=== PATIENT | male | born 1955 | race Caucasian/White ===

== ENCOUNTER 2020-04-22 10:28 | Outpatient (REF) | payer MEDICARE, SELFPAY ==
[2020-04-22 11:15] LABS: MANUAL DIFF FLAG NO
[2020-04-22 11:31] LABS: Basophils Percent Auto 0.2 % (0-2); Eosinophils Percent Auto 0.2 % (0-4); Hematocrit 45.9 % (42-52); Hemoglobin 15.9 g/dl (14.0-18.0); Imm Gran Abs Auto 0.03 X10*3/uL (0.00-0.03); Imm Gran Pct Auto 0.6 % (0.0-0.4); Lymphocytes Absolute Auto 1.8 X10*3/uL (1.2-4.9); Lymphocytes Percent Auto 35.3 % (20-40); Mean Corpuscular HGB Conc 34.6 g/dl (31.0-36.0); Mean Corpuscular Hemoglobin 29.9 pg (27.0-33.0); Mean Corpuscular Volume 86.3 fL (80-98); Mean Platelet Volume 9.2 fL (9.4-12.4); Monocytes Absolute Auto 0.5 X10*3/uL (0.1-1.2); Monocytes Percent Auto 9.8 % (2-11); Neutrophils Absolute Auto 2.7 X10*3/uL (2.0-8.3); Neutrophils Percent Auto 53.9 % (45-73); Platelet Count 255 X10*3/uL (160-400); Red Blood Count 5.32 X10*6/uL (4.60-5.80); Red Cell Distribution Width 12.8 % (11.0-16.0)
[2020-04-22 12:16] LABS: Anion Gap 13 (12-20); Blood Urea Nitrogen 18 mg/dL (9-16); Calcium 8.8 mg/dL (8.4-10.2); Carbon Dioxide 28 mmol/L (22-29); Chloride 102 mmol/L (96-108); Cholesterol 139 mg/dL; Estimated Glomerular Filt Rate > 60; Glucose Fasting 93 mg/dL (60-99); HDL Cholesterol 35 mg/dL; LDL Cholesterol Calculated 65 mg/dl; Potassium 4.3 mmol/l (3.3-5.1); Sodium 139 mmol/L (135-145); Triglycerides 199 mg/dL
== END 2020-04-22 10:29 | disposition home or self-care (01) ==
LOC: HO.HMGCLDS 10:28
PROVIDERS: PCP Internal Medicine; Visit Provider Internal Medicine
DX: E66.9 Obesity, unspecified (principal); K21.9 Gastro-esophageal reflux disease without esophagitis; I10 Essential (primary) hypertension; E78.9 Disorder of lipoprotein metabolism, unspecified; J45.909 Unspecified asthma, uncomplicated; Z91.09 Other allergy status, other than to drugs and biological substances
CPT/HCPCS: 36415; 80048; 80061; 84443; 85025

== ENCOUNTER 2020-08-26 12:08 | Outpatient (REF) | payer MEDICARE, SELFPAY ==
[2020-08-26 14:45] LABS: Alanine Aminotransferase 31 U/L (0-40); Albumin Level 4.4 g/dL (3.5-5.0); Alkaline Phosphatase 81 U/L (39-117); Anion Gap 16 (12-20); Aspartate Amino Transferase 24 U/L (5-37); Bilirubin Total 1.3 mg/dL (0.0-1.0); Blood Urea Nitrogen 13 mg/dL (9-16); Calcium 9.5 mg/dL (8.4-10.2); Carbon Dioxide 29 mmol/L (22-29); Chloride 101 mmol/L (96-108); Estimated Glomerular Filt Rate > 60; Glucose Random 91 mg/dL (60-115); Potassium 4.1 mmol/L (3.3-5.1); Sodium 142 mmol/L (135-145); Total Protein 7.6 g/dL (6.5-8.0)
[2020-08-26 15:01] LABS: Vitamin B12 379 pg/mL (200-900)
[2020-08-26 15:06] LABS: Prostate Specific Antigen 2.39 ng/mL (<0.05-4.0)
== END 2020-08-26 12:09 | disposition home or self-care (01) ==
LOC: HO.HMGCLDS 12:08
PROVIDERS: PCP Internal Medicine; Visit Provider Internal Medicine
DX: E53.8 Deficiency of other specified B group vitamins (principal); E66.9 Obesity, unspecified; R35.1 Nocturia; K21.9 Gastro-esophageal reflux disease without esophagitis; J45.909 Unspecified asthma, uncomplicated; I10 Essential (primary) hypertension; E78.9 Disorder of lipoprotein metabolism, unspecified; Z91.09 Other allergy status, other than to drugs and biological substances
CPT/HCPCS: 36415; 80053; 82607; 84153

== ENCOUNTER 2021-03-07 07:01 | Outpatient (REF) | payer MEDICARE, SELFPAY ==
[2021-03-07 11:55] LABS: MANUAL DIFF FLAG NO
[2021-03-07 12:04] LABS: Basophils Percent Auto 0.2 % (0-2); Eosinophils Percent Auto 0.5 % (0-4); Hematocrit 47.6 % (42-52); Hemoglobin 16.1 g/dl (14.0-18.0); Imm Gran Abs Auto 0.02 X10*3/uL (0.00-0.03); Imm Gran Pct Auto 0.3 % (0.0-0.4); Lymphocytes Absolute Auto 2.2 X10*3/uL (1.2-4.9); Lymphocytes Percent Auto 35.2 % (20-40); Mean Corpuscular HGB Conc 33.8 g/dl (31.0-36.0); Mean Corpuscular Hemoglobin 29.4 pg (27.0-33.0); Mean Platelet Volume 9.9 fL (9.4-12.4); Monocytes Absolute Auto 0.6 X10*3/uL (0.1-1.2); Monocytes Percent Auto 9.7 % (2-11); Neutrophils Absolute Auto 3.3 X10*3/uL (2.0-8.3); Neutrophils Percent Auto 54.1 % (45-73); Platelet Count 238 X10*3/uL (160-400); Red Blood Count 5.47 X10*6/uL (4.60-5.80); Red Cell Distribution Width 13.3 % (11.0-16.0); White Blood Count 6.1 X10*3/uL (4.8-10.8)
[2021-03-07 12:32] LABS: TSH reflex Free T4 0.87 uIU/mL (0.32-4.0)
[2021-03-07 12:33] LABS: Alanine Aminotransferase 28 U/L (0-40); Albumin Level 4.2 g/dL (3.5-5.0); Alkaline Phosphatase 79 U/L (39-117); Anion Gap 13 (12-20); Aspartate Amino Transferase 20 U/L (5-37); Blood Urea Nitrogen 16 mg/dL (9-16); Calcium 9.2 mg/dL (8.4-10.2); Carbon Dioxide 28 mmol/L (22-29); Chloride 103 mmol/L (96-108); Cholesterol 168 mg/dL; Estimated Glomerular Filt Rate > 60; Glucose Fasting 120 mg/dL (60-99); HDL Cholesterol 38 mg/dL; LDL Cholesterol Calculated 79 mg/dl; Potassium 3.9 mmol/L (3.3-5.1); Sodium 140 mmol/L (135-145); Triglycerides 259 mg/dL
[2021-03-07 12:43] LABS: Total Protein 7.3 g/dL (6.5-8.0)
[2021-03-07 12:45] LABS: Vitamin B12 275 pg/mL (200-900)
== END 2021-03-07 07:02 | disposition home or self-care (01) ==
LOC: HO.HMGCLDS 07:01
PROVIDERS: PCP Internal Medicine; Visit Provider Internal Medicine
DX: I10 Essential (primary) hypertension (principal); R73.01 Impaired fasting glucose; E78.9 Disorder of lipoprotein metabolism, unspecified; J45.909 Unspecified asthma, uncomplicated; K21.9 Gastro-esophageal reflux disease without esophagitis; E66.9 Obesity, unspecified; E53.8 Deficiency of other specified B group vitamins; Z91.09 Other allergy status, other than to drugs and biological substances
CPT/HCPCS: 36415; 80053; 80061; 82607; 84443; 85025

== ENCOUNTER 2021-03-17 13:36 | Outpatient (REF) | payer MEDICARE, SELFPAY ==
--- NOTE | 2021-03-22 10:20 | MHC.AU.AEV ---
Adult Audiological Evaluation Date of Visit: 03/17/21 Reason for Appointment: History of hearing loss and right-sided middle ear dysfunction. Patient has used hearing aids in the past. He has history of chronic middle ear problems in his right ear. He reports that he saw [facility] Thro[facility] many years ago, and they were considering placing a PE tube in his right ear. Ultimately, the procedure was not performed, as the next time he went to the office the middle ear fluid was gone. He continues to experience middle ear issues in the right ear, including occasional discharge. Does patient feel they have a hearing loss?: Yes If Yes, Which Ear?: Both Ears Ear History: Ear Deformity: None Reported Recent Ear Drainage: Right Ear Recent Ear Pain: None Reported Family History of Hearing Loss?: Yes: Father Recent Ear Infections: Right Ear History of Ear Wax Buildup: None Reported Previous Ear Surgery: None Reported Bothersome Tinnitus/Ringing/Noises in Ears: Both Ears Blocked/Full Sensation in Ear(s): None Reported History of occupational noise exposure?: Yes History: No Medical History: Medical History: High Blood Pressure Otoscopy: Right Ear: Fluid behind tympanic membrane Left Ear: Unremarkable Tympanometry: Tympanometry performed due to: To assess integrity of the middle ear system Right Ear: Non-compliant Middle Ear System (Type B) Left Ear: Hypercompliant Middle Ear System (Type Ad) Hearing Evaluation: Transducer(s) Used: Insert Earphones Method: Conventional Audiometry Stimuli Used: Pure Tones Right Ear: Description of Hearing: Mild sloping to profound and rising to moderate mixed hearing loss Left Ear: Description of Hearing: Borderline-normal sloping to severe mixed hearing loss Speech Recognition Threshold (SRT): Method Used: Recorded Lists Stimuli Used: Spondee Words Right Ear: 30 dBHL Left Ear: 25 dBHL Word Discrimination: Method: Recorded Lists Word Lists Used:: W-22 Right Ear: 80% at 70 dBHL Left Ear: 76% at 70 dBHL Most Comfortable Level (MCL): Right Ear: 70 dBHL Left Ear: 70 dBHL Interpretation of Results: Patient presents with mixed hearing loss bilaterally, worse in the right ear. Fluid was noted behind the right tympanic membrane. Recommendations: Referral to [facility], [facility] and Throat is highly recommended to address on-going middle ear fluid/discharge in the right ear. Patient is interested in using hearing aids again. At this time, our clinic is not able to accept the hearing aid benefit from his insurance provider. It is recommended that he contact his insurance provider to inquire about the hearing aid benefit and to see which clinics in the area are participating providers. Diagnosis: Primary Diagnosis: H90.6 Mixed Hearing Loss, Bilateral Signature: Provider: Lindsey Hopkins, [facility]
== END 2021-03-17 13:37 | disposition home or self-care (01) ==
LOC: HO.SH 13:36
PROVIDERS: Visit Provider Internal Medicine
DX: H90.6 Mixed conductive and sensorineural hearing loss, bilateral (principal)
CPT/HCPCS: 92557; 92567

== ENCOUNTER 2021-10-04 10:26 | Outpatient (REF) | payer MEDICARE, SELFPAY ==
[2021-10-04 11:36] LABS: Estimated Average Glucose 117 mg/dL; Hemoglobin A1c % 5.7 %
[2021-10-04 11:48] LABS: Alanine Aminotransferase 48 U/L (0-40); Albumin Level 4.2 g/dL (3.5-5.0); Alkaline Phosphatase 91 U/L (39-117); Anion Gap 10 (12-20); Aspartate Amino Transferase 32 U/L (5-37); Bilirubin Total 1.3 mg/dL (0.0-1.0); Blood Urea Nitrogen 11 mg/dL (9-16); Calcium 9.5 mg/dL (8.4-10.2); Carbon Dioxide 31 mmol/L (22-29); Chloride 101 mmol/L (96-108); Estimated Glomerular Filt Rate > 60; Glucose Random 116 mg/dL (60-115); Potassium 4.3 mmol/L (3.3-5.1); Sodium 138 mmol/L (135-145); Total Protein 7.5 g/dL (6.5-8.0)
[2021-10-06 03:51] LABS: LDL Cholesterol Direct 84 mg/dL (<100)
== END 2021-10-04 10:27 | disposition home or self-care (01) ==
LOC: HO.HMGCLDS 10:26
PROVIDERS: Visit Provider Internal Medicine
DX: E53.8 Deficiency of other specified B group vitamins (principal); E66.9 Obesity, unspecified; E78.9 Disorder of lipoprotein metabolism, unspecified; I10 Essential (primary) hypertension; J45.20 Mild intermittent asthma, uncomplicated; K21.9 Gastro-esophageal reflux disease without esophagitis; R35.89 Other polyuria; Z91.09 Other allergy status, other than to drugs and biological substances
CPT/HCPCS: 36415; 80053; 83036; 83721

== ENCOUNTER 2022-04-16 09:58 | Outpatient (REF) | payer MEDICARE, SELFPAY ==
[2022-04-16 11:51] LABS: Estimated Average Glucose 105 mg/dL; Hemoglobin A1c % 5.3 %
[2022-04-16 12:00] LABS: Alanine Aminotransferase 23 U/L (0-40); Albumin Level 4.2 g/dL (3.5-5.0); Alkaline Phosphatase 78 U/L (39-117); Anion Gap 16 (12-20); Aspartate Amino Transferase 20 U/L (5-37); Bilirubin Total 1.1 mg/dL (0.0-1.0); Blood Urea Nitrogen 16 mg/dL (9-16); Calcium 9.3 mg/dL (8.4-10.2); Carbon Dioxide 27 mmol/L (22-29); Chloride 102 mmol/L (96-108); Estimated Glomerular Filt Rate > 60; Glucose Random 107 mg/dL (60-115); Potassium 3.9 mmol/L (3.3-5.1); Sodium 141 mmol/L (135-145); Total Protein 7.2 g/dL (6.5-8.0)
[2022-04-16 13:21] LABS: Vitamin B12 416 pg/mL (200-900)
[2022-04-20 15:22] LABS: Vitamin D 25-OH, D2 <4 ng/mL; Vitamin D 25-OH, D3 34 ng/mL; Vitamin D 25-OH, Total 34 ng/mL (30-100)
== END 2022-04-16 09:59 | disposition home or self-care (01) ==
LOC: HO.HMGCLDS 09:58
PROVIDERS: PCP Internal Medicine; Visit Provider Internal Medicine
DX: E53.8 Deficiency of other specified B group vitamins (principal); E66.09 Other obesity due to excess calories; E78.9 Disorder of lipoprotein metabolism, unspecified; I10 Essential (primary) hypertension; K21.9 Gastro-esophageal reflux disease without esophagitis; R73.01 Impaired fasting glucose; R79.89 Other specified abnormal findings of blood chemistry; Z91.09 Other allergy status, other than to drugs and biological substances
CPT/HCPCS: 36415; 80053; 82306; 82607; 83036

== ENCOUNTER → 2022-06-07 10:40 | Outpatient (BNVA) | payer MEDICARE, SELFPAY | PROVIDERS: PCP Internal Medicine; Visit Provider Nurse Practitioner Family | DX: G89.29 Other chronic pain (principal); M54.50 Low back pain, unspecified; M25.552 Pain in left hip; M25.562 Pain in left knee; M62.838 Other muscle spasm | CPT/HCPCS: 99202 ==

== ENCOUNTER 2022-06-12 11:10 | Outpatient (REF) | payer MEDICARE, SELFPAY ==
--- NOTE | ~2022-06-12 | XR_ITS ---
EXAMINATION: XR BILATERAL HIPS WITH AP PELVIS CLINICAL INFORMATION: M25.552 - Pain in left hip COMPARISON: None TECHNIQUE: AP view of the pelvis is performed. Each hip is imaged in AP and frog-lateral projections for a total of 5 views. FINDINGS: There is no fracture, dislocation, destructive process. The SI joints and pubis show no diastases. The bony pelvis is intact. There is some mild bilateral spurring versus punctate mineralization adjacent to the ischial tuberosities likely related to origin hamstrings. There is mild loss of height vertebral body L4 with associated vertebral spurring suggesting probable chronic change. Clinically correlate. The right hip shows no joint narrowing or erosive change. There is minor spurring caudal aspect greater trochanter. Probable punctate mineralization adjacent to superior aspect right intertrochanteric likely related to tendon insertion. Left hip shows no joint narrowing or erosive change. There is spurring greater trochanter with some subtle mineralization likely related to the tendon insertion. There is also some benign calcification in the posterior lateral upper thigh soft tissues, possibly injection granuloma or related to old trauma. XR/XR hip BI w PEL1V IMPRESSION: -No hip joint narrowing or erosive change. -Mineralization near origin hamstrings and tendon insertion greater trochanters suggesting calcific tendinosis. -Mild loss of height vertebral body L4 with associated vertebral spurring suggesting probable chronic change. Clinically correlate.
--- NOTE | ~2022-06-12 | XR_ITS ---
EXAMINATION: XR KNEE, LEFT CLINICAL INFORMATION: M25.562 - Pain in left knee COMPARISON: None TECHNIQUE: Three views of the left knee. FINDINGS: Normal bony mineralization. No fracture, dislocation, or destructive process. No joint narrowing or erosive change. No suprapatellar effusion. Hoffa's fat. Appears normal. No lateralization or tilting patella. XR/XR knee LT 3V IMPRESSION: Unremarkable left knee.
== END 2022-06-12 11:11 | disposition home or self-care (01) ==
LOC: HO.XRAY 11:10
PROVIDERS: PCP Internal Medicine; Visit Provider Nurse Practitioner Family
DX: M25.552 Pain in left hip (principal); M25.562 Pain in left knee
CPT/HCPCS: 73521; 73562

== ENCOUNTER 2022-07-24 07:08 | Outpatient (REF) | payer MEDICARE, SELFPAY | END 2022-07-24 07:09 | disposition home or self-care (01) | LOC: CF 07:08 | PROVIDERS: Visit Provider Anesthesiology | DX: M25.552 Pain in left hip (principal); M25.562 Pain in left knee; M62.838 Other muscle spasm; M54.50 Low back pain, unspecified; G89.29 Other chronic pain | CPT/HCPCS: 20610; 99212 ==

== ENCOUNTER 2022-10-25 10:11 | Outpatient (REF) | payer MEDICARE, SELFPAY ==
[2022-10-25 11:20] LABS: MANUAL DIFF FLAG NO
[2022-10-25 11:36] LABS: Basophils Percent Auto 0.4 % (0-2); Eosinophils Percent Auto 0.4 % (0-4); Hematocrit 44.8 % (42.0-52.0); Hemoglobin 15.7 g/dl (14.0-18.0); Imm Gran Abs Auto 0.03 X10*3/uL (0.00-0.03); Imm Gran Pct Auto 0.6 % (0.0-0.4); Lymphocytes Absolute Auto 1.7 X10*3/uL (1.2-4.9); Lymphocytes Percent Auto 31.8 % (20-40); Mean Corpuscular Volume 85.5 fL (80.0-98.0); Mean Platelet Volume 9.6 fL (9.4-12.4); Monocytes Absolute Auto 0.6 X10*3/uL (0.1-1.2); Monocytes Percent Auto 10.4 % (2-11); Neutrophils Percent Auto 56.4 % (45-73); Platelet Count 230 X10*3/uL (160-400); Red Blood Count 5.24 X10*6/uL (4.60-5.80); Red Cell Distribution Width 13.2 % (11.0-16.0); White Blood Count 5.4 X10*3/uL (4.8-10.8)
[2022-10-25 11:38] LABS: Estimated Average Glucose 103 mg/dL; Hemoglobin A1c % 5.2 %
[2022-10-25 12:00] LABS: Alanine Aminotransferase 24 U/L (0-40); Albumin Level 4.2 g/dL (3.5-5.0); Alkaline Phosphatase 76 U/L (39-117); Anion Gap 13 (12-20); Aspartate Amino Transferase 23 U/L (5-37); Bilirubin Total 2.1 mg/dL (0.0-1.0); Blood Urea Nitrogen 16 mg/dL (9-16); Calcium 9.8 mg/dL (8.4-10.2); Carbon Dioxide 29 mmol/L (22-29); Chloride 103 mmol/L (96-108); Cholesterol 162 mg/dL; Estimated Glomerular Filt Rate > 60; Glucose Fasting 95 mg/dL (60-99); Glucose Random 95 mg/dL (60-115); HDL Cholesterol 35 mg/dL; LDL Cholesterol Calculated 72 mg/dl; Potassium 3.9 mmol/L (3.3-5.1); Sodium 141 mmol/L (135-145); Triglycerides 275 mg/dL
[2022-10-25 12:21] LABS: Vitamin B12 467 pg/mL (200-900)
[2022-11-01 17:38] LABS: Vitamin D 25-OH, D2 <4 ng/mL; Vitamin D 25-OH, D3 34 ng/mL; Vitamin D 25-OH, Total 34 ng/mL (30-100)
== END 2022-10-25 10:12 | disposition home or self-care (01) ==
LOC: HO.HMGCLDS 10:11
PROVIDERS: PCP Internal Medicine; Visit Provider Internal Medicine
DX: Z00.01 Encounter for general adult medical examination with abnormal findings (principal); E53.8 Deficiency of other specified B group vitamins; E66.09 Other obesity due to excess calories; E78.9 Disorder of lipoprotein metabolism, unspecified; I10 Essential (primary) hypertension; J45.20 Mild intermittent asthma, uncomplicated; K21.9 Gastro-esophageal reflux disease without esophagitis; Z91.09 Other allergy status, other than to drugs and biological substances; R73.01 Impaired fasting glucose
CPT/HCPCS: 36415; 80053; 80061; 82306; 82607; 83036; 85025

== ENCOUNTER 2023-02-25 09:05 | Outpatient (REF) | payer MEDICARE, SELFPAY ==
[2023-02-25 11:57] LABS: MANUAL DIFF FLAG NO
[2023-02-25 12:11] LABS: Basophils Percent Auto 0.4 % (0-2); Eosinophils Percent Auto 0.6 % (0-4); Hematocrit 45.2 % (42.0-52.0); Hemoglobin 15.5 g/dl (14.0-18.0); Imm Gran Abs Auto 0.01 X10*3/uL (0.00-0.03); Imm Gran Pct Auto 0.2 % (0.0-0.4); Lymphocytes Absolute Auto 1.6 X10*3/uL (1.2-4.9); Lymphocytes Percent Auto 33.3 % (20-40); Mean Corpuscular HGB Conc 34.3 g/dl (31.0-36.0); Mean Corpuscular Hemoglobin 29.6 pg (27.0-33.0); Mean Corpuscular Volume 86.3 fL (80.0-98.0); Mean Platelet Volume 9.6 fL (9.4-12.4); Monocytes Absolute Auto 0.4 X10*3/uL (0.1-1.2); Monocytes Percent Auto 8.4 % (2-11); Neutrophils Absolute Auto 2.8 x10*3/uL (2.0-8.3); Neutrophils Percent Auto 57.1 % (45-73); Platelet Count 203 X10*3/uL (160-400); Red Blood Count 5.24 X10*6/uL (4.60-5.80); Red Cell Distribution Width 13.3 % (11.0-16.0); White Blood Count 4.9 X10*3/uL (4.8-10.8)
[2023-02-25 13:26] LABS: Vitamin B12 895 pg/mL (200-900)
[2023-03-02 18:28] LABS: Vitamin D 25-OH, D2 <4 ng/mL; Vitamin D 25-OH, D3 33 ng/mL; Vitamin D 25-OH, Total 33 ng/mL (30-100)
== END 2023-02-25 09:06 | disposition home or self-care (01) ==
LOC: HO.HMGCLDS 09:05
PROVIDERS: PCP Internal Medicine; Visit Provider Internal Medicine
DX: Z00.01 Encounter for general adult medical examination with abnormal findings (principal); E66.09 Other obesity due to excess calories; E53.8 Deficiency of other specified B group vitamins; E78.9 Disorder of lipoprotein metabolism, unspecified; I10 Essential (primary) hypertension; K21.9 Gastro-esophageal reflux disease without esophagitis; J45.20 Mild intermittent asthma, uncomplicated; Z91.09 Other allergy status, other than to drugs and biological substances
CPT/HCPCS: 36415; 82306; 82607; 85025

== ENCOUNTER 2023-02-26 09:58 | Outpatient (AMB) | payer MEDICARE, SELFPAY ==
--- NOTE | 2023-02-26 10:02 | MHC.PC.OV ---
Vital Signs 02/26/23 10:09 Height 5 ft 8 in Weight 231 lb 8 oz BMI 35.2 BP 112/74 Blood Pressure Location Lt brachial Position Sitting Pulse 68 Pulse Source Pulse Oximeter Pulse Oximetry (%) 96 Oxygen Delivery Method Room Air Intake Visit Reasons: 3m follow up htn Allergies acetaminophen [Percocet] Allergy (Unknown, Verified 02/26/23 10:02) Unknown amlodipine Allergy (Unknown, Verified 02/26/23 10:02) foot swelling codeine Allergy (Unknown, Verified 02/26/23 10:02) Unknown oxycodone [Percocet] Allergy (Unknown, Verified 02/26/23 10:02) Unknown atenolol Adverse Reaction (Mild, Verified 02/26/23 10:02) bradycardia Environmental Allergy (Unknown, Uncoded 09/08/22 11:19) Unknown Medication List - Last Reconciled 02/26/23 by Keena Scherer MD albuterol sulfate 90 mcg/actuation (ProAir HFA) 2 puffs inhalation Q4H PRN aspirin (Adult Low Dose Aspirin) 81 mg PO DAILY azithromycin 250 mg PO ONCE 5 days cetirizine (All Day Allergy (cetirizine)) 10 mg PO DAILY PRN 90 days cholecalciferol (vitamin D3) 50 mcg PO DAILY cyanocobalamin (vitamin B-12) 1,000 mcg PO DAILY 90 days fluticasone propionate 50 mcg/actuation 1 spray intranasal DAILY irbesartan-hydrochlorothiazide 300-12.5 mg 1 tab PO DAILY 90 days lisinopril 10 mg PO DAILY omega-3 acid ethyl esters 2 caps PO BID 90 days omeprazole 20 mg PO DAILY 90 days simvastatin 20 mg PO DAILY 90 days Tobacco use date assessed: 02/26/23 Fall risk assessment: No Falls in past year Last assessed Fall Risk: 02/26/23 Dental Screening Dental Screen Date: 02/26/23 Did you have a dental visit in the last 12 months?: No Did you have a dental problem in the last 6 months where you did not have access to dental care?: No Was dental information given to patient?: Patient declined HPI 3m follow up htn HPI Details Patient is a 67-year-old male came in today for his regular follow-up visit.? Hypertension:? Patient was on irbesartan hydrochlorothiazide and lisinopril, I have stopped lisinopril I have sent irbesartan 300 mg separately and increased hydrochlorothiazide to 25 mg He has developed tinea corporis, and is requesting treatment I have sent 1 tablet of Diflucan 200 mg Continue B12 and vitamin-D, Patient is on omeprazole for dyspepsia.? Symptoms controlled Impaired fasting sugar: Diet-controlled BMI is elevated, need to lose weight Back pain management through [facility] Allergies stable patient is on Flonase nasal spray and Zyrtec ? Follow-up 3 months Labs to be repeated before next visit [facility] Medical History B12 deficiency Obesity Environmental allergies Chronic GERD Asthma Hypertension, essential Lipid disorder Surgical History History of appendectomy Family History Father History of open heart surgery Kidney stone HTN (hypertension) Mother HTN (hypertension) Rheumatoid arthritis Maternal Grandfather No problems noted. Maternal Grandmother No problems noted. Paternal Grandfather Diabetes mellitus Stroke Maternal Grandmother No problems noted. Sister No problems noted. Daughter No problems noted. Brother No problems noted. Brother No problems noted. Brother No problems noted. Brother No problems noted. Brother No problems noted. Social History Housing: House Alcohol intake: never Patient Tobacco Use Status: Former Tobacco user Years Smoked: 3 years e-Cigarette/Vaping Use: Never Used service: No Current occupational status: retired Cognitive needs: No Hearing needs: No Vision needs: Yes Questionnaire PHQ-9 Over the last 2 weeks, how often have you been bothered by any of the following problems? 1. Little interest or pleasure in doing things: not at all 2. Feeling down, depressed, or hopeless: not at all 3. Trouble falling or staying asleep, or sleeping too much: not at all 4. Feeling tired or having little energy: not at all 5. Poor appetite or overeating: not at all 6. Feeling bad about yourself - or that you are a failure or have let yourself or your family down: not at all 7. Trouble concentrating on things, such as reading the newspaper or watching television: not at all 8. Moving or speaking so slowly that other people could have noticed. Or the opposite - being so fidgety or restless that you have been moving around a lot more than usual: not at all 9. Thoughts that you would be better off or of hurting yourself in some way: not at all Total score: 0 Depression Screening Interpretation: Negative 28244 - PHQ-9 Billing: Yes Source: Developed by Drs. Tim Howard, Hilary Landis, Nacho Putnam and colleagues, with an educational nicole from [employer]. Thrive Questionnaire Date Thrive assessed: 10/17/21 BENITA-7 AMB Questionnaire BENITA-7 Date BENITA - 7 assessed: 10/17/21 Source: Developed by Drs. Tim Howard, Hilary Ladnis, Nacho Putnam and colleagues, with an educational nicole from [employer]. Review of Systems Const Denies chills and Denies fever(s) ENT Denies epistaxis and Denies nasal discharge Card Denies chest pain Resp Denies chest congestion, Denies cough and Denies hemoptysis GI Denies diarrhea and Denies nausea Neuro Reports no additional complaints Psych Reports no additional complaints Endo Reports no additional complaints Physical exam (Primary Care) Vital Signs: Last Vital Signs Pulse 68 02/26/23 10:09 BP 112/74 02/26/23 10:09 Pulse Ox 96 02/26/23 10:09 Oxygen Delivery Method Room Air 02/26/23 10:09 BMI result Body Mass Index 35.2 Tobacco/Smoking Status: Tobacco use Status Tobacco use date assessed 02/26/23 02/26/23 10:03 Patient Tobacco Use Status Former Tobacco user 02/26/23 10:03 e-Cigarette/Vaping Use Never Used 02/26/23 10:03 Depression Screening Interpretation: Negative Thrive Assessment: Date of Thrive Assessment Date Thrive assessed 10/17/21 02/26/23 10:03 Const General: cooperative, comfortable and no acute distress Orientation/consciousness: patient oriented x3 HENMT Head: Yes normocephalic Eyes General: appearance normal, both eyes and all related structures Neck Neck: Yes supple Resp Effort & Inspection: normal respiratory effort, no cough and no stridor Cardio Rhythm: regular rhythm Heart sounds: S1 normal heart sound present and S2 normal heart sound present Skin Other: Patchy discolored rash with skills at the age scattered all over body General skin exam: turgor normal Neuro General: patient oriented x3, tone normal and moves all extremities Extrem Right lower extremity: no edema Left lower extremity: no edema Assessment and Plan Assessment & Plan (1) Hypertension, essential: Code(s): I10 - Essential (primary) hypertension (2) Lipid disorder: Code(s): E78.9 - Disorder of lipoprotein metabolism, unspecified (3) Chronic GERD: Code(s): K21.9 - Gastro-esophageal reflux disease without esophagitis (4) Asthma: Code(s): J45.909 - Unspecified asthma, uncomplicated Qualifiers: Asthma complication type: unspecified Asthma persistence: intermittent Asthma severity: mild Qualified Code(s): J45.20 - Mild intermittent asthma, uncomplicated (5) Environmental allergies: Code(s): Z91.09 - Other allergy status, other than to drugs and biological substances (6) B12 deficiency: Code(s): E53.8 - Deficiency of other specified B group vitamins (7) Obesity due to excess calories: Code(s): E66.09 - Other obesity due to excess calories Qualifiers: Body mass index: BMI 35.0-35.9 Obesity classification: adult class 2 (BMI 35 - 39.9) Serious obesity comorbidity presence: with serious comorbidity Qualified Code(s): E66.01 - Morbid (severe) obesity due to excess calories; Z68.35 - Body mass index [BMI] 35.0-35.9, adult (8) Elevated fasting blood sugar: Code(s): R73.01 - Impaired fasting glucose (9) 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 Hypertension:? Patient was on irbesartan hydrochlorothiazide and lisinopril, I have stopped lisinopril I have sent irbesartan 300 mg separately and increased hydrochlorothiazide to 25 mg He has developed tinea corporis, and is requesting treatment I have sent 1 tablet of Diflucan 200 mg Continue B12 and vitamin-D, Patient is on omeprazole for dyspepsia.? Symptoms controlled Impaired fasting sugar: Diet-controlled BMI is elevated, need to lose weight Back pain management through [facility] Allergies stable patient is on Flonase nasal spray and Zyrtec ? Follow-up 3 months Labs to be repeated before next visit Orders: Orders Vitamin B12 Today E53.8 - Deficiency of other specified B group vitamins, R73.01 - Impaired fasting glucose Hemoglobin A1c Today E53.8 - Deficiency of other specified B group vitamins, R73.01 - Impaired fasting glucose Comprehensive Met. Panel Today E53.8 - Deficiency of other specified B group vitamins, E66.09 - Other obesity due to excess calories, E78.9 - Disorder of lipoprotein metabolism, unspecified, I10 - Essential (primary) hypertension, J45.909 - Unspecified asthma, uncomplicated, K21.9 - Gastro-esophageal reflux disease without esophagitis, R73.01 - Impaired fasting glucose, Z91.09 - Other allergy status, other than to drugs and biological substances LDL Cholesterol Direct Today E53.8 - Deficiency of other specified B group vitamins, E66.09 - Other obesity due to excess calories, E78.9 - Disorder of lipoprotein metabolism, unspecified, I10 - Essential (primary) hypertension, J45.909 - Unspecified asthma, uncomplicated, K21.9 - Gastro-esophageal reflux disease without esophagitis, R73.01 - Impaired fasting glucose, Z91.09 - Other allergy status, other than to drugs and biological substances Medications: New irbesartan 300 mg PO DAILY 90 tabs 1RF hydrochlorothiazide 25 mg PO QAM 90 tabs 1RF fluconazole (Diflucan) 200 mg PO DAILY 1 tab 0RF Discontinued lisinopril Discontinued Reason: Doctor's Order 10 mg PO DAILY 90 tabs 0RF irbesartan-hydrochlorothiazide 300-12.5 mg Discontinued Reason: Doctor's Order 1 tab PO DAILY 90 days 90 tabs 0RF Coding Level of Care Code Est Pt Level 4 (77495) Diagnoses Hypertension, essential I10 Lipid disorder E78.9 Chronic GERD K21.9 Mild intermittent asthma, unspecified whether complicated J45.20 Asthma complication type: unspecified Asthma persistence: intermittent Asthma severity: mild Environmental allergies Z91.09 B12 deficiency E53.8 Class 2 severe obesity due to excess calories with serious comorbidity and body mass index (BMI) of 35.0 to 35.9 in adult E66.01; Z68.35 Body mass index: BMI 35.0-35.9 Obesity classification: adult class 2 (BMI 35 - 39.9) Serious obesity comorbidity presence: with serious comorbidity Elevated fasting blood sugar R73.01 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
[2023-02-26 10:09] VITALS: BP 112/74; PULSE 68; O2SAT 96; BMI 35.2
== END 2023-02-26 10:32 | disposition home or self-care (01) ==
PROVIDERS: PCP Internal Medicine; Visit Provider Internal Medicine
DX: I10 Essential (primary) hypertension (principal); K21.9 Gastro-esophageal reflux disease without esophagitis; J45.20 Mild intermittent asthma, uncomplicated; Z68.35 Body mass index [BMI] 35.0-35.9, adult; E66.01 Morbid (severe) obesity due to excess calories; Z91.09 Other allergy status, other than to drugs and biological substances; E53.8 Deficiency of other specified B group vitamins; E78.9 Disorder of lipoprotein metabolism, unspecified; R73.01 Impaired fasting glucose; B35.4 Tinea corporis
CPT/HCPCS: 99214

== ENCOUNTER 2023-05-16 11:12 | Outpatient (REF) | payer MEDICARE, SELFPAY ==
[2023-05-16 13:44] LABS: Estimated Average Glucose 108 mg/dL; Hemoglobin A1c % 5.4 % (<6.0)
[2023-05-16 13:50] LABS: Alanine Aminotransferase 22 U/L (0-40); Albumin Level 4.3 g/dL (3.5-5.0); Alkaline Phosphatase 91 U/L (39-117); Anion Gap 14 (12-20); Aspartate Amino Transferase 22 U/L (5-37); Bilirubin Total 1.7 mg/dL (0.0-1.0); Blood Urea Nitrogen 14 mg/dL (9-16); Calcium 9.6 mg/dL (8.4-10.2); Carbon Dioxide 28 mmol/L (22-29); Chloride 100 mmol/L (96-108); Estimated Glomerular Filt Rate > 60; Glucose Random 90 mg/dL (60-115); Potassium 4.2 mmol/L (3.3-5.1); Sodium 138 mmol/L (135-145); Total Protein 7.7 g/dL (6.5-8.0)
[2023-05-16 14:12] LABS: Vitamin B12 801 pg/mL (200-900)
[2023-05-17 13:05] LABS: LDL Cholesterol Direct 67 mg/dL (<100)
== END 2023-05-16 11:13 | disposition home or self-care (01) ==
LOC: HO.HMGCLDS 11:12
PROVIDERS: PCP Internal Medicine; Visit Provider Internal Medicine
DX: E53.8 Deficiency of other specified B group vitamins (principal); R73.01 Impaired fasting glucose; E78.9 Disorder of lipoprotein metabolism, unspecified; I10 Essential (primary) hypertension; J45.909 Unspecified asthma, uncomplicated; K21.9 Gastro-esophageal reflux disease without esophagitis; E66.09 Other obesity due to excess calories; Z91.09 Other allergy status, other than to drugs and biological substances
CPT/HCPCS: 36415; 80053; 82607; 83036; 83721

== ENCOUNTER 2023-06-19 14:15 | Outpatient (AMB) | payer MEDICARE, SELFPAY ==
[2023-06-19 14:16] VITALS: BP 132/80; PULSE 50; O2SAT 98; BMI 35.4
--- NOTE | 2023-06-19 14:16 | A.OFFPC_ITS ---
Vital Signs 06/19/23 14:16 Height 5 ft 8 in Weight 233 lb BMI 35.4 BP 132/80 Blood Pressure Location Lt brachial Position Sitting Pulse 50 Pulse Source Pulse Oximeter Pulse Oximetry (%) 98 Oxygen Delivery Method Room Air Intake Visit Reasons: 6m follow up htn Allergies acetaminophen [Percocet] Allergy (Unknown, Verified 06/19/23 14:17) Unknown amlodipine Allergy (Unknown, Verified 06/19/23 14:17) foot swelling codeine Allergy (Unknown, Verified 06/19/23 14:17) Unknown oxycodone [Percocet] Allergy (Unknown, Verified 06/19/23 14:17) Unknown atenolol Adverse Reaction (Mild, Verified 06/19/23 14:17) bradycardia Environmental Allergy (Unknown, Uncoded 09/08/22 11:19) Unknown Medication List - Last Reconciled 06/19/23 by Keena Scherer MD albuterol sulfate 90 mcg/actuation (ProAir HFA) 2 puffs inhalation Q4H PRN aspirin (Adult Low Dose Aspirin) 81 mg PO DAILY cholecalciferol (vitamin D3) 50 mcg PO DAILY cyanocobalamin (vitamin B-12) 1,000 mcg PO DAILY 90 days fluticasone propionate 50 mcg/actuation 1 spray intranasal DAILY hydrochlorothiazide 25 mg PO QAM irbesartan 300 mg PO DAILY omega-3 acid ethyl esters 2 caps PO BID 90 days omeprazole 20 mg PO DAILY 90 days simvastatin 20 mg PO DAILY 90 days Tobacco use date assessed: 06/19/23 Fall risk assessment: No Falls in past year Last assessed Fall Risk: 06/19/23 Dental Screening Dental Screen Date: 06/19/23 Did you have a dental visit in the last 12 months?: No Did you have a dental problem in the last 6 months where you did not have access to dental care?: No Was dental information given to patient?: No HPI 6m follow up htn HPI Details Patient is a 68-year-old male came in today for his regular follow-up visit.? Patient is in his usual state of health, except that he developed cough for the past 4 days which is better now however his sinuses are acting up and he has frontal headache Patient says that he also feel congested in his chest labs were done May that is last month, reviewed again, his total bili was 1.7 we will continue to monitor Hypertension:? Patient patient is on irbesartan 300 mg and hydrochlorothiazide 25 mg, blood pressure is stable patient is tolerating medication no side effects Continue B12 and vitamin-D, Patient is on omeprazole for dyspepsia.? Symptoms controlled Impaired fasting sugar: Diet-controlled BMI is elevated, need to lose weight Back pain management through [facility] [place] Allergies stable patient is on Flonase nasal spray and Zyrtec ? He is requesting refill on his albuterol inhaler for intermittent asthma Follow-up 3 months [facility] Medical History B12 deficiency Obesity Environmental allergies Chronic GERD Asthma Hypertension, essential Lipid disorder Surgical History History of appendectomy Family History Father History of open heart surgery Kidney stone HTN (hypertension) Mother HTN (hypertension) Rheumatoid arthritis Maternal Grandfather No problems noted. Maternal Grandmother No problems noted. Paternal Grandfather Diabetes mellitus Stroke Maternal Grandmother No problems noted. Sister No problems noted. Daughter No problems noted. Brother No problems noted. Brother No problems noted. Brother No problems noted. Brother No problems noted. Brother No problems noted. Social History Housing: House Alcohol intake: never Patient Tobacco Use Status: Former Tobacco user Years Smoked: 3 years e-Cigarette/Vaping Use: Never Used service: No Current occupational status: retired Cognitive needs: No Hearing needs: No Vision needs: Yes Questionnaire Thrive Questionnaire Date Thrive assessed: 10/17/21 BENITA-7 AMB Questionnaire BENITA-7 Date BENITA - 7 assessed: 10/17/21 Source: Developed by Drs. Tim Howard, Hilary Landis, Nacho Putnam and colleagues, with an educational nicole from [employer]. Review of Systems Const Denies chills and Denies fever(s) ENT Denies epistaxis and Denies nasal discharge Card Denies chest pain Resp Denies chest congestion, Denies cough and Denies hemoptysis GI Denies diarrhea and Denies nausea Skin/Breast Denies rash Neuro Reports no additional complaints Psych Reports no additional complaints Endo Reports no additional complaints Physical exam (Primary Care) Vital Signs: Last Vital Signs Pulse 50 06/19/23 14:16 BP 132/80 06/19/23 14:16 Pulse Ox 98 06/19/23 14:16 Oxygen Delivery Method Room Air 06/19/23 14:16 BMI result Body Mass Index 35.4 Tobacco/Smoking Status: Tobacco use Status Tobacco use date assessed 06/19/23 06/19/23 14:21 Patient Tobacco Use Status Former Tobacco user 06/19/23 14:16 e-Cigarette/Vaping Use Never Used 06/19/23 14:16 Thrive Assessment: Date of Thrive Assessment Date Thrive assessed 10/17/21 06/19/23 14:16 Const General: cooperative, comfortable and no acute distress Orientation/consciousness: patient oriented x3 HENMT Head: Yes normocephalic Eyes General: appearance normal, both eyes and all related structures Neck Neck: Yes supple Resp Effort & Inspection: normal respiratory effort, no cough and no stridor Cardio Rhythm: regular rhythm Heart sounds: S1 normal heart sound present and S2 normal heart sound present Skin General skin exam: turgor normal Neuro General: patient oriented x3, tone normal and moves all extremities Extrem Right lower extremity: no edema Left lower extremity: no edema Assessment and Plan Assessment & Plan (1) Hypertension, essential: Code(s): I10 - Essential (primary) hypertension (2) Lipid disorder: Code(s): E78.9 - Disorder of lipoprotein metabolism, unspecified (3) Chronic GERD: Code(s): K21.9 - Gastro-esophageal reflux disease without esophagitis (4) Asthma: Code(s): J45.909 - Unspecified asthma, uncomplicated Qualifiers: Asthma complication type: unspecified Asthma persistence: intermittent Asthma severity: mild Qualified Code(s): J45.20 - Mild intermittent asthma, uncomplicated (5) Environmental allergies: Code(s): Z91.09 - Other allergy status, other than to drugs and biological substances (6) B12 deficiency: Code(s): E53.8 - Deficiency of other specified B group vitamins (7) Obesity due to excess calories: Code(s): E66.09 - Other obesity due to excess calories Qualifiers: Body mass index: BMI 35.0-35.9 Obesity classification: adult class 2 (BMI 35 - 39.9) Serious obesity comorbidity presence: with serious comorbidity Qualified Code(s): E66.01 - Morbid (severe) obesity due to excess calories; Z68.35 - Body mass index [BMI] 35.0-35.9, adult (8) Elevated fasting blood sugar: Code(s): R73.01 - Impaired fasting glucose (9) Acute sinusitis: Code(s): J01.90 - Acute sinusitis, unspecified Qualifiers: Recurrence: non-recurrent Sinusitis location: frontal Qualified Code(s): J01.10 - Acute frontal sinusitis, unspecified Plan Patient is a 68-year-old male came in today for his regular follow-up visit.? Patient is in his usual state of health, except that he developed cough for the past 4 days which is better now however his sinuses are acting up and he has frontal headache Patient says that he also feel congested in his chest labs were done May that is last month, reviewed again, his total bili was 1.7 we will continue to monitor Hypertension:? Patient patient is on irbesartan 300 mg and hydrochlorothiazide 25 mg, blood pressure is stable patient is tolerating medication no side effects Continue B12 and vitamin-D, Patient is on omeprazole for dyspepsia.? Symptoms controlled Impaired fasting sugar: Diet-controlled BMI is elevated, need to lose weight Back pain management through [facility] [place] Allergies stable patient is on Flonase nasal spray and Zyrtec ? He is requesting refill on his albuterol inhaler for intermittent asthma Follow-up 3 months Medications: New albuterol sulfate 90 mcg/actuation (ProAir HFA) 2 puffs inhalation Q4H PRN 8.5 grams 0RF bronchospasm Changed From fluticasone propionate 50 mcg/actuation administer into each nostril 1 spray intranasal DAILY To fluticasone propionate 50 mcg/actuation administer into each nostril 1 spray intranasal DAILY 16 grams 2RF 30 days Refilled cetirizine (All Day Allergy (cetirizine)) 10 mg PO DAILY PRN 90 tabs 0RF allergy symptoms 90 days Z91.09 - Other allergy status, other than to drugs and biological substances simvastatin 20 mg PO DAILY 90 tabs 0RF 90 days E78.9 - Disorder of lipoprotein metabolism, unspecified azithromycin Take 2 tablets today then 1 daily 250 mg PO ONCE 6 tabs 0RF 5 days J06.9 - Acute upper respiratory infection, unspecified Coding Level of Care Code Est Pt Level 4 (80239) Diagnoses Hypertension, essential I10 Lipid disorder E78.9 Chronic GERD K21.9 Mild intermittent asthma, unspecified whether complicated J45.20 Asthma complication type: unspecified Asthma persistence: intermittent Asthma severity: mild Environmental allergies Z91.09 B12 deficiency E53.8 Class 2 severe obesity due to excess calories with serious comorbidity and body mass index (BMI) of 35.0 to 35.9 in adult E66.01; Z68.35 Body mass index: BMI 35.0-35.9 Obesity classification: adult class 2 (BMI 35 - 39.9) Serious obesity comorbidity presence: with serious comorbidity Elevated fasting blood sugar R73.01 Acute non-recurrent frontal sinusitis J01.10 Recurrence: non-recurrent Sinusitis location: frontal
== END 2023-06-19 14:59 | disposition home or self-care (01) ==
PROVIDERS: PCP Internal Medicine; Visit Provider Internal Medicine
DX: I10 Essential (primary) hypertension (principal); E66.01 Morbid (severe) obesity due to excess calories; Z68.35 Body mass index [BMI] 35.0-35.9, adult; E78.9 Disorder of lipoprotein metabolism, unspecified; K21.9 Gastro-esophageal reflux disease without esophagitis; J45.20 Mild intermittent asthma, uncomplicated; Z91.09 Other allergy status, other than to drugs and biological substances; E53.8 Deficiency of other specified B group vitamins; R73.01 Impaired fasting glucose; J01.10 Acute frontal sinusitis, unspecified
CPT/HCPCS: 99214

== ENCOUNTER 2023-09-20 11:30 | Outpatient (AMB) | payer MEDICARE, SELFPAY ==
[2023-09-20 11:31] VITALS: BP 128/80; PULSE 79; O2SAT 97; BMI 37.1
--- NOTE | 2023-09-20 11:31 | A.OFFPC_ITS ---
Vital Signs 09/20/23 11:31 Height 5 ft 8 in Weight 244 lb BMI 37.1 BP 128/80 Blood Pressure Location Lt brachial Position Sitting Pulse 79 Pulse Source Pulse Oximeter Pulse Oximetry (%) 97 Oxygen Delivery Method Room Air Intake Visit Reasons: Annual Physical [employer] Set Up Technician Required: No Accompanied by: Self / Same As Patient Allergies acetaminophen [Percocet] Allergy (Unknown, Verified 09/20/23 11:31) Unknown amlodipine Allergy (Unknown, Verified 09/20/23 11:31) foot swelling codeine Allergy (Unknown, Verified 09/20/23 11:31) Unknown oxycodone [Percocet] Allergy (Unknown, Verified 09/20/23 11:31) Unknown atenolol Adverse Reaction (Mild, Verified 09/20/23 11:31) bradycardia Environmental Allergy (Unknown, Uncoded 09/08/22 11:19) Unknown Medication List - Last Reconciled 09/20/23 by Keena Scherer MD albuterol sulfate 90 mcg/actuation (ProAir HFA) 2 puffs inhalation Q4H PRN aspirin (Adult Low Dose Aspirin) 81 mg PO DAILY cetirizine (All Day Allergy (cetirizine)) 10 mg PO DAILY PRN 90 days cholecalciferol (vitamin D3) 50 mcg PO DAILY cyanocobalamin (vitamin B-12) 1,000 mcg PO DAILY 90 days fluticasone propionate 50 mcg/actuation 1 spray intranasal DAILY 30 days hydrochlorothiazide 25 mg PO QAM irbesartan 300 mg PO DAILY omega-3 acid ethyl esters 2 caps PO BID 90 days omeprazole 20 mg PO DAILY 90 days simvastatin 20 mg PO DAILY 90 days Tobacco use date assessed: 06/19/23 Fall risk assessment: No Falls in past year Last assessed Fall Risk: 09/20/23 Dental Screening Dental Screen Date: 06/19/23 HPI Annual Physical HPI Details Patient is a 68-year-old male came in today for his annual physical examination Patient will be due for colonoscopy in 2024 Due for labs before next visit last set of lab was in May reviewed again Hypertension:? Patient patient is on irbesartan 300 mg and hydrochlorothiazide 25 mg, blood pressure is stable patient is tolerating medication no side effects Patient is on omeprazole for dyspepsia.? Symptoms controlled Impaired fasting sugar: Diet-controlled BMI is elevated, need to lose weight Back pain management through [facility] Allergies stable patient is on Flonase nasal spray and Zyrtec ? He is requesting refill on his albuterol inhaler for intermittent asthma Follow-up 3 months [facility] Medical History B12 deficiency Obesity Environmental allergies Chronic GERD Asthma Hypertension, essential Lipid disorder Surgical History History of appendectomy Family History Father History of open heart surgery Kidney stone HTN (hypertension) Mother HTN (hypertension) Rheumatoid arthritis Maternal Grandfather No problems noted. Maternal Grandmother No problems noted. Paternal Grandfather Diabetes mellitus Stroke Maternal Grandmother No problems noted. Sister No problems noted. Daughter No problems noted. Brother No problems noted. Brother No problems noted. Brother No problems noted. Brother No problems noted. Brother No problems noted. Social History Housing: House Alcohol intake: never Patient Tobacco Use Status: Former Tobacco user Years Smoked: 3 years e-Cigarette/Vaping Use: Never Used service: No Current occupational status: retired Cognitive needs: No Hearing needs: No Vision needs: Yes Questionnaire PHQ-9 Over the last 2 weeks, how often have you been bothered by any of the following problems? 1. Little interest or pleasure in doing things: not at all 2. Feeling down, depressed, or hopeless: not at all 3. Trouble falling or staying asleep, or sleeping too much: not at all 4. Feeling tired or having little energy: not at all 5. Poor appetite or overeating: not at all 6. Feeling bad about yourself - or that you are a failure or have let yourself or your family down: not at all 7. Trouble concentrating on things, such as reading the newspaper or watching television: not at all 8. Moving or speaking so slowly that other people could have noticed. Or the opposite - being so fidgety or restless that you have been moving around a lot more than usual: not at all 9. Thoughts that you would be better off or of hurting yourself in some way : not at all Total score: 0 Depression Screening Interpretation: Negative Depression Screening Done: Yes 46827 - PHQ-9 Billing: Yes Source: Developed by Drs. Tim Howard, Hilary Landis, Nacho Putnam and colleagues, with an educational nicole from [employer]. Thrive Questionnaire Date Thrive assessed: 09/20/23 I am a: Patient What is your living situation today?: I have a steady place to live Within the past 12 months, did the food you bought not last and you didn't have the money to get more?: Never true Within the past 12 months, did you worry whether your food would run out before you got money to buy more?: Never true Do you have trouble paying for medicines?: No Do you have trouble getting transportation to medical appointments?: No Do you have trouble paying your heating and electricity bill?: No Do you have trouble taking care of your child, family member or friend?: No Do you have trouble with day-to-day activities such as bathing, preparing meals, shopping, managing finances, etc.?: No Are you currently unemployed and looking for a job?: No Are you interested in more education?: No Please select the resources that you would like help with: None Currently or been in a relationship where the following occur: no concerns reported THRIVE Score: 0 AUDIT C Alcohol Use Questionnaire (AUDIT-C) 1. How often do you have a drink containing alcohol?: Never 3. How often do you have six or more drinks on one occasion?: Never Total Score: 0 Score Reviewed/Action Taken: Yes BENITA-7 AMB Questionnaire BENITA-7 Date BENITA - 7 assessed: 09/20/23 Feeling nervous, anxious, or on edge: 0 = Not at all Not being able to stop or control worryin = Not at all Worrying too much about different things: 0 = Not at all Trouble relaxin = Not at all Being so restless that it is hard to sit still: 0 = Not at all Becoming easily annoyed or irritable: 0 = Not at all Feeling afraid as if something awful might happen: 0 = Not at all Total BENITA-7 score (0-4 normal; 5-9 mild; 10-14 moderate; 15-21 severe): 0 Source: Developed by Drs. Tim Howard, Hilary Landis, Nacho Putnam and colleagues, with an educational nicole from [employer]. BENITA-7 Assessment Billing BENITA-7 Assessment Tool: BENITA-7 Assessment 19927 Review of Systems Const Denies chills, Denies fever(s) and Denies headache(s) Eyes Denies blurry vision ENT Denies headache(s), Denies nasal discharge, Denies nasal obstruction, Denies odynophagia and Denies sinus pain Card Denies chest pain at rest and Denies chest pain with activity Resp Denies cough and Denies hemoptysis GI Denies diarrhea, Denies odynophagia, Denies vomiting and Denies hematemesis Reports as per HPI Musc Denies abnormal gait Skin/Breast Reports as per HPI Neuro Denies Neuro-related abnormal movements, Denies Abnormal speech present, Denies abnormal gait, Denies headache(s) and Denies Sensory deficit (Neuro) Psych Denies mood swings and Denies paranoia Endo Reports as per HPI [place]/Lymph Reports as per HPI Aller/Immun Reports as per HPI Physical exam (Primary Care) Vital Signs: Last Vital Signs Pulse 79 09/20/23 11:31 BP 128/80 09/20/23 11:31 Pulse Ox 97 09/20/23 11:31 Oxygen Delivery Method Room Air 09/20/23 11:31 BMI result Body Mass Index 37.1 Tobacco/Smoking Status: Tobacco use Status Tobacco use date assessed 06/19/23 09/20/23 11:35 Patient Tobacco Use Status Former Tobacco user 09/20/23 11:35 e-Cigarette/Vaping Use Never Used 09/20/23 11:35 PHQ-9: PHQ-9 Score PHQ-9: Total score 0 09/20/23 11:35 Depression Screening Interpretation: Negative Thrive Assessment: Date of Thrive Assessment Date Thrive assessed 09/20/23 09/20/23 11:35 Currently or been in a relationship where the following occur: no concerns reported Const General: cooperative, comfortable and no acute distress Orientation/consciousness: patient oriented x3 HENMT Head: Yes normocephalic and Yes atraumatic Eyes General: appearance normal, both eyes and all related structures Pupils: Equal, round and reactive pupils present EOM: EOMs intact bilaterally Neck Neck: Yes supple and No lymphadenopathy Thyroid: Thyroid normal Lymphatic: no lymphadenopathy noted Resp Effort & Inspection: normal respiratory effort and able to speak in complete sentences Auscultation: clear to auscultation bilaterally Cardio Heart sounds: S1 normal heart sound present and S2 normal heart sound present GI Palpation (GI): Soft to palpation and nontender Auscultation: normal bowel sounds General: Yes no CVA tenderness Back/Spine/Pelvis Back: no CVA tenderness Skin General skin exam: elasticity normal and turgor normal Neuro General: patient oriented x3 and gait normal Cranial nerves: Yes Equal, round and reactive pupils present Speech: No Abnormal speech present Sensory Exam: No Sensory deficit (Neuro) Coordination: tandem gait normal and Romberg test negative Extrem General: Yes normal exam except as noted and No edema Assessment and Plan Assessment & Plan (1) Encounter for general adult medical examination with abnormal findings: Code(s): Z00.01 - Encounter for general adult medical examination with abnormal findings (2) Hypertension, essential: Code(s): I10 - Essential (primary) hypertension (3) Lipid disorder: Code(s): E78.9 - Disorder of lipoprotein metabolism, unspecified (4) Chronic GERD: Code(s): K21.9 - Gastro-esophageal reflux disease without esophagitis (5) Environmental allergies: Code(s): Z91.09 - Other allergy status, other than to drugs and biological substances (6) Elevated fasting blood sugar: Code(s): R73.01 - Impaired fasting glucose (7) LFT elevation: Code(s): R79.89 - Other specified abnormal findings of blood chemistry (8) Chronic lower back pain: Code(s): M54.50 - Low back pain, unspecified; G89.29 - Other chronic pain Qualifiers: Back pain laterality: bilateral Sciatica presence: without sciatica Qualified Code(s): M54.50 - Low back pain, unspecified; G89.29 - Other chronic pain (9) Obesity due to excess calories: Code(s): E66.09 - Other obesity due to excess calories Qualifiers: Obesity classification: adult class 2 (BMI 35 - 39.9) Serious obesity comorbidity presence: with serious comorbidity Body mass index: BMI 35.0-35.9 Qualified Code(s): E66.01 - Morbid (severe) obesity due to excess calories; Z68.35 - Body mass index [BMI] 35.0-35.9, adult Plan Patient is a 68-year-old male came in today for his annual physical examination Patient will be due for colonoscopy in 2024 Due for labs before next visit last set of lab was in May reviewed again Patient has been having sinus headaches, has allergies using Flonase nasal spray It seems as if patient is not taking cetirizine have sent refill but his insurance may not cover it He has to get it [id number] and start taking it daily Hypertension:? Patient patient is on irbesartan 300 mg and hydrochlorothiazide 25 mg, blood pressure is stable patient is tolerating medication no side effects Patient is on omeprazole for dyspepsia.? Symptoms controlled Impaired fasting sugar: Diet-controlled BMI is elevated, need to lose weight Back pain management through [facility] Allergies stable patient is on Flonase nasal spray and Zyrtec ? He is requesting refill on his albuterol inhaler for intermittent asthma Follow-up 3 months Orders: Orders Complete Blood Count Auto Diff 2 Months E78.9 - Disorder of lipoprotein metabolism, unspecified, G89.29 - Other chronic pain, H53.8 - Other visual disturbances, I10 - Essential (primary) hypertension, K21.9 - Gastro-esophageal reflux disease without esophagitis, M54.50 - Low back pain, unspecified, R73.01 - Impaired fasting glucose, R79.89 - Other specified abnormal findings of blood chemistry, Z00.01 - Encounter for general adult medical examination with abnormal findings, Z91.09 - Other allergy status, other than to drugs and biological substances Comprehensive [place]. Panel Fast 2 Months E78.9 - Disorder of lipoprotein metabolism, unspecified, G89.29 - Other chronic pain, H53.8 - Other visual disturbances, I10 - Essential (primary) hypertension, K21.9 - Gastro-esophageal reflux disease without esophagitis, M54.50 - Low back pain, unspecified, R73.01 - Impaired fasting glucose, R79.89 - Other specified abnormal findings of blood chemistry, Z00.01 - Encounter for general adult medical examination with abnormal findings, Z91.09 - Other allergy status, other than to drugs and biological substances Lipid Panel 2 Months E78.9 - Disorder of lipoprotein metabolism, unspecified, G89.29 - Other chronic pain, H53.8 - Other visual disturbances, I10 - Essential (primary) hypertension, K21.9 - Gastro-esophageal reflux disease without esophagitis, M54.50 - Low back pain, unspecified, R73.01 - Impaired fasting glucose, R79.89 - Other specified abnormal findings of blood chemistry, Z00.01 - Encounter for general adult medical examination with abnormal findings, Z91.09 - Other allergy status, other than to drugs and biological substances Hemoglobin A1c Today R73.01 - Impaired fasting glucose Medications: Refilled cetirizine (All Day Allergy (cetirizine)) 10 mg PO DAILY 90 days PRN 90 tabs 0RF allergy symptoms Z91.09 - Other allergy status, other than to drugs and biological substances Coding Level of Care Code Est Pt Prev Care >65y(56518) Diagnoses Encounter for general adult medical examination with abnormal findings Z00.01 Hypertension, essential I10 Lipid disorder E78.9 Chronic GERD K21.9 Environmental allergies Z91.09 Elevated fasting blood sugar R73.01 LFT elevation R79.89 Chronic bilateral low back pain without sciatica M54.50; G89.29 Back pain laterality: bilateral Sciatica presence: without sciatica Class 2 severe obesity due to excess calories with serious comorbidity and body mass index (BMI) of 35.0 to 35.9 in adult E66.01; Z68.35 Obesity classification: adult class 2 (BMI 35 - 39.9) Serious obesity comorbidity presence: with serious comorbidity Body mass index: BMI 35.0-35.9 Additional Codes BENITA-7 Assessment Billing - BENITA-7 Assessment Tool: BENITA-7 Assessment [id number] ([id number])
== END 2023-09-20 11:59 | disposition home or self-care (01) ==
PROVIDERS: PCP Internal Medicine; Visit Provider Internal Medicine
DX: Z00.00 Encounter for general adult medical examination without abnormal findings (principal); I10 Essential (primary) hypertension; E66.01 Morbid (severe) obesity due to excess calories; Z68.35 Body mass index [BMI] 35.0-35.9, adult; E78.9 Disorder of lipoprotein metabolism, unspecified; K21.9 Gastro-esophageal reflux disease without esophagitis; Z91.09 Other allergy status, other than to drugs and biological substances; R73.01 Impaired fasting glucose; R79.89 Other specified abnormal findings of blood chemistry; M54.50 Low back pain, unspecified; G89.29 Other chronic pain
CPT/HCPCS: 99397

== ENCOUNTER 2024-01-07 10:30 | Outpatient (REF) | payer MEDICARE, SELFPAY ==
[2024-01-07 13:21] LABS: MANUAL DIFF FLAG NO
[2024-01-07 13:48] LABS: Basophils Percent Auto 0.4 % (0-2); Eosinophils Percent Auto 0.2 % (0-4); Hematocrit 44.9 % (42.0-52.0); Hemoglobin 15.7 g/dl (14.0-18.0); Imm Gran Abs Auto 0.02 X10*3/uL (0.00-0.03); Imm Gran Pct Auto 0.4 % (0.0-0.4); Lymphocytes Absolute Auto 1.6 X10*3/uL (1.2-4.9); Mean Corpuscular Volume 85.9 fL (80.0-98.0); Mean Platelet Volume 9.5 fL (9.4-12.4); Monocytes Absolute Auto 0.5 X10*3/uL (0.1-1.2); Monocytes Percent Auto 10.4 % (2-11); Neutrophils Absolute Auto 2.8 x10*3/uL (2.0-8.3); Neutrophils Percent Auto 56.6 % (45-73); Platelet Count 243 X10*3/uL (160-400); Red Blood Count 5.23 X10*6/uL (4.60-5.80); Red Cell Distribution Width 13.5 % (11.0-16.0)
[2024-01-07 13:59] LABS: Alanine Aminotransferase 41 U/L (0-40); Albumin Level 4.2 g/dL (3.5-5.0); Alkaline Phosphatase 76 U/L (39-117); Anion Gap 17 (12-20); Aspartate Amino Transferase 34 U/L (5-37); Bilirubin Total 1.3 mg/dL (0.0-1.0); Blood Urea Nitrogen 18 mg/dL (9-16); Calcium 9.2 mg/dL (8.4-10.2); Carbon Dioxide 27 mmol/L (22-29); Chloride 104 mmol/L (96-108); Cholesterol 154 mg/dL (<200); Estimated Glomerular Filt Rate > 60; Glucose Fasting 103 mg/dL (60-99); HDL Cholesterol 36 mg/dL (>40); LDL Cholesterol Calculated 79 mg/dL (<100); Potassium 3.6 mmol/L (3.3-5.1); Sodium 144 mmol/L (135-145); Total Protein 7.6 g/dL (6.5-8.0); Triglycerides 196 mg/dL (<150)
[2024-01-07 14:00] LABS: Estimated Average Glucose 108 mg/dL; Hemoglobin A1c % 5.4 % (<6.0)
== END 2024-01-07 10:31 | disposition home or self-care (01) ==
LOC: HO.HMGCLDS 10:30
PROVIDERS: PCP Internal Medicine; Visit Provider Internal Medicine
DX: Z00.01 Encounter for general adult medical examination with abnormal findings (principal); I10 Essential (primary) hypertension; E78.9 Disorder of lipoprotein metabolism, unspecified; K21.9 Gastro-esophageal reflux disease without esophagitis; Z91.09 Other allergy status, other than to drugs and biological substances; R73.01 Impaired fasting glucose; H53.8 Other visual disturbances; R79.89 Other specified abnormal findings of blood chemistry; M54.50 Low back pain, unspecified; G89.29 Other chronic pain
CPT/HCPCS: 36415; 80053; 80061; 83036; 85025

== ENCOUNTER 2024-02-12 10:02 | Outpatient (AMB) | payer MEDICARE, SELFPAY ==
[2024-02-12 10:06] VITALS: BP 138/86; PULSE 61; TEMP 36.8; O2SAT 94; BMI 36.4
--- NOTE | 2024-02-12 10:06 | MHC.PC.OV ---
Vital Signs 02/12/24 10:06 Height 5 ft 8 in Weight 239 lb 4 oz BMI 36.4 BP 138/86 Blood Pressure Location Rt brachial Position Sitting Pulse 61 Pulse Source Pulse Oximeter Temp 98.3 F Temp Source Oral Pulse Oximetry (%) 94 Oxygen Delivery Method Room Air Intake Visit Reasons: FollowUp Allergies acetaminophen [Percocet] Allergy (Unknown, Verified 02/12/24 10:06) Unknown amlodipine Allergy (Unknown, Verified 02/12/24 10:06) foot swelling codeine Allergy (Unknown, Verified 02/12/24 10:06) Unknown oxycodone [Percocet] Allergy (Unknown, Verified 02/12/24 10:06) Unknown atenolol Adverse Reaction (Mild, Verified 02/12/24 10:06) bradycardia Environmental Allergy (Unknown, Uncoded 09/08/22 11:19) Unknown Medication List - Last Reconciled 02/12/24 by Keena Scherer MD albuterol sulfate 90 mcg/actuation 2 puffs inhalation Q4H PRN aspirin (Adult Low Dose Aspirin) 81 mg PO DAILY cetirizine (All Day Allergy (cetirizine)) 10 mg PO DAILY PRN 90 days cholecalciferol (vitamin D3) 50 mcg PO DAILY cyanocobalamin (vitamin B-12) 1,000 mcg PO DAILY 90 days fluticasone propionate 50 mcg/actuation 1 spray intranasal DAILY 30 days hydrochlorothiazide 25 mg PO QAM irbesartan 300 mg PO DAILY omega-3 acid ethyl esters 2 caps PO BID 90 days omeprazole 20 mg PO DAILY 90 days simvastatin 20 mg PO DAILY 90 days Tobacco use date assessed: 02/12/24 Fall risk assessment: No Falls in past year Last assessed Fall Risk: 02/12/24 Dental Screening Dental Screen Date: 02/12/24 Did you have a dental visit in the last 12 months?: No Did you have a dental problem in the last 6 months where you did not have access to dental care?: No Was dental information given to patient?: No HPI FollowUp HPI Details Patient is a 68-year-old male came in today for his regular three-month follow-up appointment Patient has developed sinus pressure and ringing in his right ear He does have allergies and is taking cetirizine and Flonase nasal spray On examination his right ear has some fluid I am treating him with Augmentin for 5 days and Sudafed for 3 days Labs done in January reviewed Hypertension:? Patient patient is on irbesartan 300 mg and hydrochlorothiazide 25 mg, blood pressure is stable patient is tolerating medication no side effects Patient is on omeprazole for dyspepsia.? Symptoms controlled Impaired fasting sugar: Diet-controlled BMI is elevated, need to lose weight Back pain management through [facility] Follow-up 3 months [facility] Medical History B12 deficiency Obesity Environmental allergies Chronic GERD Asthma Hypertension, essential Lipid disorder Surgical History History of appendectomy Family History Father History of open heart surgery Kidney stone HTN (hypertension) Mother HTN (hypertension) Rheumatoid arthritis Maternal Grandfather No problems noted. Maternal Grandmother No problems noted. Paternal Grandfather Diabetes mellitus Stroke Maternal Grandmother No problems noted. Sister No problems noted. Daughter No problems noted. Brother No problems noted. Brother No problems noted. Brother No problems noted. Brother No problems noted. Brother No problems noted. Social History Housing: House Alcohol intake: never Patient Tobacco Use Status: Former Tobacco user Years Smoked: 3 years e-Cigarette/Vaping Use: Never Used service: No Current occupational status: retired Cognitive needs: No Hearing needs: No Vision needs: Yes Questionnaire PHQ-9 Over the last 2 weeks, how often have you been bothered by any of the following problems? 1. Little interest or pleasure in doing things: not at all 2. Feeling down, depressed, or hopeless: not at all 3. Trouble falling or staying asleep, or sleeping too much: not at all 4. Feeling tired or having little energy: not at all 5. Poor appetite or overeating: not at all 6. Feeling bad about yourself - or that you are a failure or have let yourself or your family down: not at all 7. Trouble concentrating on things, such as reading the newspaper or watching television: not at all 8. Moving or speaking so slowly that other people could have noticed. Or the opposite - being so fidgety or restless that you have been moving around a lot more than usual: not at all 9. Thoughts that you would be better off or of hurting yourself in some way: not at all Total score: 0 Depression Screening Interpretation: Negative Depression Screening Done: Yes 47616 - PHQ-9 Billing: Yes Source: Developed by Drs. Tim Howard, Hilary Landis, Nacho Putnam and colleagues, with an educational nicole from [employer]. Thrive Questionnaire Date Thrive assessed: 02/12/24 I am a: Patient What is your living situation today?: I have a steady place to live Within the past 12 months, did the food you bought not last and you didn't have the money to get more?: I choose not to answer this question Within the past 12 months, did you worry whether your food would run out before you got money to buy more?: I choose not to answer this question Do you have trouble paying for medicines?: No Do you have trouble getting transportation to medical appointments?: No Do you have trouble paying your heating and electricity bill?: Yes Do you have trouble taking care of your child, family member or friend?: No Do you have trouble with day-to-day activities such as bathing, preparing meals, shopping, managing finances, etc.?: No Are you currently unemployed and looking for a job?: No Are you interested in more education?: No Please select the resources that you would like help with: None Currently or been in a relationship where the following occur: I choose not to answer THRIVE Score: 1 AUDIT C Alcohol Use Questionnaire (AUDIT-C) 1. How often do you have a drink containing alcohol?: Never 3. How often do you have six or more drinks on one occasion?: Never Total Score: 0 Score Reviewed/Action Taken: Yes BENITA-7 AMB Questionnaire BENITA-7 Date BENITA - 7 assessed: 09/20/23 Source: Developed by Drs. Tim Howard, Hilary Landis, Nacho Putnam and colleagues, with an educational nicole from [employer]. Review of Systems Const Denies chills and Denies fever(s) ENT Denies epistaxis Card Denies chest pain Resp Denies chest congestion, Denies cough and Denies hemoptysis GI Denies diarrhea and Denies nausea Skin/Breast Denies rash Neuro Reports no additional complaints Psych Reports no additional complaints Endo Reports no additional complaints Physical exam (Primary Care) Vital Signs: Last Vital Signs Temp 98.3 F 02/12/24 10:06 Pulse 61 02/12/24 10:06 BP 138/86 02/12/24 10:06 Pulse Ox 94 02/12/24 10:06 Oxygen Delivery Method Room Air 02/12/24 10:06 BMI result Body Mass Index 36.4 Tobacco/Smoking Status: Tobacco use Status Tobacco use date assessed 02/12/24 02/12/24 10:11 Patient Tobacco Use Status Former Tobacco user 02/12/24 10:11 e-Cigarette/Vaping Use Never Used 02/12/24 10:11 PHQ-9: PHQ-9 Score PHQ-9: Total score 0 02/12/24 10:23 Depression Screening Interpretation: Negative Thrive Assessment: Date of Thrive Assessment Date Thrive assessed 02/12/24 02/12/24 10:11 Currently or been in a relationship where the following occur: I choose not to answer Const General: cooperative, comfortable and no acute distress Orientation/consciousness: patient oriented x3 HENMT Other: Right ear with erythema and fluid, no pain with pressure over sinuses Head: Yes normocephalic Eyes General: appearance normal, both eyes and all related structures Neck Neck: Yes supple Resp Effort & Inspection: normal respiratory effort, no cough and no stridor Cardio Rhythm: regular rhythm Heart sounds: S1 normal heart sound present and S2 normal heart sound present Skin General skin exam: turgor normal Neuro General: patient oriented x3, tone normal and moves all extremities Extrem Right lower extremity: no edema Left lower extremity: no edema Assessment and Plan Assessment & Plan (1) Acute sinusitis: Code(s): J01.90 - Acute sinusitis, unspecified Qualifiers: Recurrence: non-recurrent Sinusitis location: frontal Qualified Code(s): J01.10 - Acute frontal sinusitis, unspecified (2) Hypertension, essential: Code(s): I10 - Essential (primary) hypertension (3) Lipid disorder: Code(s): E78.9 - Disorder of lipoprotein metabolism, unspecified (4) Chronic GERD: Code(s): K21.9 - Gastro-esophageal reflux disease without esophagitis (5) Environmental allergies: Code(s): Z91.09 - Other allergy status, other than to drugs and biological substances (6) Elevated fasting blood sugar: Code(s): R73.01 - Impaired fasting glucose (7) LFT elevation: Code(s): R79.89 - Other specified abnormal findings of blood chemistry (8) Chronic lower back pain: Code(s): M54.50 - Low back pain, unspecified; G89.29 - Other chronic pain Qualifiers: Back pain laterality: bilateral Sciatica presence: without sciatica Qualified Code(s): M54.50 - Low back pain, unspecified; G89.29 - Other chronic pain (9) Obesity due to excess calories: Code(s): E66.09 - Other obesity due to excess calories Qualifiers: Body mass index: BMI 35.0-35.9 Obesity classification: adult class 2 (BMI 35 - 39.9) Serious obesity comorbidity presence: with serious comorbidity Qualified Code(s): E66.01 - Morbid (severe) obesity due to excess calories; Z68.35 - Body mass index [BMI] 35.0-35.9, adult Plan Patient is a 68-year-old male came in today for his regular three-month follow-up appointment Patient has developed sinus pressure and ringing in his right ear He does have allergies and is taking cetirizine and Flonase nasal spray On examination his right ear has some fluid I am treating him with Augmentin for 5 days and Sudafed for 3 days Labs done in January Hypertension:? Patient patient is on irbesartan 300 mg and hydrochlorothiazide 25 mg, blood pressure is stable patient is tolerating medication no side effects Patient is on omeprazole for dyspepsia.? Symptoms controlled Impaired fasting sugar: Diet-controlled BMI is elevated, need to lose weight Back pain management through [facility] Follow-up 3 months Medications: New pseudoephedrine HCl ER (Sudafed 12 Hour) 120 mg PO .q am 3 tabs 0RF nasal congestion 3 days amoxicillin-pot clavulanate 875-125 mg 1 tab PO BID 10 tabs 0RF 5 days Coding Level of Care Code Est Pt Level 4 (08067) Complex EM visit Add On G2211 Diagnoses Acute non-recurrent frontal sinusitis J01.10 Recurrence: non-recurrent Sinusitis location: frontal Hypertension, essential I10 Lipid disorder E78.9 Chronic GERD K21.9 Environmental allergies Z91.09 Elevated fasting blood sugar R73.01 LFT elevation R79.89 Chronic bilateral low back pain without sciatica M54.50; G89.29 Back pain laterality: bilateral Sciatica presence: without sciatica Class 2 severe obesity due to excess calories with serious comorbidity and body mass index (BMI) of 35.0 to 35.9 in adult E66.01; Z68.35 Body mass index: BMI 35.0-35.9 Obesity classification: adult class 2 (BMI 35 - 39.9) Serious obesity comorbidity presence: with serious comorbidity
== END 2024-02-12 10:32 | disposition home or self-care (01) ==
PROVIDERS: PCP Internal Medicine; Visit Provider Internal Medicine
DX: J01.10 Acute frontal sinusitis, unspecified (principal); E66.01 Morbid (severe) obesity due to excess calories; Z68.36 Body mass index [BMI] 36.0-36.9, adult; I10 Essential (primary) hypertension; E78.9 Disorder of lipoprotein metabolism, unspecified; K21.9 Gastro-esophageal reflux disease without esophagitis; Z91.09 Other allergy status, other than to drugs and biological substances; R73.01 Impaired fasting glucose; R79.89 Other specified abnormal findings of blood chemistry; M54.50 Low back pain, unspecified; G89.29 Other chronic pain
CPT/HCPCS: 99214; G2211

== ENCOUNTER 2024-02-28 09:33 | Outpatient (REF) | payer MEDICARE, SELFPAY ==
[2024-02-28 14:11] LABS: Influenza A PCR NEGATIVE (Negative); Influenza B PCR NEGATIVE (Negative); Resp Syncy Virus RNA Qual PCR NEGATIVE (Negative); SARS COV2 PCR INHOUSE NEGATIVE (Negative)
== END 2024-02-28 09:34 | disposition home or self-care (01) ==
LOC: HO.LNP 09:33
PROVIDERS: PCP Internal Medicine; Visit Provider Internal Medicine
DX: R09.89 Other specified symptoms and signs involving the circulatory and respiratory systems (principal); B34.9 Viral infection, unspecified
CPT/HCPCS: 0241U; 99212

== ENCOUNTER 2024-02-28 09:33 | Outpatient (AMB) | payer MEDICARE, SELFPAY ==
[2024-02-28 09:35] VITALS: BP 138/90; PULSE 71; TEMP 37.1; O2SAT 95; BMI 36.4
--- NOTE | 2024-02-28 09:35 | MHC.PC.OV ---
Vital Signs 02/28/24 09:35 Height 5 ft 8 in Weight 239 lb 6 oz BMI 36.4 BP 138/90 H Blood Pressure Location Lt brachial Position Sitting Pulse 71 Pulse Source Pulse Oximeter Temp 98.8 F Temp Source Oral Pulse Oximetry (%) 95 Oxygen Delivery Method Room Air Intake Visit Reasons: asthma Allergies acetaminophen [Percocet] Allergy (Unknown, Verified 02/28/24 09:41) Unknown amlodipine Allergy (Unknown, Verified 02/28/24 09:41) foot swelling codeine Allergy (Unknown, Verified 02/28/24 09:41) Unknown oxycodone [Percocet] Allergy (Unknown, Verified 02/28/24 09:41) Unknown atenolol Adverse Reaction (Mild, Verified 02/28/24 09:41) bradycardia Environmental Allergy (Unknown, Uncoded 09/08/22 11:19) Unknown Medication List - Last Reconciled 02/28/24 by Keena Scherer MD albuterol sulfate 90 mcg/actuation 2 puffs inhalation Q4H PRN aspirin (Adult Low Dose Aspirin) 81 mg PO DAILY cetirizine (All Day Allergy (cetirizine)) 10 mg PO DAILY PRN 90 days cholecalciferol (vitamin D3) 50 mcg PO DAILY cyanocobalamin (vitamin B-12) 1,000 mcg PO DAILY 90 days fluticasone propionate 50 mcg/actuation 1 spray intranasal DAILY 30 days hydrochlorothiazide 25 mg PO QAM irbesartan 300 mg PO DAILY omega-3 acid ethyl esters 2 caps PO BID 90 days omeprazole 20 mg PO DAILY 90 days pseudoephedrine HCl ER (Sudafed 12 Hour) 120 mg PO .q am 3 days simvastatin 20 mg PO DAILY 90 days Tobacco use date assessed: 02/28/24 Fall risk assessment: No Falls in past year Last assessed Fall Risk: 02/28/24 Dental Screening Dental Screen Date: 02/28/24 Did you have a dental visit in the last 12 months?: Yes Did you have a dental problem in the last 6 months where you did not have access to dental care?: No Was dental information given to patient?: Patient has dentist HPI asthma HPI Details Patient is 68-year-old gentleman came in today to be evaluated for possible flu Patient has been feeling sick since past Saturday With headache body aches and cough which is mostly dry but sometimes yellow phlegm comes up There is no nausea no vomiting no chest pain no shortness a breath On examination his lungs are clear I have taken COVID RSV flu sample Patient was instructed to take [id number] Mucinex to thin out the phlegm He may take ibuprofen as needed for body aches and pains I have sent dextromethorphan guaifenesin for his cough, patient was instructed to pick it up from pharmacy if insurance does not cover then it is [id number] Further management after the nasal swab report [facility] Medical History B12 deficiency Obesity Environmental allergies Chronic GERD Asthma Hypertension, essential Lipid disorder Surgical History History of appendectomy Family History Father History of open heart surgery Kidney stone HTN (hypertension) Mother HTN (hypertension) Rheumatoid arthritis Maternal Grandfather No problems noted. Maternal Grandmother No problems noted. Paternal Grandfather Diabetes mellitus Stroke Maternal Grandmother No problems noted. Sister No problems noted. Daughter No problems noted. Brother No problems noted. Brother No problems noted. Brother No problems noted. Brother No problems noted. Brother No problems noted. Social History Housing: House Alcohol intake: never Patient Tobacco Use Status: Former Tobacco user Years Smoked: 3 years e-Cigarette/Vaping Use: Never Used service: No Current occupational status: retired Cognitive needs: No Hearing needs: No Vision needs: Yes Questionnaire Thrive Questionnaire Date Thrive assessed: 02/28/24 I am a: Patient What is your living situation today?: I have a steady place to live Within the past 12 months, did the food you bought not last and you didn't have the money to get more?: I choose not to answer this question Within the past 12 months, did you worry whether your food would run out before you got money to buy more?: I choose not to answer this question Do you have trouble paying for medicines?: No Do you have trouble getting transportation to medical appointments?: No Do you have trouble paying your heating and electricity bill?: Yes Do you have trouble taking care of your child, family member or friend?: No Do you have trouble with day-to-day activities such as bathing, preparing meals, shopping, managing finances, etc.?: No Are you currently unemployed and looking for a job?: No Are you interested in more education?: No Please select the resources that you would like help with: None Currently or been in a relationship where the following occur: I choose not to answer THRIVE Score: 1 AUDIT C Alcohol Use Questionnaire (AUDIT-C) 1. How often do you have a drink containing alcohol?: Never 3. How often do you have six or more drinks on one occasion?: Never Total Score: 0 Score Reviewed/Action Taken: Yes BENITA-7 AMB Questionnaire BENITA-7 Date BENITA - 7 assessed: 09/20/23 Source: Developed by Drs. Tim Howard, Hilary Landis, Nacho Putnam and colleagues, with an educational nicole from [employer]. Review of Systems Const All systems reviewed & are unremarkable except as noted in HPI and below Physical exam (Primary Care) Vital Signs: Last Vital Signs Temp 98.8 F 02/28/24 09:35 Pulse 71 02/28/24 09:35 BP 138/90 H 02/28/24 09:35 Pulse Ox 95 02/28/24 09:35 Oxygen Delivery Method Room Air 02/28/24 09:35 BMI result Body Mass Index 36.4 Tobacco/Smoking Status: Tobacco use Status Tobacco use date assessed 02/28/24 02/28/24 09:43 Patient Tobacco Use Status Former Tobacco user 02/28/24 09:35 e-Cigarette/Vaping Use Never Used 02/28/24 09:35 Thrive Assessment: Date of Thrive Assessment Date Thrive assessed 02/28/24 02/28/24 09:43 Currently or been in a relationship where the following occur: I choose not to answer Const General: no acute distress HENMT Ears: mastoids normal General nose exam: Normal external nose present Throat: Yes posterior oropharynx abnormal Neck Neck: Yes no lymphadenopathy Resp Effort & Inspection: normal respiratory effort Auscultation: clear to auscultation bilaterally Psych Mental Status: mental status grossly normal Assessment and Plan Assessment & Plan (1) Viral syndrome: Code(s): B34.9 - Viral infection, unspecified Plan Patient is 68-year-old gentleman came in today to be evaluated for possible flu Patient has been feeling sick since past Saturday With headache body aches and cough which is mostly dry but sometimes yellow phlegm comes up There is no nausea no vomiting no chest pain no shortness a breath On examination his lungs are clear I have taken COVID RSV flu sample Patient was instructed to take [id number] Mucinex to thin out the phlegm He may take ibuprofen as needed for body aches and pains I have sent dextromethorphan guaifenesin for his cough, patient was instructed to pick it up from pharmacy if insurance does not cover then it is [id number] Further management after the nasal swab report Orders: Orders SARS-CoV2/FLU/RSV Today R09.89 - Other specified symptoms and signs involving the circulatory and respiratory systems Medications: New dextromethorphan-guaifenesin 5-100 mg/5 mL (Robitussin Cough-Chest Congestion DM) 10 mL PO Q8H PRN 1,000 mL 0RF cough 10 days Discontinued pseudoephedrine HCl ER (Sudafed 12 Hour) Discontinued Reason: No Longer Medically Relevant 120 mg PO .q am 3 days 3 tabs 0RF nasal congestion Coding Level of Care Code Est Pt Level 3 (50293) Diagnoses Viral syndrome B34.9
== END 2024-02-28 13:20 | disposition home or self-care (01) ==
PROVIDERS: PCP Internal Medicine; Visit Provider Internal Medicine
DX: B34.9 Viral infection, unspecified (principal)

== ENCOUNTER 2024-05-12 11:07 | Outpatient (AMB) | payer MEDICARE, SELFPAY ==
[2024-05-12 11:15] VITALS: BP 122/76; PULSE 65; O2SAT 96; BMI 36.5
--- NOTE | 2024-05-12 11:15 | MHC.PC.OV ---
Vital Signs 05/12/24 11:15 Height 5 ft 8 in Weight 240 lb 2 oz BMI 36.5 BP 122/76 Blood Pressure Location Lt brachial Position Sitting Pulse 65 Pulse Source Pulse Oximeter Pulse Oximetry (%) 96 Oxygen Delivery Method Room Air Intake Visit Reasons: 3 month follow up Allergies acetaminophen [Percocet] Allergy (Unknown, Verified 02/28/24 09:41) Unknown amlodipine Allergy (Unknown, Verified 02/28/24 09:41) foot swelling codeine Allergy (Unknown, Verified 02/28/24 09:41) Unknown oxycodone [Percocet] Allergy (Unknown, Verified 02/28/24 09:41) Unknown atenolol Adverse Reaction (Mild, Verified 02/28/24 09:41) bradycardia Environmental Allergy (Unknown, Uncoded 09/08/22 11:19) Unknown Medication List - Last Reconciled 05/12/24 by Keena Scherer MD albuterol sulfate 90 mcg/actuation 2 puffs inhalation Q4H PRN aspirin (Adult Low Dose Aspirin) 81 mg PO DAILY cetirizine (All Day Allergy (cetirizine)) 10 mg PO DAILY PRN 90 days cholecalciferol (vitamin D3) 50 mcg PO DAILY cyanocobalamin (vitamin B-12) 1,000 mcg PO DAILY 90 days dextromethorphan-guaifenesin 5-100 mg/5 mL (Robitussin Cough-Chest Congestion DM) 10 mL PO Q8H PRN 10 days fluticasone propionate 50 mcg/actuation 1 spray intranasal DAILY 30 days hydrochlorothiazide 25 mg PO QAM irbesartan 300 mg PO DAILY omega-3 acid ethyl esters 2 caps PO BID 90 days omeprazole 20 mg PO DAILY 90 days simvastatin 20 mg PO DAILY 90 days Tobacco use date assessed: 05/12/24 Fall risk assessment: No Falls in past year Last assessed Fall Risk: 05/12/24 Dental Screening Dental Screen Date: 05/12/24 Did you have a dental visit in the last 12 months?: Yes Did you have a dental problem in the last 6 months where you did not have access to dental care?: No Was dental information given to patient?: Patient has dentist HPI 3 month follow up HPI Details Assessment and Plan 69-year-old male with a history of essential hypertension, allergic rhinitis, hyperlipidemia, gastroesophageal reflux disease, and osteoarthritis presenting for a routine visit to follow-up on chronic conditions. The patient's vital signs are stable. Blood pressure and pulse readings are within normal limits. Laboratory results from January indicate no anemia, stable metabolic profile, normal kidney function, and stable liver enzymes. Cholesterol levels are satisfactory. The patient denies any acute complaints such as chest pain, shortness of breath, or swelling of the ankles. The current management plan including medication regimen seems effective in managing the chronic conditions. 1. Gastroesophageal Reflux Disease Omeprazole appears to be controlling symptoms effectively. Maintain current dosage and advise avoidance of trigger foods. 2. Essential Hypertension Continue monitoring blood pressure at home and maintain current medication regimen with hydrochlorothiazide and irbesartan, considering good control as evidenced by current measurements (122/76 mmHg). 3. Osteoarthritis No acute exacerbation noted. Emphasize the importance of regular exercise and weight management. 4. Hyperlipidemia The patient is taking simvastatin with good cholesterol control as per recent lab results. Continue with current treatment and lifestyle recommendations. 5. Allergic Rhinitis Patient is using cetirizine as an antihistamine and fluticasone nasal spray for symptom relief, which are effective in managing symptoms. Continue current therapy. Diagnostic results - Labs: - Complete Blood Count: Normal, no anemia - Metabolic Profile: Normal - Electrolytes: Normal - Kidney Function: Normal - Liver Enzymes: Stable - Cholesterol Levels: Within target range Problem List - Essential Hypertension - Allergic Rhinitis - Hyperlipidemia - Gastroesophageal Reflux Disease - Osteoarthritis - obesity Health Maintenance - Routine lab orders placed for next visit prior to breakfast. - Emphasized regular exercise and maintaining a healthy diet. Patient Instructions - Continue current medication regimen as prescribed. - Monitor blood pressure at home regularly. - Maintain a healthy diet and regular exercise. - Follow up with lab tests as ordered before next appointment. - Attend scheduled physical exam on September 25 at 1:30 PM. [facility] Medical History B12 deficiency Obesity Environmental allergies Chronic GERD Asthma Hypertension, essential Lipid disorder Surgical History History of appendectomy Family History Father History of open heart surgery Kidney stone HTN (hypertension) Mother HTN (hypertension) Rheumatoid arthritis Maternal Grandfather No problems noted. Maternal Grandmother No problems noted. Paternal Grandfather Diabetes mellitus Stroke Maternal Grandmother No problems noted. Sister No problems noted. Daughter No problems noted. Brother No problems noted. Brother No problems noted. Brother No problems noted. Brother No problems noted. Brother No problems noted. Social History Housing: House Alcohol intake: never Patient Tobacco Use Status: Former Tobacco user Years Smoked: 3 years e-Cigarette/Vaping Use: Never Used service: No Current occupational status: retired Cognitive needs: No Hearing needs: No Vision needs: Yes Questionnaire Thrive Questionnaire Date Thrive assessed: 05/12/24 I am a: Patient What is your living situation today?: I have a steady place to live Within the past 12 months, did the food you bought not last and you didn't have the money to get more?: I choose not to answer this question Within the past 12 months, did you worry whether your food would run out before you got money to buy more?: I choose not to answer this question Do you have trouble paying for medicines?: No Do you have trouble getting transportation to medical appointments?: No Do you have trouble paying your heating and electricity bill?: Yes Do you have trouble taking care of your child, family member or friend?: No Do you have trouble with day-to-day activities such as bathing, preparing meals, shopping, managing finances, etc.?: No Are you currently unemployed and looking for a job?: No Are you interested in more education?: No Please select the resources that you would like help with: None Currently or been in a relationship where the following occur: I choose not to answer THRIVE Score: 1 AUDIT C Alcohol Use Questionnaire (AUDIT-C) 1. How often do you have a drink containing alcohol?: Never 3. How often do you have six or more drinks on one occasion?: Never Total Score: 0 Score Reviewed/Action Taken: Yes BENITA-7 AMB Questionnaire BENITA-7 Date BENITA - 7 assessed: 09/20/23 Source: Developed by Drs. Tim Howard, Hilary Landis, Nacho Putnam and colleagues, with an educational nicole from [employer]. Review of Systems Const Denies chills and Denies fever(s) ENT Denies epistaxis and Denies nasal discharge Card Denies chest pain Resp Denies chest congestion, Denies cough and Denies hemoptysis GI Denies diarrhea and Denies nausea Skin/Breast Denies rash Neuro Reports no additional complaints Psych Reports no additional complaints Endo Reports no additional complaints Physical exam (Primary Care) Vital Signs: Last Vital Signs Pulse 65 05/12/24 11:15 BP 122/76 05/12/24 11:15 Pulse Ox 96 05/12/24 11:15 Oxygen Delivery Method Room Air 05/12/24 11:15 BMI result Body Mass Index 36.5 Tobacco/Smoking Status: Tobacco use Status Tobacco use date assessed 05/12/24 05/12/24 11:18 Patient Tobacco Use Status Former Tobacco user 05/12/24 11:18 e-Cigarette/Vaping Use Never Used 05/12/24 11:18 Thrive Assessment: Date of Thrive Assessment Date Thrive assessed 05/12/24 05/12/24 11:18 Currently or been in a relationship where the following occur: I choose not to answer Const General: cooperative, comfortable and no acute distress Orientation/consciousness: patient oriented x3 HENMT Head: Yes normocephalic Eyes General: appearance normal, both eyes and all related structures Neck Neck: Yes supple Resp Effort & Inspection: normal respiratory effort, no cough and no stridor Cardio Rhythm: regular rhythm Heart sounds: S1 normal heart sound present and S2 normal heart sound present Skin General skin exam: turgor normal Neuro General: patient oriented x3, tone normal and moves all extremities Extrem Right lower extremity: no edema Left lower extremity: no edema Coding Level of Care Code Est Pt Level 4 (62473) Complex EM visit Add On G2211 Diagnoses Hypertension, essential I10 Lipid disorder E78.9 Chronic GERD K21.9 Environmental allergies Z91.09 Elevated fasting blood sugar R73.01 Class 2 severe obesity due to excess calories with serious comorbidity and body mass index (BMI) of 35.0 to 35.9 in adult E66.01; Z68.35 Obesity classification: adult class 2 (BMI 35 - 39.9) Serious obesity comorbidity presence: with serious comorbidity Body mass index: BMI 35.0-35.9 LFT elevation R79.89 Assessment & Plan Assessment & Plan (1) Hypertension, essential: Code(s): I10 - Essential (primary) hypertension Category: Medical (2) Lipid disorder: Code(s): E78.9 - Disorder of lipoprotein metabolism, unspecified Category: Medical (3) Chronic GERD: Code(s): K21.9 - Gastro-esophageal reflux disease without esophagitis Category: Medical (4) Environmental allergies: Code(s): Z91.09 - Other allergy status, other than to drugs and biological substances Category: Medical (5) Elevated fasting blood sugar: Code(s): R73.01 - Impaired fasting glucose Category: Medical (6) Obesity due to excess calories: Code(s): E66.09 - Other obesity due to excess calories Category: Medical Qualifiers: Obesity classification: adult class 2 (BMI 35 - 39.9) Serious obesity comorbidity presence: with serious comorbidity Body mass index: BMI 35.0-35.9 Qualified Code(s): E66.01 - Morbid (severe) obesity due to excess calories; Z68.35 - Body mass index [BMI] 35.0-35.9, adult (7) LFT elevation: Code(s): R79.89 - Other specified abnormal findings of blood chemistry Category: Medical Plan Assessment and Plan 69-year-old male with a history of essential hypertension, allergic rhinitis, hyperlipidemia, gastroesophageal reflux disease, and osteoarthritis presenting for a routine visit to follow-up on chronic conditions. The patient's vital signs are stable. Blood pressure and pulse readings are within normal limits. Laboratory results from January indicate no anemia, stable metabolic profile, normal kidney function, and stable liver enzymes. Cholesterol levels are satisfactory. The patient denies any acute complaints such as chest pain, shortness of breath, or swelling of the ankles. The current management plan including medication regimen seems effective in managing the chronic conditions. 1. Gastroesophageal Reflux Disease Omeprazole appears to be controlling symptoms effectively. Maintain current dosage and advise avoidance of trigger foods. 2. Essential Hypertension Continue monitoring blood pressure at home and maintain current medication regimen with hydrochlorothiazide and irbesartan, considering good control as evidenced by current measurements (122/76 mmHg). 3. Osteoarthritis No acute exacerbation noted. Emphasize the importance of regular exercise and weight management. 4. Hyperlipidemia The patient is taking simvastatin with good cholesterol control as per recent lab results. Continue with current treatment and lifestyle recommendations. 5. Allergic Rhinitis Patient is using cetirizine as an antihistamine and fluticasone nasal spray for symptom relief, which are effective in managing symptoms. Continue current therapy. Diagnostic results - Labs: - Complete Blood Count: Normal, no anemia - Metabolic Profile: Normal - Electrolytes: Normal - Kidney Function: Normal - Liver Enzymes: Stable - Cholesterol Levels: Within target range Problem List - Essential Hypertension - Allergic Rhinitis - Hyperlipidemia - Gastroesophageal Reflux Disease - Osteoarthritis - obesity Health Maintenance - Routine lab orders placed for next visit prior to breakfast. - Emphasized regular exercise and maintaining a healthy diet. Patient Instructions - Continue current medication regimen as prescribed. - Monitor blood pressure at home regularly. - Maintain a healthy diet and regular exercise. - Follow up with lab tests as ordered before next appointment. - Attend scheduled physical exam on September 25 at 1:30 PM. Orders: Orders Complete Blood Count Auto Diff 3 Months E66.01 - Morbid (severe) obesity due to excess calories, E78.9 - Disorder of lipoprotein metabolism, unspecified, I10 - Essential (primary) hypertension, K21.9 - Gastro-esophageal reflux disease without esophagitis, R73.01 - Impaired fasting glucose, R79.89 - Other specified abnormal findings of blood chemistry, Z68.35 - Body mass index [BMI] 35.0-35.9, adult, Z91.09 - Other allergy status, other than to drugs and biological substances Hemoglobin A1c 3 Months E66.01 - Morbid (severe) obesity due to excess calories, E78.9 - Disorder of lipoprotein metabolism, unspecified, I10 - Essential (primary) hypertension, K21.9 - Gastro-esophageal reflux disease without esophagitis, R73.01 - Impaired fasting glucose, R79.89 - Other specified abnormal findings of blood chemistry, Z68.35 - Body mass index [BMI] 35.0-35.9, adult, Z91.09 - Other allergy status, other than to drugs and biological substances Comprehensive [place]. Panel Fast 3 Months E66.01 - Morbid (severe) obesity due to excess calories, E78.9 - Disorder of lipoprotein metabolism, unspecified, I10 - Essential (primary) hypertension, K21.9 - Gastro-esophageal reflux disease without esophagitis, R73.01 - Impaired fasting glucose, R79.89 - Other specified abnormal findings of blood chemistry, Z68.35 - Body mass index [BMI] 35.0-35.9, adult, Z91.09 - Other allergy status, other than to drugs and biological substances Lipid Panel 3 Months E66.01 - Morbid (severe) obesity due to excess calories, E78.9 - Disorder of lipoprotein metabolism, unspecified, I10 - Essential (primary) hypertension, K21.9 - Gastro-esophageal reflux disease without esophagitis, R73.01 - Impaired fasting glucose, R79.89 - Other specified abnormal findings of blood chemistry, Z68.35 - Body mass index [BMI] 35.0-35.9, adult, Z91.09 - Other allergy status, other than to drugs and biological substances
== END 2024-05-12 13:37 | disposition home or self-care (01) ==
PROVIDERS: PCP Internal Medicine; Visit Provider Internal Medicine
DX: I10 Essential (primary) hypertension (principal); E78.9 Disorder of lipoprotein metabolism, unspecified; E66.01 Morbid (severe) obesity due to excess calories; Z68.35 Body mass index [BMI] 35.0-35.9, adult; K21.9 Gastro-esophageal reflux disease without esophagitis; Z91.09 Other allergy status, other than to drugs and biological substances; R73.01 Impaired fasting glucose

== ENCOUNTER → 2024-05-12 11:07 | Outpatient (BNVA) | payer MEDICARE, SELFPAY | PROVIDERS: PCP Internal Medicine; Visit Provider Internal Medicine | DX: I10 Essential (primary) hypertension (principal); E78.9 Disorder of lipoprotein metabolism, unspecified; K21.9 Gastro-esophageal reflux disease without esophagitis; R73.01 Impaired fasting glucose; E66.01 Morbid (severe) obesity due to excess calories; Z68.35 Body mass index [BMI] 35.0-35.9, adult; R79.89 Other specified abnormal findings of blood chemistry; Z91.09 Other allergy status, other than to drugs and biological substances | CPT/HCPCS: 99212 ==

== ENCOUNTER 2024-09-10 10:25 | Outpatient (REF) | payer MEDICARE, SELFPAY ==
--- OUTSIDE RECORDS SUMMARY | 2024-09-10 12:22 | XMS_ITS | Clinical Summary ---
Author Organization [facility] Address [address] [place] [address] Care Team Providers Care Client Sales And Service Officer Name Role Phone Unavailable Primary Care Provider Unavailabl e Source Comments PLEASE NOTE, if this patient is a minor, it may be UNLAWFUL to discuss sensitive information that is contained in these records (such as FAMILY PLANNING, MENTAL HEALTH or SUBSTANCE ABUSE) with the minor patient's parent or other person without the patient's specific authorization.[facility] Allergies Active Allergy Reactions Criticality Noted Date Comments Oxycodone-Acetaminophen 10/14/2014 Anxiety/ insomnia Penicillins Rash 10/14/2014 Had a rash as a child, then reports did take for tooth infection and did well Medications ibuprofen (ADVIL,MOTRIN) 800 mg tablet 0 07/20/19 15 Active lisinopril (PRINIVIL,ZESTRIL ) 40 mg tabletIndications :Essential hypertension Take 1 Tab by mouth once daily. 90 Tab 3 10/15/19 15 Active simvastatin (ZOCOR) 20 mg tabletIndications :hypertriglycerid emia,mixed hyperlipidemia Take 1 Tab by mouth nightly at bedtime. Indications: Hypertriglyceridemi a, Mixed Hyperlipidemia 90 Tab 3 10/15/19 15 Active omeprazole (PRILOSEC) [address] capsuleIndication s:gastroesophagea l reflux disease Take 1 Cap by mouth every morning before breakfast. Do not crush or chew. Indications: Gastroesophageal Reflux 90 Cap 3 10/15/19 15 Active calcitRIOL (ROCALTROL) 0.5 mcg capsule 01/15/20 15 Active omega-3 acid ethyl esters (LOVAZA) 1 gram capsule Take 2 Caps by mouth 2 (two) times daily. Swallow whole. 120 Cap 3 04/21/20 15 Active cetirizine (ZYRTEC) 10 mg tablet Take 1 Tab by mouth as needed for allergies. 30 Tab 1 05/19/20 15 Active albuterol sulfate hfa (PROAIR HFA) 90 mcg/actuation inhalerIndication s:Allergy, initial encounter Inhale 2 Puffs into the lungs every 4 (four) hours as needed for wheezing. 18 g 5 05/26/20 15 Active levocetirizine (XYZAL) 5 mg tabletIndications :Allergy, initial encounter Take 0.5 Tabs by mouth every evening. 90 Tab 0 05/26/20 15 Active aspirin [address] tablet Take 81 mg by mouth once daily. Active ibuprofen 600 mg tablet Take 1 Tab by mouth 4 (four) times daily as needed for pain 20 Tab 05/19/20 19 Active Active Problems Problem Noted Date Diagnosed Date Hepatitis A antibody positive 10/14/2014 Overview (10/14/2014): Rest neg Vitamin D deficiency disease 10/14/2014 Overview (10/14/2014): Low at 20 vit d orderd HTN (hypertension) Overview (10/16/2014): Vital Signs 10/14/2014 BP Systolic 160 BP Diastolic 80 Lisinopril 40 for this Dyslipidemia, goal LDL below 100/ at goal Overview (10/16/2014): Lab Results Component Value Date TRIGLYC 236* 10/14/2014 CHOL 142 10/14/2014 HDL 33* 10/14/2014 LDL 62 10/14/2014 zocor 20 for this; added lovaza Lab Results Component Value Date PROTEIN 7.1 10/14/2014 AST 29 10/14/2014 ALT 28 10/14/2014 ALKPHOS 81 10/14/2014 BILI 1.3 10/14/2014 Tubular adenoma of colon/ repeat EGD 2018 Overview (03/09/2015): Omeprazole 20 Saw GI 02/28/15: saw Dr. Alen Sood, #[id number]: had EGD: tx for H pylori advise repeat EGD in 3 years, DUE 2018 based on tubular adenomas in the cecum Bx: gastric antal and fundic body mucosa with chronic, mildly active gastritis, c/w h pylori 2. Stomach pylori fold bx: same as above 3. Gastric nodules bx: same above 4. Cecum polypetomies: tubular adenomas 5.rectum polypetomies hyperplaastic polyp Asthma ([facility]) Overview (10/16/2014): With allergy only. No meds Right shoulder pain Overview (02/24/2015): PT hurt with sleeping x 5-6 yr. rotator cuff. Went to [facility], had injection, they think surgery would be best on hold H/O colonoscopy Overview (05/26/2015): EGD colonoscopy report rec 02/09/15; done 01/25/15: EGD impression: normal esophagus. Normal duodenum. Nodularity in fundus ( bx done); + enlarged gastric fold, (bx done)+ erythema, (bx done; Colonoscopy impression: + polyp 3-4mm in cecum ( bx taken), + mild divertic whole colon. + polyp 4-5mm in rectum ( poypectomy/bx done), await PATH PLAN:repeat 3-5 years based on path results ([id number]) had normal at [facility], at 50, due again. Neg FHX for colon CA. Neg for blood guiac neg x 3 10/18/14 LBP (low back pain) Overview (10/14/2014): rad down left leg. no BB prob. no fever. Ne eval for this, motrin relieves Allergy, unspecified not elsewhere classified Overview (10/14/2014): seasonal Immunizations Immunization Administration Dates Next Due Hep B, Adult/Adol (ENERGIX/RECOMBIVAX) 5,02/24/2015 INFLUENZA, SEASONAL, INJECTABLE 02/24/2015 TDAP 05/26/2015 Zoster, Live Vaccine (Zostavax) 02/24/2015 Family History Medical History Relation Name Comments Asthma Brother 1 Depression Brother 1 High Cholesterol Brother 1 Depression Brother 2 High Cholesterol Brother 2 Depression Brother 3 High Cholesterol Brother 3 High Cholesterol Brother 4 Heart Problems Father 86 Arthritis Mother 84 Depression Sister well Relation Name Status Comments Brother 1 Alive Brother 2 Alive Brother 3 Alive Brother 4 Alive Father 86 Alive Mother 84 Alive Paternal Grandfather mi Paternal Grandmother abigail Sister well Alive Social History Tobacco Use Types Packs/Day Years Used Date Smoking Tobacco: Former Cigarettes Q uit: 10/14/2010 Alcohol Use Standard Drinks/Week Comments Yes 0 (1 standard drink = 0.6 oz pur e alcohol) rare Social Connections Answer Date Recorded Social Connections and Isolation 0 01/23/2021 Financial Resource Strain Answer Date R ecorded Financial Resource Strain 0 2020 Stress Answer Date Recorded Stress 0 01/23/2021 Physical Activity Answer Date Recorded Physical Activity 0 01/23/2021 Food Insecurity Answer Date Recorded Food 0 01/23/2021 Transportation Needs Answer Date Record ed Transportation 0 01/23/2021 Housing Stability Answer Date Recorded Housing 0 01/23/2021 Safety and Environment Answer Date Sandeep rded Safety 0 01/23/2021 Utilities Answer Date Recorded Utilities 0 01/23/2021 Employment Answer Date Recorded Employment 0 01/23/2021 Sex and Gender Information Value Date Recorded Sex Assigned at Not on file Legal Sex Male 8:44 AM PDT Gender Identity Not on file Sexual Orientation Not on file Last Filed Vital Signs Vital Sign Reading Time Taken Comments Blood Pressure 132/86 05/26/2015 10:15 AM EST Pulse 80 05/26/2015 10:15 AM EST Temperature 37.1 ??C (98.7 ??F) 02/24/2015 1 0:07 AM EDT Respiratory Rate 19 05/26/2015 10:1 5 AM EST Oxygen Saturation - - Inhaled Oxygen Concentration - - Weight 101.1 kg (222 lb 14.4 oz) 2014 10:15 AM EST Height 172.7 cm (5' 8 ) 02/24/2015 10:0 7 AM EDT Body Mass Index 33.89 02/24/2015 10:07 AM EDT Plan of Treatment Not on file Insurance [employer] [facility] PLAN GENERIC - DENTAL
[2024-09-10 13:34] LABS: MANUAL DIFF FLAG NO
[2024-09-10 13:47] LABS: Basophils Percent Auto 0.4 % (0-2); Eosinophils Percent Auto 0.6 % (0-4); Hematocrit 44.5 % (42.0-52.0); Hemoglobin 15.8 g/dl (14.0-18.0); Imm Gran Abs Auto 0.04 X10*3/uL (0.00-0.03); Imm Gran Pct Auto 0.7 % (0.0-0.4); Lymphocytes Absolute Auto 1.6 X10*3/uL (1.2-4.9); Lymphocytes Percent Auto 30.5 % (20-40); Mean Corpuscular HGB Conc 35.5 g/dl (31.0-36.0); Mean Corpuscular Hemoglobin 29.8 pg (27.0-33.0); Mean Platelet Volume 9.1 fL (9.4-12.4); Monocytes Absolute Auto 0.5 X10*3/uL (0.1-1.2); Monocytes Percent Auto 9.9 % (2-11); Neutrophils Absolute Auto 3.1 x10*3/uL (2.0-8.3); Neutrophils Percent Auto 57.9 % (45-73); Platelet Count 243 X10*3/uL (160-400); Red Cell Distribution Width 13.4 % (11.0-16.0); White Blood Count 5.3 X10*3/uL (4.8-10.8)
[2024-09-10 13:57] LABS: Estimated Average Glucose 123 mg/dL; Hemoglobin A1C 173.8921 umol/L; Hemoglobin A1c % 5.9 % (<6.0); Total Hemoglobin (HGBA1C) 4210.6335 umol/L
[2024-09-10 14:06] LABS: Alanine Aminotransferase 35 U/L (0-40); Albumin Level 4.2 g/dL (3.5-5.0); Alkaline Phosphatase 76 U/L (39-117); Anion Gap 13 (12-20); Aspartate Amino Transferase 32 U/L (5-37); Blood Urea Nitrogen 20 mg/dL (9-16); Calcium 9.3 mg/dL (8.4-10.2); Carbon Dioxide 28 mmol/L (22-29); Chloride 104 mmol/L (96-108); Cholesterol 160 mg/dL (<200); Estimated Glomerular Filt Rate > 60; Glucose Fasting 117 mg/dL (60-99); HDL Cholesterol 35 mg/dL (>40); LDL Cholesterol Calculated 80 mg/dL (<100); Potassium 3.7 mmol/L (3.3-5.1); Sodium 141 mmol/L (135-145); Total Protein 7.3 g/dL (6.5-8.0); Triglycerides 226 mg/dL (<150)
== END 2024-09-10 10:26 | disposition home or self-care (01) ==
LOC: HO.HMGCLDS 10:25
PROVIDERS: PCP Internal Medicine; Visit Provider Internal Medicine
DX: R79.89 Other specified abnormal findings of blood chemistry (principal); E66.01 Morbid (severe) obesity due to excess calories; Z68.35 Body mass index [BMI] 35.0-35.9, adult; R73.01 Impaired fasting glucose; Z91.09 Other allergy status, other than to drugs and biological substances; K21.9 Gastro-esophageal reflux disease without esophagitis; I10 Essential (primary) hypertension; E78.9 Disorder of lipoprotein metabolism, unspecified
CPT/HCPCS: 36415; 80053; 80061; 83036; 85025

== ENCOUNTER 2024-09-22 14:00 | Outpatient (AMB) | payer MEDICARE, SELFPAY ==
[2024-09-22 14:10] VITALS: BP 126/90; PULSE 78; RESP 16; TEMP 36.8; O2SAT 97; BMI 38.2
--- NOTE | 2024-09-22 14:10 | A.OFFPC_ITS ---
Vital Signs 09/22/24 14:10 Height 5 ft 8 in Weight 251 lb BMI 38.2 BP 126/90 H Blood Pressure Location Rt brachial Position Sitting Respiration 16 Pulse 78 Pulse Source Pulse Oximeter Temp 98.3 F Temp Source Oral Pulse Oximetry (%) 97 Oxygen Delivery Method Room Air Intake Visit Reasons: Annual Physical Allergies acetaminophen [Percocet] Allergy (Unknown, Verified 09/22/24 14:11) Unknown amlodipine Allergy (Unknown, Verified 09/22/24 14:11) foot swelling codeine Allergy (Unknown, Verified 09/22/24 14:11) Unknown oxycodone [Percocet] Allergy (Unknown, Verified 09/22/24 14:11) Unknown atenolol Adverse Reaction (Mild, Verified 09/22/24 14:11) bradycardia Environmental Allergy (Unknown, Uncoded 09/22/24 14:11) Unknown Medication List - Last Reconciled 09/22/24 by Keena Scherer MD albuterol sulfate 90 mcg/actuation 2 puffs inhalation Q4H PRN aspirin (Adult Low Dose Aspirin) 81 mg PO DAILY cetirizine (All Day Allergy (cetirizine)) 10 mg PO DAILY PRN 90 days cholecalciferol (vitamin D3) 50 mcg PO DAILY cyanocobalamin (vitamin B-12) 1,000 mcg PO DAILY 90 days fluticasone propionate 50 mcg/actuation 1 spray intranasal DAILY 30 days hydrochlorothiazide 25 mg PO QAM irbesartan 300 mg PO DAILY omega-3 acid ethyl esters 2 caps PO BID 90 days omeprazole 20 mg PO DAILY 90 days simvastatin 20 mg PO DAILY 90 days Tobacco use date assessed: 09/22/24 Fall risk assessment: No Falls in past year Last assessed Fall Risk: 09/22/24 Dental Screening Dental Screen Date: 09/22/24 Did you have a dental visit in the last 12 months?: No Did you have a dental problem in the last 6 months where you did not have access to dental care?: No Was dental information given to patient?: No HPI Annual Physical HPI Details History of Present Illness - The patient is a 69-year-old male pres enting for an annual physical examination. - Patient has a history of hypertension and is currently on hydrochlorothiazide 25 mg daily, with well-controlled blood pressure at 126 mmHg systolic. - Known history of hyperlipidemia manage d with simvastatin 20 mg. - GERD managed with omeprazole 20 mg as reported in prior visits. - Reports a history of allergic rhinitis , which is managed with cetirizine and fluticasone nasal spray. - Noted an increase in weight, with a ga in of approximately 50 pounds over months; however, he has recently lost 11 pounds since May through increased physical activity, specifically playing softball. - The patient denies any significant rec ent health changes aside from weight gain due to inactivity over the past three months and has resumed softball to aid in weight reduction and activity level. - Recently changed pharmacy to [facility] due to insurance preferences. Vitamin B12 is requested at the new pharmacy. Health Maintenance - The patient is due for a colonoscopy t his year; he recalls the last procedure was five years ago. - Blood test results are reported to be within normal limits, including glucose levels. - Encouraged to continue weight loss by avoiding regular soda and choosing water to decrease calorie intake Medications - Albuterol (for reported use, indicatio n not specified) - Aspirin (dose unspecified, assumed for cardiovascular prophylaxis) - Cetirizine (for allergic rhinitis) - B12 (indicated for deficiency) - Vitamin D (not specified, likely for s upplementation) - Fluticasone nasal spray (for allergic rhinitis) - Hydrochlorothiazide 25 mg (for hyperte nsion) - Ibuprofen 300 mg (indication not speci fied, likely for pain/inflammation) - Omeprazole 20 mg (for GERD) - Simvastatin 20 mg (for hyperlipidemia) Diagnostic results - Labs: Blood test results reported as n ormal, including glucose levels without specific values provided. Patient Instructions - Avoid regular soda and opt for water t o aid in weight loss. - Expect a call to schedule a colonoscop y as he is due this year. - Continue physical activity such as joaquin alvin softball but avoid overexertion to prevent injury. Review of Systems - General: No fever no chills - Neurological: No headaches no dizzin ess - Ear nose throat: No sore throat no hearing difficulty no ear pain - Cardiovascular: No syncope, no chest pain, no palpitations - Gastrointestinal: No nausea vomiting or diarrhea - Endocrine: No polyuria polydipsia no heat intolerance - Genitourinary: No dysuria - Skin: No new complaints Physical Exam General: Cooperative, healthy appearing, comfortable, no acute distress Orientation: Patient oriented x3 Head: Normal to inspection Ears: Within normal limit visually Nose: Normal external nose present Face and sinus: Normal facial exam Eyes: Appearance normal, extraocular movement intact pupils reactive Neck: Normal visual inspection and supple Respiratory: Normal respiratory effort and able to speak in complete sentences. Clear to auscultation, no stridor Cardiovascular: S1 and S2 RRR GI: Normal to inspection. Soft to palpation and nontender Skin: Turgor normal, no acute findings Neuro: Patient oriented x3, motor sensory intact, balance intact, tandem failed Extremities: Normal to inspection, no swelling, knees and arms good [facility] Medical History B12 deficiency Obesity Environmental allergies Chronic GERD Asthma Hypertension, essential Lipid disorder Surgical History History of appendectomy Family History Father History of open heart surgery Kidney stone HTN (hypertension) Mother HTN (hypertension) Rheumatoid arthritis Maternal Grandfather No problems noted. Maternal Grandmother No problems noted. Paternal Grandfather Diabetes mellitus Stroke Maternal Grandmother No problems noted. Sister No problems noted. Daughter No problems noted. Brother No problems noted. Brother No problems noted. Brother No problems noted. Brother No problems noted. Brother No problems noted. Social History Housing: House Alcohol intake: never Patient Tobacco Use Status: Former Tobacco user Years Smoked: 3 years e-Cigarette/Vaping Use: Never Used service: No Current occupational status: retired Cognitive needs: No Hearing needs: No Vision needs: Yes Questionnaire Thrive Questionnaire Date Thrive assessed: 09/22/24 BENITA-7 AMB Questionnaire BENITA-7 Date BENITA - 7 assessed: 09/20/23 Source: Developed by Drs. Tim Howard, Hilary Landis, Nacho Putnam and colleagues, with an educational nicole from [employer]. Physical exam (Primary Care) Vital Signs: Last Vital Signs Temp 98.3 F 09/22/24 14:10 Pulse 78 09/22/24 14:10 Resp 16 09/22/24 14:10 BP 126/90 H 09/22/24 14:10 Pulse Ox 97 09/22/24 14:10 Oxygen Delivery Method Room Air 09/22/24 14:10 BMI result Body Mass Index 38.2 Tobacco/Smoking Status: Tobacco use Status Tobacco use date assessed 09/22/24 09/22/24 14:12 Patient Tobacco Use Status Former Tobacco user 09/22/24 14:12 e-Cigarette/Vaping Use Never Used 09/22/24 14:12 Thrive Assessment: Date of Thrive Assessment Date Thrive assessed 09/22/24 09/22/24 14:12 Coding Level of Care Code Est Pt Level 3 (01870) Est Pt Prev Care >65y(04442) Diagnoses Encounter for general adult medical examination with abnormal findings Z00.01 Colon cancer screening Z12.11 Hypertension, essential I10 Lipid disorder E78.9 Chronic GERD K21.9 Environmental allergies Z91.09 Elevated fasting blood sugar R73.01 Class 2 severe obesity due to excess calories with serious comorbidity and body mass index (BMI) of 35.0 to 35.9 in adult E66.01; Z68.35 Obesity classification: adult class 2 (BMI 35 - 39.9) Serious obesity comorbidity presence: with serious comorbidity Body mass index: BMI 35.0-35.9 LFT elevation R79.89 B12 deficiency E53.8 Assessment & Plan Assessment & Plan (1) Encounter for general adult medical examination with abnormal findings: Code(s): Z00.01 - Encounter for general adult medical examination with abnormal findings Category: Medical (2) Colon cancer screening: Code(s): Z12.11 - Encounter for screening for malignant neoplasm of colon Category: Medical (3) Hypertension, essential: Code(s): I10 - Essential (primary) hypertension Category: Medical (4) Lipid disorder: Code(s): E78.9 - Disorder of lipoprotein metabolism, unspecified Category: Medical (5) Chronic GERD: Code(s): K21.9 - Gastro-esophageal reflux disease without esophagitis Category: Medical (6) Environmental allergies: Code(s): Z91.09 - Other allergy status, other than to drugs and biological substances Category: Medical (7) Elevated fasting blood sugar: Code(s): R73.01 - Impaired fasting glucose Category: Medical (8) Obesity due to excess calories: Code(s): E66.09 - Other obesity due to excess calories Category: Medical Qualifiers: Obesity classification: adult class 2 (BMI 35 - 39.9) Serious obesity comorbidity presence: with serious comorbidity Body mass index: BMI 35.0-35.9 Qualified Code(s): E66.01 - Morbid (severe) obesity due to excess calories; Z68.35 - Body mass index [BMI] 35.0-35.9, adult (9) LFT elevation: Code(s): R79.89 - Other specified abnormal findings of blood chemistry Category: Medical (10) B12 deficiency: Code(s): E53.8 - Deficiency of other specified B group vitamins Category: Medical Plan History of Present Illness - The patient is a 69-year-old male presenting for an annual physical examination. - Patient has a history of hypertension and is currently on hydrochlorothiazide 25 mg daily, with well-controlled blood pressure at 126 mmHg systolic. - Known history of hyperlipidemia managed with simvastatin 20 mg. - GERD managed with omeprazole 20 mg as reported in prior visits. - Reports a history of allergic rhinitis, which is managed with cetirizine and fluticasone nasal spray. - Noted an increase in weight, with a gain of approximately 50 pounds over months; however, he has recently lost 11 pounds since May through increased physical activity, specifically playing softball. - The patient denies any significant recent health changes aside from weight gain due to inactivity over the past three months and has resumed softball to aid in weight reduction and activity level. - Recently changed pharmacy to [facility] due to insurance preferences. Vitamin B12 is requested at the new pharmacy. Health Maintenance - The patient is due for a colonoscopy this year; he recalls the last procedure was five years ago. - Blood test results are reported to be within normal limits, including glucose levels. - Encouraged to continue weight loss by avoiding regular soda and choosing water to decrease calorie intake Medications - Albuterol (for reported use, indication not specified) - Aspirin (dose unspecified, assumed for cardiovascular prophylaxis) - Cetirizine (for allergic rhinitis) - B12 (indicated for deficiency) - Vitamin D (not specified, likely for supplementation) - Fluticasone nasal spray (for allergic rhinitis) - Hydrochlorothiazide 25 mg (for hypertension) - Ibuprofen 300 mg (indication not specified, likely for pain/inflammation) - Omeprazole 20 mg (for GERD) - Simvastatin 20 mg (for hyperlipidemia) Diagnostic results - Labs: Blood test results reported as normal, including glucose levels without specific values provided. Patient Instructions - Avoid regular soda and opt for water to aid in weight loss. - Expect a call to schedule a colonoscopy as he is due this year. - Continue physical activity such as playing softball but avoid overexertion to prevent injury. Orders: Orders Lipid Panel 3 Months E53.8 - Deficiency of other specified B group vitamins, E66.01 - Morbid (severe) obesity due to excess calories, E78.9 - Disorder of lipoprotein metabolism, unspecified, I10 - Essential (primary) hypertension, K21.9 - Gastro-esophageal reflux disease without esophagitis, R73.01 - Impaired fasting glucose, R79.89 - Other specified abnormal findings of blood chemistry, Z68.35 - Body mass index [BMI] 35.0-35.9, adult, Z91.09 - Other allergy status, other than to drugs and biological substances TSH reflex Free T4 3 Months E53.8 - Deficiency of other specified B group vitamins, E66.01 - Morbid (severe) obesity due to excess calories, E78.9 - Disorder of lipoprotein metabolism, unspecified, I10 - Essential (primary) hypertension, K21.9 - Gastro-esophageal reflux disease without esophagitis, R73.01 - Impaired fasting glucose, R79.89 - Other specified abnormal findings of blood chemistry, Z68.35 - Body mass index [BMI] 35.0-35.9, adult, Z91.09 - Other allergy status, other than to drugs and biological substances Hemoglobin A1c 3 Months E53.8 - Deficiency of other specified B group vitamins, E66.01 - Morbid (severe) obesity due to excess calories, E78.9 - Disorder of lipoprotein metabolism, unspecified, I10 - Essential (primary) hypertension, K21.9 - Gastro-esophageal reflux disease without esophagitis, R73.01 - Impaired fasting glucose, R79.89 - Other specified abnormal findings of blood chemistry, Z68.35 - Body mass index [BMI] 35.0-35.9, adult, Z91.09 - Other allergy status, other than to drugs and biological substances Complete Blood Count Auto Diff 3 Months E53.8 - Deficiency of other specified B group vitamins, E66.01 - Morbid (severe) obesity due to excess calories, E78.9 - Disorder of lipoprotein metabolism, unspecified, I10 - Essential (primary) hypertension, K21.9 - Gastro-esophageal reflux disease without esophagitis, R73.01 - Impaired fasting glucose, R79.89 - Other specified abnormal findings of blood chemistry, Z68.35 - Body mass index [BMI] 35.0-35.9, adult, Z91.09 - Other allergy status, other than to drugs and biological substances Comprehensive [place]. Panel Fast 3 Months E53.8 - Deficiency of other specified B group vitamins, E66.01 - Morbid (severe) obesity due to excess calories, E78.9 - Disorder of lipoprotein metabolism, unspecified, I10 - Essential (primary) hypertension, K21.9 - Gastro-esophageal reflux disease without esophagitis, R73.01 - Impaired fasting glucose, R79.89 - Other specified abnormal findings of blood chemistry, Z68.35 - Body mass index [BMI] 35.0-35.9, adult, Z91.09 - Other allergy status, other than to drugs and biological substances Vitamin B12 3 Months E53.8 - Deficiency of other specified B group vitamins Referrals Gastroenterology Referral Z12.11 - Encounter for screening for malignant neoplasm of colon Medications: Refilled cyanocobalamin (vitamin B-12) 1,000 mcg PO DAILY 90 days 90 tabs 3RF cetirizine (All Day Allergy (cetirizine)) 10 mg PO DAILY 90 days PRN 90 tabs 3RF allergy symptoms Z91.09 - Other allergy status, other than to drugs and biological substances irbesartan 300 mg PO DAILY 90 tabs 1RF fluticasone propionate 50 mcg/actuation administer into each nostril 1 spray intranasal DAILY 30 days 16 grams 2RF hydrochlorothiazide 25 mg PO QAM 90 tabs 1RF omeprazole 20 mg PO DAILY 90 days 90 tabs 0RF simvastatin 20 mg PO DAILY 90 days 90 tabs 0RF E78.9 - Disorder of lipoprotein metabolism, unspecified
--- OUTSIDE RECORDS SUMMARY | 2024-09-22 16:47 | XMS_ITS | Clinical Summary ---
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 Alen Sood, #[phone]: had EGD: tx for H pylori advise repeat EGD in 3 years, DUE 2018 based on tubular adenomas in the cecum Bx: gastric antal and fundic body mucosa with chronic, mildly active gastritis, c/w h pylori 2. Stomach pylori fold bx: same as above 3. Gastric nodules bx: same above 4. Cecum polypetomies: tubular adenomas 5.rectum polypetomies hyperplaastic polyp Asthma ([facility]) Overview (10/16/2014): With allergy only. No meds Right shoulder pain Overview (02/24/2015): PT hurt with sleeping x 5-6 yr. rotator cuff. Went to [facility], had injection, they think surgery would be [...] PLAN:repeat 3-5 years based on path results ([id number]) had normal at [facility], at 50, due again. Neg FHX [...] Not on file Insurance [employer] [facility] [place] [facility] GENERIC - DENTAL
== END 2024-09-22 14:34 | disposition home or self-care (01) ==
LOC: HO.HMCC 14:00
PROVIDERS: PCP Internal Medicine; Visit Provider Internal Medicine
DX: Z00.01 Encounter for general adult medical examination with abnormal findings (principal); I10 Essential (primary) hypertension; E66.01 Morbid (severe) obesity due to excess calories; Z68.35 Body mass index [BMI] 35.0-35.9, adult; Z12.11 Encounter for screening for malignant neoplasm of colon; E78.9 Disorder of lipoprotein metabolism, unspecified; K21.9 Gastro-esophageal reflux disease without esophagitis; Z91.09 Other allergy status, other than to drugs and biological substances; R73.01 Impaired fasting glucose; R79.89 Other specified abnormal findings of blood chemistry; E53.8 Deficiency of other specified B group vitamins

== ENCOUNTER → 2024-09-22 14:00 | Outpatient (BNVA) | payer MEDICARE, SELFPAY | PROVIDERS: PCP Internal Medicine; Visit Provider Internal Medicine | DX: Z00.01 Encounter for general adult medical examination with abnormal findings (principal); I10 Essential (primary) hypertension; K21.9 Gastro-esophageal reflux disease without esophagitis; E78.5 Hyperlipidemia, unspecified; E78.9 Disorder of lipoprotein metabolism, unspecified; R73.01 Impaired fasting glucose; E66.01 Morbid (severe) obesity due to excess calories; R79.89 Other specified abnormal findings of blood chemistry; E53.8 Deficiency of other specified B group vitamins; Z68.35 Body mass index [BMI] 35.0-35.9, adult; Z91.09 Other allergy status, other than to drugs and biological substances; Z79.899 Other long term (current) drug therapy | CPT/HCPCS: 99397 ==

== ENCOUNTER 2024-12-02 10:21 | Outpatient (AMB) | payer MEDICARE, SELFPAY ==
--- NOTE | 2024-12-02 10:32 | A.OFFVIS_ITS ---
Vital Signs 12/02/24 10:38 Height 5 ft 8 in Weight 240 lb BMI 36.5 BP 125/71 Blood Pressure Location Lt brachial Position Sitting Pulse 68 Pulse Oximetry (%) 98 Oxygen Delivery Method Room Air Intake Visit Reasons: [place] screening , repeat Intake Note: Patient new consult for 4 th pre Colonoscopy screening, last one was at [facility] Patient cc: between diarrhea and constipation on and off, acid reflex with burning sensation at night time and abdominal discomfort. Patient said he think he have an infection in his stomach. Manager Business Systems Required: No Accompanied by: Self / Same As Patient Allergies acetaminophen (Percocet) Allergy (Unknown, Verified 12/02/24 10:32) Unknown amlodipine Allergy (Unknown, Verified 12/02/24 10:32) foot swelling codeine Allergy (Unknown, Verified 12/02/24 10:32) Unknown oxycodone (Percocet) Allergy (Unknown, Verified 12/02/24 10:32) Unknown atenolol Adverse Reaction (Mild, Verified 12/02/24 10:32) bradycardia Environmental Allergy (Unknown, Uncoded 09/22/24 14:11) Unknown HPI HPI [place] screening , repeat: Details: Patient is a 69-year-old male with PMH of asthma, hypertension, hyperlipidemia and obesity. Nicola presents for follow-up of colonoscopy performed in June 2019 and evalua tion of recent gastrointestinal symptoms. Reports previous H. pylori infection with successful treatment. Shares for the past 3-4 weeks he has experienced liquid diarrhea with urgency, resulting in 3-4 accidents where he did not make it to the restroom in time. He describes stools as liquid with a lot of air . He finds these episodes embarrassing. He also complains of ongoing heartburn that varies depending on what he eats. He takes omeprazole 20 mg daily without food since 2007, which helps but still experiences breakthrough symptoms, particularly at night. He reports occasional regurgitation, describing it as food or liquid staying right in there. He uses xtle-lix-caifuop antacids for reflux symptoms, which provide some relief. He mentions waking up scared due to losing his breath while sleeping, which he attributes to snoring. He denies fever/chills, n/v, appetite changes, ab pain, blood in stools, trouble swallowing, or unexplained weight loss. He mentions playing softball recently, which has led to some weight loss. Social hx: -denies ETOH use -denies recreational drug use -No current tobacco use -denies significant cardiopulmonary history -tolerated anesthesia in the past without difficulty. [facility] Medical History (Updated 12/02/24 @ 11:05 by Marina Carvalho CNP) Change in stool B12 deficiency Obesity Environmental allergies Chronic GERD Asthma Hypertension, essential Lipid disorder Surgical History (Updated 12/02/24 @ 10:33 by Danica Schaffer) Hx of colonoscopy History of appendectomy Family History Father History of open heart surgery Kidney stone HTN (hypertension) Mother HTN (hypertension) Rheumatoid arthritis Maternal Grandfather No problems noted. Maternal Grandmother No problems noted. Paternal Grandfather Diabetes mellitus Stroke Maternal Grandmother No problems noted. Sister No problems noted. Daughter No problems noted. Brother No problems noted. Brother No problems noted. Brother No problems noted. Brother No problems noted. Brother No problems noted. Social History Housing: House Alcohol intake: never Patient Tobacco Use Status: Former Tobacco user Years Smoked: 3 years e-Cigarette/Vaping Use: Never Used service: No Current occupational status: retired Cognitive needs: No Hearing needs: No Vision needs: Yes Review of Systems Const Reports as per HPI ENT Reports as per HPI Card Reports as per HPI Resp Reports as per HPI GI Reports as per HPI Reports as per HPI Physical Exam Vital Signs: Last Vital Signs Pulse 68 12/02/24 10:38 BP 125/71 12/02/24 10:38 Pulse Ox 98 12/02/24 10:38 Oxygen Delivery Method Room Air 12/02/24 10:38 BMI result Body Mass Index 36.5 Const General: healthy appearing, no acute distress and well developed Nutritional Appearance: well nourished Orientation/consciousness: patient oriented x3 HEENT Head: Yes normal to inspection, Yes normocephalic and Yes atraumatic Face and sinus: Yes normal facial exam Eyes General: appearance normal, both eyes and all related structures Neck Neck: Yes normal visual inspection Resp Effort & Inspection: normal respiratory effort, able to speak in complete sentences, no tracheal deviation and symmetric chest movement Auscultation: clear to auscultation bilaterally Cardio Jugular venous distension: no JVD Rate: regular rate Rhythm: regular rhythm Heart sounds: S1 normal heart sound present, S2 normal heart sound present, no gallops and no murmurs GI Inspection: Yes normal to inspection, No distended and Yes obesity Palpation (GI): Soft to palpation, not firm, nontender and No hepatosplenomegaly present Auscultation: normal bowel sounds Neuro General: patient oriented x3 Gait exam (Neuro): Normal gait present Psych Appearance: grossly normal Mental Status: mental status grossly normal Speech and movement: Normal speech and movement present Affect: normal affect Attitude: cooperative Thought process: Normal thought process present Thought content: Normal thought content present Insight: Good insight present (Psych) Judgement: Good judgement present (Psych) Assessment & Plan Assessment & Plan (1) Colon cancer screening: Comment: 06/16/19 colonoscopy complete with excellent prep-hyperplastic polyp, internal hemorrhoids. Code(s): Z12.11 - Encounter for screening for malignant neoplasm of colon Category: Medical Plan: Non-cancerous polyp identified on June 2019 colonoscopy. - Proceed with scheduled colonoscopy. Medications: -prescriptions for laxative tablets and MiraLax sent to pharmacy; instructions for Gatorade purchase and clear liquid diet given. -understands ASA will need to be held days prior to procedure. Nurse to review med holds per protocol. Patient educated on scheduling process, procedure preparation, including avoiding certain foods and ensuring clear liquid intake Advised on necessity for ride post-procedure due to sedation. (2) Change in stool: Code(s): R19.5 - Other fecal abnormalities Category: Medical Plan: Three to four weeks of liquid stools with urgency and fecal incontinence episodes. - Order stool tests. - Order thyroid function test. - Proceed with colonoscopy as above. (3) Chronic GERD: Code(s): K21.9 - Gastro-esophageal reflux disease without esophagitis Category: Medical Plan: Ongoing heartburn and nocturnal reflux symptoms despite omeprazole 20 mg daily. - Increase omeprazole to 40 mg daily. - Add famotidine at bedtime. - Schedule H. pylori breath test in 2 weeks. - Discontinue omeprazole and all antacids for 2 weeks prior to breath test. - Reinforce lifestyle: avoid trigger foods (caffeine, alcohol, carbonated bever ages, spicy foods, fatty foods, fried foods), consume smaller meals, remain upright after eating, prop head up on pillows while sleeping. - Reassess symptoms after upper endoscopy. Plan Follow-up after endoscopy or sooner as needed Time: I spent a total of 40 minutes on the date of encounter which includes: Preparing to see the patient (reviewed previous documentation, test results and medical history) Performing a medically appropriate exam and/or evaluation Ordering medications, tests, and procedures Documenting clinical information in the health record Orders: Orders Leukocytes Stool Qualitative Today R19.5 - Other fecal abnormalities GI Panel Today R19.5 - Other fecal abnormalities Fecal Fat Qualitative Today R19.5 - Other fecal abnormalities TSH reflex Free T4 Today R19.5 - Other fecal abnormalities Medications: New bisacodyl Take four tablets once for 1 day per colonoscopy instructions 5 mg PO ONCE 4 tabs 0RF 1 day polyethylene glycol 3350 (Miralax) per colonoscopy prep instructions 238 grams PO ONCE 238 grams 0RF famotidine Take one tablet daily at bedtime 20 mg PO BEDTIME 90 tabs 1RF GERD omeprazole Take one tablet daily. Best taken 30 minutes before meal 40 mg PO DAILY 90 caps 1RF Discontinued omeprazole Discontinued Reason: Doctor's Order 20 mg PO DAILY 90 days 90 tabs 0RF Coding Level of Care Code New Pt New Pt Level 4 (52470) Patient Type New Diagnoses Colon cancer screening Z12.11 Change in stool R19.5 Chronic GERD K21.9
[2024-12-02 10:38] VITALS: BP 125/71; PULSE 68; O2SAT 98; BMI 36.5
--- OUTSIDE RECORDS SUMMARY | 2024-12-02 10:55 | XMS_ITS | Clinical Summary ---
Author Organization [facility] Address [address] [place] [address] Care Team Providers Care Paying Teller Name Role Phone Unavailable Primary Care Provider [...] Saw GI 02/28/15: saw Dr. Alen Sood, #[phone]: had EGD: tx for H pylori advise repeat EGD in 3 years, DUE 2018 based on tubular adenomas in the cecum Bx: gastric antal and fundic body mucosa with chronic, mildly active gastritis, c/w h pylori 2. Stomach pylori fold bx: same as above 3. Gastric nodules bx: same above 4. Cecum polypetomies: tubular adenomas 5.rectum polypetomies hyperplaastic polyp Asthma ([facility]) Overview (10/16/2014): With allergy only. No meds Right shoulder pain Overview (02/24/2015): PT hurt with sleeping x 5-6 yr. rotator cuff. Went to [facility], had injection, they think surgery would be [...] PLAN:repeat 3-5 years based on path results ([id number]) had normal at [facility], at 50, due again. Neg FHX [...] 80 05/26/2015 10:15 AM EST Temperature 37.1 C (98.7 F) 02/24/2015 10:07 AM EDT Respiratory Rate 19 05/26/2015 10:1 5 AM EST Oxygen Saturation - - Inhaled Oxygen Concentration - - Weight 101.1 kg (222 lb 14.4 oz) 2014 10:15 AM EST Height 172.7 cm (5' 8 ) 02/24/2015 10:0 7 AM EDT Body Mass Index 33.89 02/24/2015 10:07 AM EDT Plan of Treatment Not on file Insurance [employer] NET [facility] PLAN GENERIC - DENTAL
== END 2024-12-02 11:23 | disposition home or self-care (01) ==
LOC: HO.HGI 10:22
PROVIDERS: PCP Internal Medicine; Visit Provider Nurse Practitioner Family
DX: Z86.0102 Personal history of hyperplastic colon polyps (principal); Z12.11 Encounter for screening for malignant neoplasm of colon; R19.5 Other fecal abnormalities; K21.9 Gastro-esophageal reflux disease without esophagitis
CPT/HCPCS: 99204

== ENCOUNTER 2024-12-02 10:21 | Outpatient (REF) | payer MEDICARE, SELFPAY | END 2024-12-02 10:22 | disposition home or self-care (01) | LOC: HO.LAB 10:21 | PROVIDERS: PCP Internal Medicine; Visit Provider Nurse Practitioner Family | DX: Z12.11 Encounter for screening for malignant neoplasm of colon (principal); R19.5 Other fecal abnormalities; K21.9 Gastro-esophageal reflux disease without esophagitis; Z79.899 Other long term (current) drug therapy | CPT/HCPCS: 36415; 84443; 99202 ==

== ENCOUNTER 2024-12-03 10:21 | Outpatient (REF) | payer MEDICARE, SELFPAY ==
--- OUTSIDE RECORDS SUMMARY | 2024-12-03 11:03 | XMS_ITS | Clinical Summary ---
Author Organization [facility] Address [id number] Care Team Providers Care Mold Mechanic Name Role Phone Unavailable Primary Care Provider [...] Saw GI 02/28/15: saw Dr. Alen Sood, #[phone]: had EGD: tx for H pylori advise repeat EGD in 3 years, DUE 2018 based on tubular adenomas in the cecum Bx: gastric antal and fundic body mucosa with chronic, mildly active gastritis, c/w h pylori 2. Stomach pylori fold bx: same as above 3. Gastric nodules bx: same above 4. Cecum polypetomies: tubular adenomas 5.rectum polypetomies hyperplaastic polyp Asthma ([facility]) Overview (10/16/2014): With allergy only. No meds Right shoulder pain Overview (02/24/2015): PT hurt with sleeping x 5-6 yr. rotator cuff. Went to [facility], had injection, they think surgery would [...] PLAN:repeat 3-5 years based on path results ([id number]) had normal at [facility], at 50, due again. Neg FHX for [...]
[2024-12-03 11:38] LABS: Leukocytes Stool Qualitative NEGATIVE (NEGATIVE)
[2024-12-03 16:52] LABS: E. coli EAEC Not Detected (Not Detect.); E. coli EPEC Detected (Not Detect.); E. coli ETEC Not Detected (Not Detect.); E. coli STEC Not Detected (Not Detect.); Shigella sp./EIEC Not Detected (Not Detect.)
== END 2024-12-03 10:22 | disposition home or self-care (01) ==
LOC: HO.LNP 10:21
PROVIDERS: Visit Provider Nurse Practitioner Family
DX: R19.5 Other fecal abnormalities (principal)
CPT/HCPCS: 82705; 87507; 89055

== ENCOUNTER 2024-12-17 13:18 | Outpatient (REF) | payer MEDICARE, SELFPAY | END 2024-12-17 13:19 | disposition home or self-care (01) | LOC: HO.LNP 13:18 | PROVIDERS: PCP Internal Medicine; Visit Provider Nurse Practitioner Family | DX: K21.9 Gastro-esophageal reflux disease without esophagitis (principal) | CPT/HCPCS: 83013 ==

== ENCOUNTER 2024-12-23 11:24 | Outpatient (AMB) | payer MEDICARE, SELFPAY ==
[2024-12-23 11:27] VITALS: BP 126/76; PULSE 70; O2SAT 96; BMI 36.7
--- NOTE | 2024-12-23 11:27 | MHC.OFFWIV ---
Intake Vital Signs 12/23/24 11:27 Height 5 ft 8 in Weight 241 lb 4 oz BMI 36.7 BP 126/76 Blood Pressure Location Lt brachial Position Sitting Pulse 70 Pulse Source Pulse Oximeter Pulse Oximetry (%) 96 Oxygen Delivery Method Room Air Intake Visit Reasons: 3m follow up Patient Tobacco Use Status: Former Tobacco user Allergies acetaminophen (Percocet) Allergy (Unknown, Verified 12/23/24 11:27) Unknown amlodipine Allergy (Unknown, Verified 12/23/24 11:27) foot swelling codeine Allergy (Unknown, Verified 12/23/24 11:27) Unknown oxycodone (Percocet) Allergy (Unknown, Verified 12/23/24 11:27) Unknown atenolol Adverse Reaction (Mild, Verified 12/23/24 11:27) bradycardia Environmental Allergy (Unknown, Uncoded 09/22/24 14:11) Unknown [facility] Medical History (Updated 12/02/24 @ 11:05 by Marina Carvalho CNP) Change in stool B12 deficiency Obesity Environmental allergies Chronic GERD Asthma Hypertension, essential Lipid disorder Surgical History (Updated 12/02/24 @ 10:33 by Danica Schaffer) Hx of colonoscopy History of appendectomy Family History Father History of open heart surgery Kidney stone HTN (hypertension) Mother HTN (hypertension) Rheumatoid arthritis Maternal Grandfather No problems noted. Maternal Grandmother No problems noted. Paternal Grandfather Diabetes mellitus Stroke Maternal Grandmother No problems noted. Sister No problems noted. Daughter No problems noted. Brother No problems noted. Brother No problems noted. Brother No problems noted. Brother No problems noted. Brother No problems noted. Social History Housing: House Alcohol intake: never Patient Tobacco Use Status: Former Tobacco user Years Smoked: 3 years e-Cigarette/Vaping Use: Never Used service: No Current occupational status: retired Cognitive needs: No Hearing needs: No Vision needs: Yes Coding
--- OUTSIDE RECORDS SUMMARY | 2024-12-23 12:23 | XMS_ITS | Clinical Summary ---
Author Organization [facility] Address [address] [place] [address] Care Team Providers Care Hospice Nurse Practitioner Name Role Phone Unavailable Primary Care Provider [...] Saw GI 02/28/15: saw Dr. Alen Sood, #[phone]: had EGD: tx for H pylori advise repeat EGD in 3 years, DUE 2018 based on tubular adenomas in the cecum Bx: gastric antal and fundic body mucosa with chronic, mildly active gastritis, c/w h pylori 2. Stomach pylori fold bx: same as above 3. Gastric nodules bx: same above 4. Cecum polypetomies: tubular adenomas 5.rectum polypetomies hyperplaastic polyp Asthma ([facility]) Overview (10/16/2014): With allergy only. No meds Right shoulder pain Overview (02/24/2015): PT hurt with sleeping x 5-6 yr. rotator cuff. Went to [facility], had injection, they think surgery would be [...] PLAN:repeat 3-5 years based on path results ([id number]) had normal at [facility], at 50, due again. Neg FHX for colon CA. Neg for blood guiac neg x 3 10/18/14 LBP (low back pain) Overview (10/14/2014): rad down left leg. no BB prob. no fever. Ne eval for this, motrin relieves Allergy, unspecified not elsewhere classified Overview (10/14/2014): seasonal Immunizations Immunization Administration Dates Next Due Hep B, Adult/Adol ([id number]-B-QJNLQ/RECOMBIVAX-AD ULT) 03/29/2015,02/24/2015 INFLUENZA, SEASONAL, INJECTABLE 02/24/2015 TDAP 05/26/2015 Zoster, [...] Not on file Insurance [employer]AF[employer] NET [facility] PLAN GENERIC - DENTAL
--- NOTE | 2024-12-23 15:48 | A.OFFPC_ITS ---
Vital Signs 12/23/24 11:27 Height 5 ft 8 in Weight 241 lb 4 oz BMI 36.7 BP 126/76 Blood Pressure Location Lt brachial Position Sitting Pulse 70 Pulse Source Pulse Oximeter Pulse Oximetry (%) 96 Oxygen Delivery Method Room Air Intake Visit Reasons: 3m follow up Allergies acetaminophen (Percocet) Allergy (Unknown, Verified 12/23/24 11:27) Unknown amlodipine Allergy (Unknown, Verified 12/23/24 11:27) foot swelling codeine Allergy (Unknown, Verified 12/23/24 11:27) Unknown oxycodone (Percocet) Allergy (Unknown, Verified 12/23/24 11:27) Unknown atenolol Adverse Reaction (Mild, Verified 12/23/24 11:27) bradycardia Environmental Allergy (Unknown, Uncoded 09/22/24 14:11) Unknown Medication List - Last Reconciled 12/23/24 by Keena Scherer MD albuterol sulfate 90 mcg/actuation 2 puffs inhalation Q4H PRN aspirin (Adult Low Dose Aspirin) 81 mg PO DAILY cetirizine (All Day Allergy (cetirizine)) 10 mg PO DAILY PRN 90 days cholecalciferol (vitamin D3) 50 mcg PO DAILY cyanocobalamin (vitamin B-12) 1,000 mcg PO DAILY 90 days famotidine 20 mg PO BEDTIME fluticasone propionate 50 mcg/actuation 1 spray intranasal DAILY 30 days hydrochlorothiazide 25 mg PO QAM irbesartan 300 mg PO DAILY omega-3 acid ethyl esters 2 caps PO BID 90 days omeprazole 40 mg PO DAILY simvastatin 20 mg PO DAILY 90 days Tobacco use date assessed: 09/22/24 Dental Screening Dental Screen Date: 09/22/24 HPI 3m follow up HPI Details History - The patient is a 69-year-old male pres enting for his ongoing care Seeing Gastroenterology for the management of diarrhea diarrhea. - Reports chronic diarrhea persisting ov er time. - A stool specimen was analyzed, reveali ng the presence of E. coli O157 antigen. - Previously underwent a breath test on the , which showed negative results for H. pylori. - Elevated awareness of thyroid function lab results, which were normal. - Patient has a history of hypertension and is currently on hydrochlorothiazide 25 mg daily, with well-controlled blood pressure - Known history of hyperlipidemia manage d with simvastatin 20 mg. - GERD managed gastroenterology now - Reports a history of allergic rhinitis , which is managed with cetirizine and fluticasone nasal spray. Medications: - Simvastatin 20 mg - Erbicartin 300 mg - Hydrochlorothiazide 25 mg - Omeprazole (dose changed recently) - Nasal spray - Famotidine (Pepcid) - Vitamin D - Vitamin B12 - Allergy medicine - Aspirin Patient Instructions - Make an appointment with the gastroent erologist to discuss persistent diarrhea. - Continue taking existing medications a s prescribed. - Avoid ibuprofen due to potential stoma ch issues. - Ensure fasted state for the upcoming b lood test. - continue other medications Review of Systems - General: No fever no chills - Neurological: No headaches no dizziness - Ear nose throat: No sore throat no hearing difficulty no ear pain - Cardiovascular: No syncope, no chest pain, no palpitations - Gastrointestinal: No nausea vomiting or diarrhea - Endocrine: No polyuria polydipsia no heat intolerance - Genitourinary: No dysuria , no blood in urine Physical Exam General: No acute distress HEENT: No acute findings Neck: Supple Respiratory system: Able to talk in full sentences, no audible wheeze Cardiovascular: S1-S2 regular in rate and rhythm Gastrointestinal: No pain Extremities: No new findings 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 Maternal Grandmother No problems noted. Paternal Grandfather Diabetes mellitus Stroke Maternal Grandmother No problems noted. Sister No problems noted. Daughter No problems noted. Brother No problems noted. Brother No problems noted. Brother No problems noted. Brother No problems noted. Brother No problems noted. Social History Housing: House Alcohol intake: never Patient Tobacco Use Status: Former Tobacco user Years Smoked: 3 years e-Cigarette/Vaping Use: Never Used service: No Current occupational status: retired Cognitive needs: No Hearing needs: No Vision needs: Yes Questionnaire Thrive Questionnaire Date Thrive assessed: 09/22/24 BENITA-7 AMB Questionnaire BENITA-7 Date BENITA - 7 assessed: 09/20/23 Source: Developed by Drs. Tim Howard, Hilary Landis, Nacho Putnam and colleagues, with an educational nicole from [employer]. Review of Systems Const Denies chills and Denies fever(s) ENT Denies epistaxis and Denies nasal discharge Card Denies chest pain Resp Denies chest congestion, Denies cough and Denies hemoptysis GI Denies nausea Skin/Breast Denies rash Neuro Reports no additional complaints Psych Reports no additional complaints Endo Reports no additional complaints Physical exam (Primary Care) Vital Signs: Last Vital Signs Pulse 70 12/23/24 11:27 BP 126/76 12/23/24 11:27 Pulse Ox 96 12/23/24 11:27 Oxygen Delivery Method Room Air 12/23/24 11:27 BMI result Body Mass Index 36.7 Tobacco/Smoking Status: Tobacco use Status Tobacco use date assessed 09/22/24 10/22/24 11:50 Patient Tobacco Use Status Former Tobacco user 10/22/24 11:50 e-Cigarette/Vaping Use Never Used 10/22/24 11:50 Thrive Assessment: Date of Thrive Assessment Date Thrive assessed 09/22/24 10/22/24 11:50 Const General: cooperative, comfortable and no acute distress Orientation/consciousness: patient oriented x3 HENMT Head: Yes normocephalic Eyes General: appearance normal, both eyes and all related structures Neck Neck: Yes supple Resp Effort & Inspection: normal respiratory effort, no cough and no stridor Cardio Rhythm: regular rhythm Heart sounds: S1 normal heart sound present and S2 normal heart sound present Skin General skin exam: turgor normal Neuro General: patient oriented x3, tone normal and moves all extremities Extrem Right lower extremity: no edema Left lower extremity: no edema Coding Level of Care Code Est Pt Level 4 (09023) Complex EM visit Add On G2211 Diagnoses Hypertension, essential I10 Lipid disorder E78.9 Chronic GERD K21.9 Environmental allergies Z91.09 Elevated fasting blood sugar R73.01 Class 2 severe obesity due to excess calories with serious comorbidity and body mass index (BMI) of 35.0 to 35.9 in adult E66.01; Z68.35 Obesity classification: adult class 2 (BMI 35 - 39.9) Serious obesity comorbidity presence: with serious comorbidity Body mass index: BMI 35.0-35.9 LFT elevation R79.89 B12 deficiency E53.8 Assessment & Plan Assessment & Plan (1) Hypertension, essential: Code(s): I10 - Essential (primary) hypertension Category: Medical (2) Lipid disorder: Code(s): E78.9 - Disorder of lipoprotein metabolism, unspecified Category: Medical (3) Chronic GERD: Code(s): K21.9 - Gastro-esophageal reflux disease without esophagitis Category: Medical (4) Environmental allergies: Code(s): Z91.09 - Other allergy status, other than to drugs and biological substances Category: Medical (5) Elevated fasting blood sugar: Code(s): R73.01 - Impaired fasting glucose Category: Medical (6) Obesity due to excess calories: Code(s): E66.09 - Other obesity due to excess calories Category: Medical Qualifiers: Obesity classification: adult class 2 (BMI 35 - 39.9) Serious obesity comorbidity presence: with serious comorbidity Body mass index: BMI 35.0-35.9 Qualified Code(s): E66.01 - Morbid (severe) obesity due to excess calories; Z68.35 - Body mass index [BMI] 35.0-35.9, adult (7) LFT elevation: Code(s): R79.89 - Other specified abnormal findings of blood chemistry Category: Medical (8) B12 deficiency: Code(s): E53.8 - Deficiency of other specified B group vitamins Category: Medical Plan History - The patient is a 69-year-old male presenting for his ongoing care Seeing Gastroenterology for the management of diarrhea diarrhea. - Reports chronic diarrhea persisting over time. - A stool specimen was analyzed, revealing the presence of E. coli O157 antigen. - Previously underwent a breath test on the , which showed negative results for H. pylori. - Elevated awareness of thyroid function lab results, which were normal. - Patient has a history of hypertension and is currently on hydrochlorothiazide 25 mg daily, with well-controlled blood pressure - Known history of hyperlipidemia managed with simvastatin 20 mg. - GERD managed gastroenterology now - Reports a history of allergic rhinitis, which is managed with cetirizine and fluticasone nasal spray. Medications: - Simvastatin 20 mg - Erbicartin 300 mg - Hydrochlorothiazide 25 mg - Omeprazole (dose changed recently) - Nasal spray - Famotidine (Pepcid) - Vitamin D - Vitamin B12 - Allergy medicine - Aspirin Patient Instructions - Make an appointment with the office analyst to discuss persistent diarrhea. - Continue taking existing medications as prescribed. - Avoid ibuprofen due to potential stomach issues. - Ensure fasted state for the upcoming blood test. - continue other medications
== END 2024-12-23 11:48 | disposition home or self-care (01) ==
LOC: HO.HMCC 11:25
PROVIDERS: PCP Internal Medicine; Visit Provider Internal Medicine
DX: I10 Essential (primary) hypertension (principal); E78.9 Disorder of lipoprotein metabolism, unspecified; E66.01 Morbid (severe) obesity due to excess calories; Z68.35 Body mass index [BMI] 35.0-35.9, adult; K21.9 Gastro-esophageal reflux disease without esophagitis; Z91.09 Other allergy status, other than to drugs and biological substances; R73.01 Impaired fasting glucose; R79.89 Other specified abnormal findings of blood chemistry; E53.8 Deficiency of other specified B group vitamins

== ENCOUNTER → 2024-12-23 11:24 | Outpatient (BNVA) | payer MEDICARE, SELFPAY | PROVIDERS: PCP Internal Medicine; Visit Provider Internal Medicine | DX: I10 Essential (primary) hypertension (principal); K21.9 Gastro-esophageal reflux disease without esophagitis; K52.9 Noninfective gastroenteritis and colitis, unspecified; J30.9 Allergic rhinitis, unspecified; E78.9 Disorder of lipoprotein metabolism, unspecified; Z91.09 Other allergy status, other than to drugs and biological substances; R73.01 Impaired fasting glucose; E66.01 Morbid (severe) obesity due to excess calories; R79.89 Other specified abnormal findings of blood chemistry; E53.8 Deficiency of other specified B group vitamins; Z68.35 Body mass index [BMI] 35.0-35.9, adult; Z79.899 Other long term (current) drug therapy | CPT/HCPCS: 99212 ==

== ENCOUNTER 2024-12-28 10:45 | Outpatient (REF) | payer MEDICARE, SELFPAY ==
[2024-12-28 11:04] LABS: MANUAL DIFF FLAG NO
[2024-12-28 11:51] LABS: Hematocrit 44.0 % (42.0-52.0); Hemoglobin 15.4 g/dl (14.0-18.0); Imm Gran Abs Auto 0.02 X10*3/uL (0.00-0.03); Imm Gran Pct Auto 0.4 % (0.0-0.4); Lymphocytes Absolute Auto 1.6 X10*3/uL (1.2-4.9); Mean Corpuscular HGB Conc 35.0 g/dl (31.0-36.0); Mean Corpuscular Hemoglobin 29.9 pg (27.0-33.0); Mean Corpuscular Volume 85.4 fL (80.0-98.0); NRBC Abs Auto 0.000 X10*3/uL (0.0-0.012); NRBC Pct Auto 0.0 /100WBC (0.0-0.2); Platelet Count 211 X10*3/uL (160-400); Red Blood Count 5.15 X10*6/uL (4.60-5.80); White Blood Count 4.7 X10*3/uL (4.8-10.8)
--- OUTSIDE RECORDS SUMMARY | 2024-12-28 11:59 | XMS_ITS | Clinical Summary ---
Author Organization [facility] Address [address] [place] [address] Care Team Providers Care Hospice Music Therapy Name Role Phone Unavailable Primary Care Provider [...] Saw GI 02/28/15: saw Dr. Alen Sood, #[phone]: had EGD: tx for H pylori advise repeat EGD in 3 years, DUE 2018 based on tubular adenomas in the cecum Bx: gastric antal and fundic body mucosa with chronic, mildly active gastritis, c/w h pylori 2. Stomach pylori fold bx: same as above 3. Gastric nodules bx: same above 4. Cecum polypetomies: tubular adenomas 5.rectum polypetomies hyperplaastic polyp Asthma ([facility]) Overview (10/16/2014): With allergy only. No meds Right shoulder pain Overview (02/24/2015): PT hurt with sleeping x 5-6 yr. rotator cuff. Went to [facility], had injection, they think surgery would be [...] PLAN:repeat 3-5 years based on path results ([id number]) had normal at [facility], at 50, due again. Neg FHX for colon CA. Neg for blood guiac neg x 3 10/18/14 LBP (low back pain) Overview (10/14/2014): rad down left leg. no BB prob. no fever. Ne eval for this, motrin relieves Allergy, unspecified not elsewhere classified Overview (10/14/2014): seasonal Immunizations Immunization Administration Dates Next Due Hep B, Adult/Adol ([id number]/RECOMBIVAX-AD ULT) 03/29/2015,02/24/2015 INFLUENZA, SEASONAL, INJECTABLE 02/24/2015 TDAP [...] file Insurance HEALTH SAFETY NET [facility] PLAN GENERIC - DENTAL
[2024-12-28 12:04] LABS: Hemoglobin A1C 147.6814 umol/L; Total Hemoglobin (HGBA1C) 3905.4032 umol/L
[2024-12-28 12:27] LABS: Alanine Aminotransferase 39 U/L (0-40); Albumin Level 4.3 g/dL (3.5-5.0); Alkaline Phosphatase 75 U/L (39-117); Anion Gap 13 (12-20); Aspartate Amino Transferase 32 U/L (5-37); Blood Urea Nitrogen 18 mg/dL (9-16); Calcium 8.9 mg/dL (8.4-10.2); Carbon Dioxide 26 mmol/L (22-29); Chloride 106 mmol/L (96-108); Cholesterol 140 mg/dL (<200); Estimated Glomerular Filt Rate > 60; HDL Cholesterol 33 mg/dL (>40); Potassium 3.1 mmol/L (3.3-5.1); Sodium 142 mmol/L (135-145); Total Protein 7.0 g/dL (6.5-8.0); Triglycerides 284 mg/dL (<150)
[2024-12-28 12:51] LABS: Vitamin B12 608 pg/mL (200-900)
== END 2024-12-28 10:46 | disposition home or self-care (01) ==
LOC: HO.LAB 10:45
PROVIDERS: PCP Internal Medicine; Visit Provider Nurse Practitioner Family
DX: I10 Essential (primary) hypertension (principal); K21.9 Gastro-esophageal reflux disease without esophagitis; E53.8 Deficiency of other specified B group vitamins; E78.9 Disorder of lipoprotein metabolism, unspecified; E66.01 Morbid (severe) obesity due to excess calories; Z68.35 Body mass index [BMI] 35.0-35.9, adult; R79.89 Other specified abnormal findings of blood chemistry; R73.01 Impaired fasting glucose; R19.7 Diarrhea, unspecified; Z91.09 Other allergy status, other than to drugs and biological substances
CPT/HCPCS: 36415; 80053; 80061; 82607; 83036; 84443; 85025; 86140; 86364

== ENCOUNTER 2024-12-29 11:16 | Outpatient (REF) | payer MEDICARE, SELFPAY ==
--- OUTSIDE RECORDS SUMMARY | 2024-12-29 12:30 | XMS_ITS | Clinical Summary ---
Author Organization [facility] Address [address] [place] [address] Care Team Providers Care Spider Assembler Name Role Phone Unavailable Primary Care Provider [...] Saw GI 02/28/15: saw Dr. Alen Sood, #[phone]: had EGD: tx for H pylori advise repeat EGD in 3 years, DUE 2018 based on tubular adenomas in the cecum Bx: gastric antal and fundic body mucosa with chronic, mildly active gastritis, c/w h pylori 2. Stomach pylori fold bx: same as above 3. Gastric nodules bx: same above 4. Cecum polypetomies: tubular adenomas 5.rectum polypetomies hyperplaastic polyp Asthma ([facility]) Overview (10/16/2014): With allergy only. No meds Right shoulder pain Overview (02/24/2015): PT hurt with sleeping x 5-6 yr. rotator cuff. Went to [facility], had injection, they think surgery would [...] PLAN:repeat 3-5 years based on path results ([id number]) had normal at [facility], at 50, due again. Neg FHX for colon CA. Neg for blood guiac neg x 3 10/18/14 LBP (low back pain) Overview (10/14/2014): rad down left leg. no BB prob. no fever. Ne eval for this, motrin relieves Allergy, unspecified not elsewhere classified Overview (10/14/2014): seasonal Immunizations Immunization Administration Dates Next Due Hep B, Adult/Adol ([id number]/RECOMBIVAX-AD ULT) 03/29/2015,02/24/2015 INFLUENZA, SEASONAL, INJECTABLE 02/24/2015 TDAP [...] Not on file Insurance HEALTH SAFETY NET [facility] PLAN GENERIC - DENTAL
[2025-01-04 00:48] LABS: Calprotectin, Fecal 173 mcg/g
== END 2024-12-29 11:17 | disposition home or self-care (01) ==
LOC: HO.LNP 11:16
PROVIDERS: Visit Provider Nurse Practitioner Family
DX: R19.7 Diarrhea, unspecified (principal)
CPT/HCPCS: 83993

== ENCOUNTER 2025-01-04 11:01 | Outpatient (REF) | payer MEDICARE, SELFPAY ==
--- OUTSIDE RECORDS SUMMARY | 2025-01-04 12:01 | XMS_ITS | Clinical Summary ---
Author Organization [facility] Address [address] [place] [address] Care Team Providers Care Sales And Merchandising Representative Name Role Phone Unavailable Primary Care Provider [...] Saw GI 02/28/15: saw Dr. Alen Sood, #[phone]: had EGD: tx for H pylori advise repeat EGD in 3 years, DUE 2018 based on tubular adenomas in the cecum Bx: gastric antal and fundic body mucosa with chronic, mildly active gastritis, c/w h pylori 2. Stomach pylori fold bx: same as above 3. Gastric nodules bx: same above 4. Cecum polypetomies: tubular adenomas 5.rectum polypetomies hyperplaastic polyp Asthma ([facility]) Overview (10/16/2014): With allergy only. No meds Right shoulder pain Overview (02/24/2015): PT hurt with sleeping x 5-6 yr. rotator cuff. Went to [facility], had injection, they think surgery would [...] PLAN:repeat 3-5 years based on path results ([id number]) had normal at [facility], at 50, due again. Neg FHX for colon CA. Neg for blood guiac neg x 3 10/18/14 LBP (low back pain) Overview (10/14/2014): rad down left leg. no BB prob. no fever. Ne eval for this, motrin relieves Allergy, unspecified not elsewhere classified Overview (10/14/2014): seasonal Immunizations Immunization Administration Dates Next Due Hep B, Adult/Adol ([id number]/RECOMBIVAX-AD ULT) 03/29/2015,02/24/2015 INFLUENZA, SEASONAL, INJECTABLE 02/24/2015 TDAP [...] Not on file Insurance HEALTH SAFETY NET [facility] PLAN GENERIC - DENTAL
[2025-01-04 13:48] LABS: Potassium 3.3 mmol/L (3.3-5.1)
== END 2025-01-04 11:02 | disposition home or self-care (01) ==
LOC: HO.HMGCLDS 11:01
PROVIDERS: PCP Internal Medicine; Visit Provider Internal Medicine
DX: E87.6 Hypokalemia (principal)
CPT/HCPCS: 36415; 84132

== ENCOUNTER 2025-03-25 08:45 | Day surgery (SDC) | payer MEDICARE, SELFPAY ==
[2025-03-23 12:31] VITALS: BMI 36.6
--- NOTE | 2025-03-25 09:27 | MHC.SHP ---
Pre-Procedural Eval Section A - 24 Hr Update-Section A only Date of Service: 03/25/25 Section B - Complete if H&P > 30 days Chief Complaint: gerd, change in bowel habits Details of Present Illness: Change in stool B12 deficiency Obesity Environmental allergies Chronic GERD Asthma Hypertension, essential Lipid disorder Surgical History (Updated 12/02/24 @ 10:33 by Danica Schaffer) Hx of colonoscopy History of appendectomy Present Medications: see Short Stay Collaborative assessment Allergies: Allergies Allergy/AdvReac Type Severity Reaction Status Date / Time amlodipine Allergy Unknown foot Verified 12/23/24 11:27 swelling codeine Allergy Unknown Unknown Verified 12/23/24 11:27 environmental allergies Allergy Unknown Unknown Verified 03/23/25 12:26 oxycodone (Percocet) Allergy Unknown Unknown Verified 12/23/24 11:27 atenolol AdvReac Mild bradycardia Verified 12/23/24 11:27 Review of Systems Review of Systems Comment: Ten point ROS negative Exam Exam Comment: Gen appear: No acute distress, with obesity HEENT: no icterus Chest: No overt resp distress Abd: soft, nontender, nondistended Psych: Stable affect, answering questions appropriately Neuro: A/Ox3 noted to move all extremities spontaneously Ext: no peripheral edema Plan Diagnosis/Plan: Unchanged I have reviewed the history and physical and performed a pertinent physical examination on my patient. No changes have occurred unless specified. Time Spent With Patient Time: Total time managing care of this patient today ____ minutes.
[2025-03-25 09:28] VITALS: BMI 35.9
[2025-03-25 09:32] VITALS: BP 140/83; PULSE 71; RESP 16; TEMP 36.4; O2SAT 97
[2025-03-25] MEDS: Lactated Ringers 1,000 ML 100 ML IVCONT (09:47)
--- NOTE | 2025-03-25 09:52 | HO.ANESPROP2 ---
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) Acute sinusitis (Acute) Chronic lower back pain (Acute) Muscle spasm (Acute) Left knee pain (Acute) Left hip pain (Acute) Left lumbar radiculitis (Acute) Eczema (Acute) LFT elevation (Acute) Obesity due to excess calories (Acute) Blurring of vision (Acute) Hearing difficulty (Acute) Elevated fasting blood sugar (Acute) Encounter for general adult medical examination with abnormal findings (Acute) Dysuria (Acute) Nocturia (Acute) Diarrhea (Acute) Change in stool (Acute) B12 deficiency (Acute) Obesity (Acute) Environmental allergies (Acute) Chronic GERD (Acute) Asthma (Acute) Hypertension, essential (Acute) Lipid disorder (Acute) Past Medical History Medical History (Updated 03/23/25 @ 12:32 by Ilana Martinez RN) Hypokalemia Diarrhea Change in stool B12 deficiency Obesity Environmental allergies Chronic GERD Asthma Hypertension, essential Lipid disorder Family History Family History Father History of open heart surgery Kidney stone HTN (hypertension) Mother HTN (hypertension) Rheumatoid arthritis Maternal Grandfather No problems noted. Maternal Grandmother No problems noted. Paternal Grandfather Diabetes mellitus Stroke Maternal Grandmother No problems noted. Sister No problems noted. Daughter No problems noted. Brother No problems noted. Brother No problems noted. Brother No problems noted. Brother No problems noted. Brother No problems noted. Surgical History Surgical History Hx of colonoscopy History of appendectomy Social History Social History Housing: House Alcohol intake: never Patient Tobacco Use Status: Former Tobacco user Years Smoked: 3 years e-Cigarette/Vaping Use: Never Used Use of substances other than those prescribed or required for medical reasons: No Are you DNR?: No Advance Directives: No Advance Directives Information Provided: Yes Poor oral hygiene: No service: No Current occupational status: retired Cognitive needs: No Hearing needs: No Vision needs: Yes Meds Allergies Allergy/AdvReac Type Severity Reaction Status Date / Time amlodipine Allergy Unknown foot Verified 12/23/24 11:27 swelling codeine Allergy Unknown Unknown Verified 12/23/24 11:27 environmental allergies Allergy Unknown Unknown Verified 03/23/25 12:26 oxycodone (Percocet) Allergy Unknown Unknown Verified 12/23/24 11:27 atenolol AdvReac Mild bradycardia Verified 12/23/24 11:27 Home Medications ?Medication ?Instructions ?Recorded ?Confirmed ?Last Taken ?Type aspirin 81 mg tablet,delayed 81 mg PO DAILY 04/22/20 03/23/25 Unknown History release (Adult Low Dose Aspirin) cholecalciferol (vitamin D3) 50 50 mcg PO DAILY 04/22/20 03/23/25 Unknown History mcg (2,000 unit) capsule Exam Height,Weight and Vital Signs: Height 5 ft 8 in Weight 109.316 kg Documented by User: Norma Valenzuela DO 03/25/25 09:52 [facility] Past Medical History Medical History (Updated 03/23/25 @ 12:32 by Ilana Martinez RN) Hypokalemia Diarrhea Change in stool B12 deficiency Obesity Environmental allergies Chronic GERD Asthma Hypertension, essential Lipid disorder Family History Family History Father History of open heart surgery Kidney stone HTN (hypertension) Mother HTN (hypertension) Rheumatoid arthritis Maternal Grandfather No problems noted. Maternal Grandmother No problems noted. Paternal Grandfather Diabetes mellitus Stroke Maternal Grandmother No problems noted. Sister No problems noted. Daughter No problems noted. Brother No problems noted. Brother No problems noted. Brother No problems noted. Brother No problems noted. Brother No problems noted. Family history of problems with anesthesia: No Surgical History Surgical History Hx of colonoscopy History of appendectomy History of Problems with Anesthesia: No Social History Social History Housing: House Alcohol intake: never Patient Tobacco Use Status: Former Tobacco user Years Smoked: 3 years e-Cigarette/Vaping Use: Never Used Use of substances other than those prescribed or required for medical reasons: No Are you DNR?: No Advance Directives: No Advance Directives Information Provided: Yes Poor oral hygiene: No service: No Current occupational status: retired Cognitive needs: No Hearing needs: No Vision needs: Yes Meds Allergies Allergy/AdvReac Type Severity Reaction Status Date / Time amlodipine Allergy Unknown foot Verified 12/23/24 11:27 swelling codeine Allergy Unknown Unknown Verified 12/23/24 11:27 environmental allergies Allergy Unknown Unknown Verified 03/23/25 12:26 oxycodone (Percocet) Allergy Unknown Unknown Verified 12/23/24 11:27 atenolol AdvReac Mild bradycardia Verified 12/23/24 11:27 Home Medications ?Medication ?Instructions ?Recorded ?Confirmed ?Last Taken ?Type aspirin 81 mg tablet,delayed 81 mg PO DAILY 04/22/20 03/23/25 Unknown History release (Adult Low Dose Aspirin) cholecalciferol (vitamin D3) 50 50 mcg PO DAILY 04/22/20 03/23/25 Unknown History mcg (2,000 unit) capsule Exam Exam Date and Time: 03/25/25 0952 Airway Mallampati Class: II TM Dist: >3cm Neck ROM: Full Loose/Missing/Broken Teeth: Yes (edentulous) Heart: S1S2 Lungs: CTAB Assessment and Plan Assessment Anesthesia Assessment: Anesthesia Plan Discussed and Chart Reviewed Final Anesthetic Review Family History of Problems with Anesthesia: No History of Problems with Anesthesia: No NPO: Yes ASA Class: II Final Preanesthetic Review: No Changes in Pt Med Stat, Meds/Allgs Chart Reviewed, Consent Obtained/Reviewed and Anes Risks/Benef Reviewed Patient Risk: Low Procedure Risk: Low Anesthetic Plan Anesthetic Plan: MAC: and Agree w/ Assess. and Plan Disposition: Standard PACU
[2025-03-25 10:47] VITALS: BP 97/61; PULSE 68; RESP 14; TEMP 36.2; O2SAT 95
[2025-03-25 11:02] VITALS: BP 123/82; PULSE 69; RESP 16; TEMP 36.1; O2SAT 95
--- NOTE | 2025-03-25 11:05 | P.OPN-COLO_ITS ---
Colonoscopy Operative Note Operative Note Date of Service: 03/25/25 Narrative: Procedure: Upper endoscopy and colonoscopy Indication: GERD, change in bowel habits Endoscopist: Roseanna Wild MD Anesthesia Provider: Davida Guillen CRNA Anesthesia type: MAC Instrument: [id number] and [id number] EGD Procedure:?? The procedure, indications, preparation and potential complications were reviewed with the patient, who indicated understanding and gave written informed consent to proceed. The endoscope was introduced through the mouth, and advanced to the 2nd part of the duodenum. The mucosa was carefully examined on slow withdrawal of the endoscope. The patient tolerated the procedure well. There were no immediate complications.? EGD Findings:? * Esophagus:? Normal esophageal mucosa was noted. The Z-line was at 42 cm. * Stomach:? Mild erythema and edema of gastric body with a prominent gastric fold in the antrum. Retroflexion was performed in the cardia. Cold forceps biopsies were taken from the stomach body and antrum. * Duodenum:? Normal duodenal mucosa. Cold forceps biopsies were taken from the duodenal bulb and 2nd portion of the duodenum to rule out celiac sprue. Colonoscopy Procedure:? The patient was then turned for the colonoscopy. A digital rectal exam was performed which was normal.? A distal attachment cap was affixed to the tip of the scope and the colonoscope was then inserted through the anus and advanced th rough the colon and advanced to the cecum at 80 cm and terminal ileum.? Appendiceal orifice and ileocecal valve were identified. Mucosa was carefully examined under high definition white light as the instrument was slowly withdrawn in a retrograde panoramic fashion. Retroflexion was performed in rectum. The procedure was not difficult. The quality of the prep was BBPS: 3+2+2 = adequate Withdrawal time 12 minutes Limitations: No limitations Findings: Mucosa: Normal colon and terminal ileum mucosa. Cold forceps biopsies were taken of the right and left side of the colon to rule out microscopic colitis. Protruding lesions: * One sessile polyp of size 4 mm noted in cecum. Cold snare polypectomy was performed. The polyp was completely removed and retrieved. * Two sessile polyps of size 2-6 mm noted in transverse colon. Cold snare polypectomy was performed. The polyps were completely removed and retrieved. * Medium internal hemorrhoids without stigmata of recent bleeding. Excavated lesions: * Mild diverticulosis of sigmoid colon. Impression: 1. Normal esophagus 2. Gastritis (biopsy) 3. Normal duodenum (biopsy) 4. Normal colon and terminal ileum mucosa (biopsy) 5. Total 3 polyps removed 6. Diverticulosis 7. Internal hemorrhoids Recommendations:?? * Follow-up path results * Avoid NSAIDs * H Pylori treatment if biopsies + * Cont PPI * Repeat colonoscopy in 3 years if all 3 polyps are adenomas, otherwise 7 years.
== END 2025-03-25 11:26 | disposition home or self-care (01) ==
PROVIDERS: PCP Internal Medicine; Visit Provider Internal Medicine
PROC: (CPT 45380; principal; 2025-03-25 10:40)
DX: R19.5 Other fecal abnormalities (principal); K21.9 Gastro-esophageal reflux disease without esophagitis; Z86.0109 Personal history of other colon polyps; K57.30 Diverticulosis of large intestine without perforation or abscess without bleeding; D12.0 Benign neoplasm of cecum; D12.3 Benign neoplasm of transverse colon
CPT/HCPCS: 45380; 45385; 43239; 88305; 88313; 88342; J2003; J2704

== ENCOUNTER → 2025-03-25 08:45 | Outpatient (BNV) | payer MEDICARE, SELFPAY | PROVIDERS: PCP Internal Medicine; Visit Provider Internal Medicine | DX: K21.9 Gastro-esophageal reflux disease without esophagitis (principal); K29.70 Gastritis, unspecified, without bleeding; R19.4 Change in bowel habit; K63.5 Polyp of colon; K57.30 Diverticulosis of large intestine without perforation or abscess without bleeding; K64.8 Other hemorrhoids | CPT/HCPCS: 43239; 45385 ==

== ENCOUNTER 2025-04-06 11:19 | Outpatient (AMB) | payer MEDICARE, SELFPAY ==
[2025-04-06 11:20] VITALS: BP 120/80; PULSE 76; O2SAT 96; BMI 36.0
--- NOTE | 2025-04-06 11:20 | A.OFFPC_ITS ---
Vital Signs 04/06/25 11:20 Height 5 ft 8 in Weight 237 lb BMI 36.0 BP 120/80 Blood Pressure Location Lt brachial Position Sitting Pulse 76 Pulse Source Pulse Oximeter Pulse Oximetry (%) 96 Intake Visit Reasons: 4m follow up Allergies amlodipine Allergy (Unknown, Verified 04/06/25 11:20) foot swelling codeine Allergy (Unknown, Verified 04/06/25 11:20) Unknown environmental allergies Allergy (Unknown, Verified 04/06/25 11:20) Unknown oxycodone (Percocet) Allergy (Unknown, Verified 04/06/25 11:20) Unknown atenolol Adverse Reaction (Mild, Verified 04/06/25 11:20) bradycardia Medication List - Last Reconciled 04/06/25 by Keena Scherer MD albuterol sulfate 90 mcg/actuation 2 puffs inhalation Q4H PRN aspirin (Adult Low Dose Aspirin) 81 mg PO DAILY cetirizine (All Day Allergy (cetirizine)) 10 mg PO DAILY PRN 90 days cholecalciferol (vitamin D3) 50 mcg PO DAILY cyanocobalamin (vitamin B-12) 1,000 mcg PO DAILY 90 days famotidine 20 mg PO BEDTIME fluticasone propionate 50 mcg/actuation 1 spray intranasal DAILY 30 days hydrochlorothiazide 25 mg PO QAM irbesartan 300 mg PO DAILY Lactobacillus acidophilus 10,000 mmu cells PO BID omega-3 acid ethyl esters 2 caps PO BID 90 days omeprazole 40 mg PO DAILY simvastatin 20 mg PO DAILY 90 days Tobacco use date assessed: 09/22/24 Fall risk assessment: No Falls in past year Last assessed Fall Risk: 04/06/25 Dental Screening Dental Screen Date: 09/22/24 HPI 4m follow up HPI Details History The patient is a 70-year-old male presenting for a regular follow-up on his chronic conditions and evaluation of acute left knee pain, however patient have this problem chronically Left knee pain: - The patient reports pain in the left l eg, with the most severe pain localized to the knee, and some lesser pain in the hip. - This is a recurring problem, and a kne e x-ray performed two years ago was normal. - The patient believes the current exace rbation may be due to a recent fall while playing. - The pain improves and then returns. - He has a history of receiving cortison e injections in his knee and hip to manage pain while he was working but wishes to avoid them now. - His activities include hunting and car rying deer, which put stress on his knees. 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 - He recently underwent a colonoscopy tw o days ago, during which three polyps were removed and biopsied. - The results show diverticulosis, inter nal hemorrhoids, and some stomach inflammation. - A biopsy confirmed a tubular adenoma, which has malignant potential. - A follow-up colonoscopy in three years is recommended. - Following the procedure, the patient h as noticed his stool is black. - His diarrhea has improved. Chronic Disease Management: - Patient's blood pressure is well-contr olled on medications - He takes simvastatin 20 mg for hyperli pidemia. - He takes fluticasone nasal spray and c etirizine for stable allergies. - Last labs from December showed no anemia, intact kidney functions, stable liver enzymes, HbA1c of 5.6%, LDL of 51, and normal TSH and B12 levels. - His potassium was low at 3.1 in December a nd was 3.3 on repeat testing in January. Tinea versicolor: Chronic problem Surgical History: - Colonoscopy with polypectomy (2 days p rior) Social History: - Employment: Retired since 2011. - Functional Status/Exercise: Patient is active, engaging in activities such as hunting, walking, and carrying deer. Problem List - Hypertension - Hyperlipidemia - Gastroesophageal reflux disease (GERD) - Allergic rhinitis - Left knee pain - Hypokalemia - History of tubular adenoma of colon - Diverticulosis - Internal hemorrhoids - Gastritis - tinea versicolor - Preventative care: Influenza vaccinati on - Preventative care: Follow-up colonosco py [place] [facility] - The patient is followed by a gastroent erologist for GERD and will see them in May for colonoscopy follow-up. Plan - Knee Pain: A small dose of oral predni sone will be prescribed. - Patient advised to wear a knee brace d uring strenuous activities such as hunting. - Patient advised to call if knee pain p ersists after finishing the course of prednisone. - Pain management: Tylenol is permitted for pain relief. - GI issues: Patient is advised to avoid NSAIDs such as ibuprofen, Motrin, and Aleve due to stomach inflammation. - The patient will continue omeprazole a s directed by his candle extrusion machine operator. - A follow-up colonoscopy is recommended in three years. - Chronic Medications: Continue current medications for hypertension, hyperlipidemia, and allergies. - Health Maintenance: An order will be p laced for labs to be completed before the next visit. - The patient was advised to get the sen ior dose flu vaccine at a pharmacy. - Follow-up: Return to clinic in [facility] three months. Review of Systems General: No fever no chills neurological: No headaches no dizziness ear nose throat: No sore throat no hearing difficulty no ear pain cardiovascular: No syncope, no chest pain, no palpitations gastrointestinal: No nausea vomiting or diarrhea endocrine: No polyuria polydipsia no heat intolerance genitourinary: No dysuria skin: No new complaints Physical Exam general: No acute distress HEENT: No acute findings neck: Supple respiratory system: Able to talk in full sentences, no audible wheeze no stridor cardiovascular: S1-S2 RRR gastrointestinal: No pain extremities: Pain in the left knee, worst pain in the knee, hip is also hurting but not as bad CRAPS MANAGER: Alert awake oriented x3 motor sensory intact skin: Normal turgor, presence of tinea versicolor PFSH Medical History Hypokalemia Diarrhea Change in stool B12 deficiency Obesity Environmental allergies Chronic GERD Asthma Hypertension, essential Lipid disorder Surgical History Hx of colonoscopy History of appendectomy Family History Father History of open heart surgery Kidney stone HTN (hypertension) Mother HTN (hypertension) Rheumatoid arthritis Maternal Grandfather No problems noted. Maternal Grandmother No problems noted. Paternal Grandfather Diabetes mellitus Stroke Maternal Grandmother No problems noted. Sister No problems noted. Daughter No problems noted. Brother No problems noted. Brother No problems noted. Brother No problems noted. Brother No problems noted. Brother No problems noted. Social History Housing: House Alcohol intake: never Patient Tobacco Use Status: Former Tobacco user Years Smoked: 3 years e-Cigarette/Vaping Use: Never Used service: No Current occupational status: retired Cognitive needs: No Hearing needs: No Vision needs: Yes Questionnaire PHQ-9 Over the last 2 weeks, how often have you been bothered by any of the following problems? 1. Little interest or pleasure in doing things: not at all 2. Feeling down, depressed, or hopeless: not at all 3. Trouble falling or staying asleep, or sleeping too much: not at all 4. Feeling tired or having little energy: not at all 5. Poor appetite or overeating: not at all 6. Feeling bad about yourself - or that you are a failure or have let yourself or your family down: not at all 7. Trouble concentrating on things, such as reading the newspaper or watching television: not at all 8. Moving or speaking so slowly that other people could have noticed. Or the opposite - being so fidgety or restless that you have been moving around a lot more than usual: not at all 9. Thoughts that you would be better off or of hurting yourself in some way: not at all Total score: 0 Depression Screening Interpretation: Negative Depression Screening Done: Yes 77775 - PHQ-9 Billing: Yes Source: Developed by Drs. Tim Howard, Hilary Landis, Nacho Putnam and colleagues, with an educational nicole from [employer]. Thrive Questionnaire Date Thrive assessed: 09/22/24 AUDIT C Alcohol Use Questionnaire (AUDIT-C) 1. How often do you have a drink containing alcohol?: Never 3. How often do you have six or more drinks on one occasion?: Never Total Score: 0 Score Reviewed/Action Taken: Yes BENITA-7 AMB Questionnaire BENITA-7 Date BENITA - 7 assessed: 04/06/25 Feeling nervous, anxious, or on edge: 0 = Not at all Not being able to stop or control worryin = Not at all Worrying too much about different things: 0 = Not at all Trouble relaxin = Not at all Being so restless that it is hard to sit still: 0 = Not at all Becoming easily annoyed or irritable: 0 = Not at all Feeling afraid as if something awful might happen: 0 = Not at all Total BENITA-7 score (0-4 normal; 5-9 mild; 10-14 moderate; 15-21 severe): 0 Source: Developed by Drs. Tim Howard, Hilary Landis, Nacho Putnam and colleagues, with an educational nicole from [employer]. BENITA-7 Assessment Billing BENITA-7 Assessment Tool: BENITA-7 Assessment 92332 Physical exam (Primary Care) Vital Signs: Last Vital Signs Pulse 76 04/06/25 11:20 BP 120/80 04/06/25 11:20 Pulse Ox 96 04/06/25 11:20 BMI result Body Mass Index 36.0 Tobacco/Smoking Status: Tobacco use Status Tobacco use date assessed 09/22/24 04/06/25 11:24 Patient Tobacco Use Status Former Tobacco user 04/06/25 11:24 e-Cigarette/Vaping Use Never Used 04/06/25 11:24 PHQ-9: PHQ-9 Score PHQ-9: Total score 0 04/06/25 11:47 Depression Screening Interpretation: Negative Thrive Assessment: Date of Thrive Assessment Date Thrive assessed 09/22/24 04/06/25 11:24 Coding Level of Care Code Est Pt Level 5 (54302) Diagnoses Acute pain of left knee M25.562 Chronicity: acute Tubular adenoma of colon D12.6 Hypertension, essential I10 Chronic superficial gastritis without bleeding K29.30 Chronicity: chronic Gastritis bleeding: without bleeding Gastritis type: superficial Tinea versicolor B36.0 Lipid disorder E78.9 Elevated fasting blood sugar R73.01 Class 2 severe obesity due to excess calories with serious comorbidity and body mass index (BMI) of 35.0 to 35.9 in adult E66.01; Z68.35 Body mass index: BMI 35.0-35.9 Obesity classification: adult class 2 (BMI 35 - 39.9) Serious obesity comorbidity presence: with serious comorbidity B12 deficiency E53.8 Environmental allergies Z91.09 Chronic GERD K21.9 Mild intermittent asthma, unspecified whether complicated J45.20 Asthma complication type: unspecified Asthma persistence: intermittent Asthma severity: mild Diverticulosis K57.90 Internal hemorrhoids K64.8 Additional Codes BENITA-7 Assessment Billing - BENITA-7 Assessment Tool: BENITA-7 Assessment 42347 ([id number]) PHQ-9 - 23485 - PHQ-9 Billing: Yes ([id number]) Time Spent (min) 41 Comment Reviewing chart/reports/labs/wgwx-kn-uvtk/coordination of care Assessment & Plan Assessment & Plan (1) Left knee pain: Code(s): M25.562 - Pain in left knee Category: Medical Qualifiers: Chronicity: acute Qualified Code(s): M25.562 - Pain in left knee (2) Tubular adenoma of colon: Code(s): D12.6 - Benign neoplasm of colon, unspecified Category: Medical (3) Hypertension, essential: Code(s): I10 - Essential (primary) hypertension Category: Medical (4) Gastritis: Code(s): K29.70 - Gastritis, unspecified, without bleeding Category: Medical Qualifiers: Chronicity: chronic Gastritis bleeding: without bleeding Gastritis type: superficial Qualified Code(s): K29.30 - Chronic superficial gastritis without bleeding (5) Tinea versicolor: Code(s): B36.0 - Pityriasis versicolor Category: Medical (6) Lipid disorder: Code(s): E78.9 - Disorder of lipoprotein metabolism, unspecified Category: Medical (7) Elevated fasting blood sugar: Code(s): R73.01 - Impaired fasting glucose Category: Medical (8) Obesity due to excess calories: Code(s): E66.09 - Other obesity due to excess calories Category: Medical Qualifiers: Body mass index: BMI 35.0-35.9 Obesity classification: adult class 2 (BMI 35 - 39.9) Serious obesity comorbidity presence: with serious comorbidity Qualified Code(s): E66.01 - Morbid (severe) obesity due to excess calories; Z68.35 - Body mass index [BMI] 35.0-35.9, adult (9) B12 deficiency: Code(s): E53.8 - Deficiency of other specified B group vitamins Category: Medical (10) Environmental allergies: Code(s): Z91.09 - Other allergy status, other than to drugs and biological substances Category: Medical (11) Chronic GERD: Code(s): K21.9 - Gastro-esophageal reflux disease without esophagitis Category: Medical (12) Asthma: Comment: Stable seasonal Code(s): J45.909 - Unspecified asthma, uncomplicated Category: Medical Qualifiers: Asthma complication type: unspecified Asthma persistence: intermittent Asthma severity: mild Qualified Code(s): J45.20 - Mild intermittent asthma, uncomplicated (13) Diverticulosis: Code(s): K57.90 - Diverticulosis of intestine, part unspecified, without perforation or abscess without bleeding Category: Medical (14) Internal hemorrhoids: Code(s): K64.8 - Other hemorrhoids Category: Medical Plan Left knee pain: - The patient reports pain in the left leg, with the most severe pain localized to the knee, and some lesser pain in the hip. - This is a recurring problem, and a knee x-ray performed two years ago was normal. - The patient believes the current exacerbation may be due to a recent fall while playing. - The pain improves and then returns. - He has a history of receiving cortisone injections in his knee and hip to manage pain while he was working but wishes to avoid them now. - His activities include hunting and carrying deer, which put stress on his knees. Gastrointestinal Issues: - The patient has stable GERD and is followed by a candle extrusion machine operator. - He recently underwent a colonoscopy two days ago, during which three polyps were removed and biopsied. - The results show diverticulosis, internal hemorrhoids, and some stomach inflammation. - A biopsy confirmed a tubular adenoma, which has malignant potential. - A follow-up colonoscopy in three years is recommended. - Following the procedure, the patient has noticed his stool is black. - His diarrhea has improved. Chronic Disease Management: - Patient's blood pressure is well-controlled on medications - He takes simvastatin 20 mg for hyperlipidemia. - He takes fluticasone nasal spray and cetirizine for stable allergies. - Last labs from December showed no anemia, intact kidney functions, stable liver enzymes, HbA1c of 5.6%, LDL of 51, and normal TSH and B12 levels. - His potassium was low at 3.1 in December and was 3.3 on repeat testing in January. Tinea versicolor: Chronic problem Surgical History: - Colonoscopy with polypectomy (2 days prior) Social History: - Employment: Retired since 2011. - Functional Status/Exercise: Patient is active, engaging in activities such as hunting, walking, and carrying deer. Problem List - Hypertension - Hyperlipidemia - Gastroesophageal reflux disease (GERD) - Allergic rhinitis - Left knee pain - Hypokalemia - History of tubular adenoma of colon - Diverticulosis - Internal hemorrhoids - Gastritis - tinea versicolor - Preventative care: Influenza vaccination - Preventative care: Follow-up colonoscopy [place] [facility] - The patient is followed by a candle extrusion machine operator for GERD and will see them in May for colonoscopy follow-up. Plan - Knee Pain: A small dose of oral prednisone will be prescribed. - Patient advised to wear a knee brace during strenuous activities such as hunting. - Patient advised to call if knee pain persists after finishing the course of prednisone. - Pain management: Tylenol is permitted for pain relief. - GI issues: Patient is advised to avoid NSAIDs such as ibuprofen, Motrin, and Aleve due to stomach inflammation. - The patient will continue omeprazole as directed by his candle extrusion machine operator. - A follow-up colonoscopy is recommended in three years. - Chronic Medications: Continue current medications for hypertension, hyperlipidemia, and allergies. - Health Maintenance: An order will be placed for labs to be completed before the next visit. - The patient was advised to get the senior dose flu vaccine at a pharmacy. - Follow-up: Return to clinic in approximately three months. Orders: Orders Complete Blood Count Auto Diff Today E53.8 - Deficiency of other specified B group vitamins, E66.01 - Morbid (severe) obesity due to excess calories, E78.9 - Disorder of lipoprotein metabolism, unspecified, I10 - Essential (primary) hypertension, J45.20 - Mild intermittent asthma, uncomplicated, K21.9 - Gastro- esophageal reflux disease without esophagitis, M25.562 - Pain in left knee, R73.01 - Impaired fasting glucose, Z68.35 - Body mass index [BMI] 35.0-35.9, adult, Z91.09 - Other allergy status, other than to drugs and biological substances LDL Cholesterol Direct Today E53.8 - Deficiency of other specified B group vitamins, E66.01 - Morbid (severe) obesity due to excess calories, E78.9 - Disorder of lipoprotein metabolism, unspecified, I10 - Essential (primary) hypertension, J45.20 - Mild intermittent asthma, uncomplicated, K21.9 - Gastro- esophageal reflux disease without esophagitis, M25.562 - Pain in left knee, R73.01 - Impaired fasting glucose, Z68.35 - Body mass index [BMI] 35.0-35.9, adult, Z91.09 - Other allergy status, other than to drugs and biological substances Vitamin D 25-OH (D2 and D3) Today E53.8 - Deficiency of other specified B group vitamins, E66.01 - Morbid (severe) obesity due to excess calories, E78.9 - Disorder of lipoprotein metabolism, unspecified, I10 - Essential (primary) hypertension, J45.20 - Mild intermittent asthma, uncomplicated, K21.9 - Gastro- esophageal reflux disease without esophagitis, M25.562 - Pain in left knee, R73.01 - Impaired fasting glucose, Z68.35 - Body mass index [BMI] 35.0-35.9, adult, Z91.09 - Other allergy status, other than to drugs and biological substances Vitamin B12 Today E53.8 - Deficiency of other specified B group vitamins, E66.01 - Morbid (severe) obesity due to excess calories, E78.9 - Disorder of lipoprotein metabolism, unspecified, I10 - Essential (primary) hypertension, J45.20 - Mild intermittent asthma, uncomplicated, K21.9 - Gastro-esophageal reflux disease without esophagitis, M25.562 - Pain in left knee, R73.01 - Impaired fasting glucose, Z68.35 - Body mass index [BMI] 35.0-35.9, adult, Z91.09 - Other allergy status, other than to drugs and biological substances Hemoglobin A1c Today E53.8 - Deficiency of other specified B group vitamins, E66.01 - Morbid (severe) obesity due to excess calories, E78.9 - Disorder of lipoprotein metabolism, unspecified, I10 - Essential (primary) hypertension, J45.20 - Mild intermittent asthma, uncomplicated, K21.9 - Gastro-esophageal reflux disease without esophagitis, M25.562 - Pain in left knee, R73.01 - Impaired fasting glucose, Z68.35 - Body mass index [BMI] 35.0-35.9, adult, Z91.09 - Other allergy status, other than to drugs and biological substances Microalbumin, Random (w Creat) Today E53.8 - Deficiency of other specified B group vitamins, E66.01 - Morbid (severe) obesity due to excess calories, E78.9 - Disorder of lipoprotein metabolism, unspecified, I10 - Essential (primary) hypertension, J45.20 - Mild intermittent asthma, uncomplicated, K21.9 - Gastro- esophageal reflux disease without esophagitis, M25.562 - Pain in left knee, R73.01 - Impaired fasting glucose, Z68.35 - Body mass index [BMI] 35.0-35.9, adult, Z91.09 - Other allergy status, other than to drugs and biological substances Comprehensive Met. Panel Today E53.8 - Deficiency of other specified B group vitamins, E66.01 - Morbid (severe) obesity due to excess calories, E78.9 - Disorder of lipoprotein metabolism, unspecified, I10 - Essential (primary) hypertension, J45.20 - Mild intermittent asthma, uncomplicated, K21.9 - Gastro- esophageal reflux disease without esophagitis, M25.562 - Pain in left knee, R73.01 - Impaired fasting glucose, Z68.35 - Body mass index [BMI] 35.0-35.9, adult, Z91.09 - Other allergy status, other than to drugs and biological substances TSH reflex Free T4 Today E53.8 - Deficiency of other specified B group vitamins, E66.01 - Morbid (severe) obesity due to excess calories, E78.9 - Disorder of lipoprotein metabolism, unspecified, I10 - Essential (primary) hypertension, J45.20 - Mild intermittent asthma, uncomplicated, K21.9 - Gastro- esophageal reflux disease without esophagitis, M25.562 - Pain in left knee, R73.01 - Impaired fasting glucose, Z68.35 - Body mass index [BMI] 35.0-35.9, adult, Z91.09 - Other allergy status, other than to drugs and biological substances Medications: New prednisone 10 mg PO DAILY 7 tabs 0RF 7 days
== END 2025-04-06 11:41 | disposition home or self-care (01) ==
LOC: HO.HMCC 11:19
PROVIDERS: PCP Internal Medicine; Visit Provider Internal Medicine
DX: M25.562 Pain in left knee (principal); D12.6 Benign neoplasm of colon, unspecified; I10 Essential (primary) hypertension; K29.30 Chronic superficial gastritis without bleeding; B36.0 Pityriasis versicolor; E78.9 Disorder of lipoprotein metabolism, unspecified; R73.01 Impaired fasting glucose; E66.01 Morbid (severe) obesity due to excess calories; Z68.35 Body mass index [BMI] 35.0-35.9, adult; E53.8 Deficiency of other specified B group vitamins; Z91.09 Other allergy status, other than to drugs and biological substances; K21.9 Gastro-esophageal reflux disease without esophagitis; J45.20 Mild intermittent asthma, uncomplicated; K57.90 Diverticulosis of intestine, part unspecified, without perforation or abscess without bleeding; K64.8 Other hemorrhoids

== ENCOUNTER → 2025-04-06 11:19 | Outpatient (BNVA) | payer MEDICARE, SELFPAY | PROVIDERS: PCP Internal Medicine; Visit Provider Internal Medicine | DX: M25.562 Pain in left knee (principal); K21.9 Gastro-esophageal reflux disease without esophagitis; E78.5 Hyperlipidemia, unspecified; D12.6 Benign neoplasm of colon, unspecified; I10 Essential (primary) hypertension; K29.30 Chronic superficial gastritis without bleeding; B36.0 Pityriasis versicolor; R73.01 Impaired fasting glucose; E66.812 Obesity, class 2; E66.01 Morbid (severe) obesity due to excess calories; Z68.35 Body mass index [BMI] 35.0-35.9, adult; E53.8 Deficiency of other specified B group vitamins; Z91.09 Other allergy status, other than to drugs and biological substances; J45.20 Mild intermittent asthma, uncomplicated; K57.90 Diverticulosis of intestine, part unspecified, without perforation or abscess without bleeding; K64.8 Other hemorrhoids | CPT/HCPCS: 96127; 99212 ==

== ENCOUNTER 2025-05-05 10:42 | Outpatient (AMB) | payer MEDICARE, SELFPAY ==
--- NOTE | 2025-05-05 10:44 | MHC.OFFVIS ---
Vital Signs 05/05/25 10:46 Height 5 ft 8 in Weight 237 lb BMI 36.0 BP 108/69 Blood Pressure Location Lt brachial Position Sitting Pulse 72 Pulse Oximetry (%) 96 Oxygen Delivery Method Room Air Intake Visit Reasons: sp double results Intake Note: Patient follow up for change in stool, fecal/stool, and lab results. Patient cc: constipation with bloody hemorroids on and off, denies any other GI issues. 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 F/u after EGD and colonoscopy on 03-25 for GERD sxs and colon CA screening. Pt states reflux and epigastric discomfort resolved after omeprazole increased to 40mg daily; famotidine 20mg HS rarely needed (<=3 doses since prior visit). No significant diet or lifestyle changes reported. Has not experienced loose stool or incontinence recently?stools are now formed. Bowel habits generally regular, though mild constipation x2 days, likely related to dietary change (increased rice), no associated pain or alarming sxs. Pt compliant with PPI, interested in restarting probiotic. No barriers to medication access except probiotic not covered by ins, but will purchase OTC. No dietary fiber/increase or hydration efforts reported yet. No hospitalizations, UC visits, or GI flares. [facility] Medical History (Updated 05/06/25 @ 09:30 by Marina Carvalho CNP) Colon polyp Adenomatous colon polyp Constipation Elevated fecal calprotectin Hypokalemia Diarrhea Change in stool B12 deficiency Obesity Environmental allergies Chronic GERD Asthma Hypertension, essential Lipid disorder Surgical History History of esophagogastroduodenoscopy (EGD) Hx of colonoscopy History of appendectomy Family History Father History of open heart surgery Kidney stone HTN (hypertension) Mother HTN (hypertension) Rheumatoid arthritis Maternal Grandfather No problems noted. Maternal Grandmother No problems noted. Paternal Grandfather Diabetes mellitus Stroke Maternal Grandmother No problems noted. Sister No problems noted. Daughter No problems noted. Brother No problems noted. Brother No problems noted. Brother No problems noted. Brother No problems noted. Brother No problems noted. Social History Housing: House Alcohol intake: never Patient Tobacco Use Status: Former Tobacco user Years Smoked: 3 years e-Cigarette/Vaping Use: Never Used service: No Current occupational status: retired Cognitive needs: No Hearing needs: No Vision needs: Yes Review of Systems Const Reports as per HPI ENT Reports as per HPI Card Reports as per HPI Resp Reports as per HPI GI Reports as per HPI Reports as per HPI Physical Exam Vital Signs: Last Vital Signs Pulse 72 05/05/25 10:46 BP 108/69 05/05/25 10:46 Pulse Ox 96 05/05/25 10:46 Oxygen Delivery Method Room Air 05/05/25 10:46 BMI result Body Mass Index 36.0 Const General: healthy appearing, no acute distress and well developed Nutritional Appearance: average body habitus Orientation/consciousness: patient oriented x3 HEENT Head: Yes normal to inspection, Yes normocephalic and Yes atraumatic Face and sinus: Yes normal facial exam Eyes General: appearance normal, both eyes and all related structures Neck Neck: Yes normal visual inspection Resp Effort & Inspection: normal respiratory effort, able to speak in complete sentences, no tracheal deviation and symmetric chest movement GI Inspection: Yes obesity Auscultation: normal bowel sounds Neuro General: patient oriented x3 Gait exam (Neuro): Normal gait present Psych Appearance: grossly normal Mental Status: mental status grossly normal Speech and movement: Normal speech and movement present Affect: normal affect Attitude: cooperative Thought process: Normal thought process present Thought content: Normal thought content present Insight: Good insight present (Psych) Judgement: Good judgement present (Psych) Results Reviewed Results Reviewed: Operative Note Date of Service: 03/25/25 Narrative: Procedure: Upper endoscopy and colonoscopy Indication: GERD, change in bowel habits Endoscopist: Roseanna Wild MD Anesthesia Provider: Davida Guillen CRNA Anesthesia type: MAC Instrument: [id number] and [id number] EGD Procedure: The procedure, indications, preparation and potential complications were reviewed with the patient, who indicated understanding and gave written informed consent to proceed. The endoscope was introduced through the mouth, and advanced to the 2nd part of the duodenum. The mucosa was carefully examined on slow withdrawal of the endoscope. The patient tolerated the procedure well. There were no immediate complications. EGD Findings: Esophagus: Normal esophageal mucosa was noted. The Z-line was at 42 cm. Stomach: Mild erythema and edema of gastric body with a prominent gastric fold in the antrum. Retroflexion was performed in the cardia. Cold forceps biopsies were taken from the stomach body and antrum. Duodenum: Normal duodenal mucosa. Cold forceps biopsies were taken from the duodenal bulb and 2nd portion of the duodenum to rule out celiac sprue. Colonoscopy Procedure: The patient was then turned for the colonoscopy. A digital rectal exam was performed which was normal. A distal attachment cap was affixed to the tip of the scope and the colonoscope was then inserted through the anus and advanced through the colon and advanced to the cecum at 80 cm and terminal ileum. Appendiceal orifice and ileocecal valve were identified. Mucosa was carefully examined under high definition white light as the instrument was slowly withdrawn in a retrograde panoramic fashion. Retroflexion was performed in rectum. The procedure was not difficult. The quality of the prep was BBPS: 3+2+2 = adequate Withdrawal time 12 minutes Limitations: No limitations Findings: Mucosa: Normal colon and terminal ileum mucosa. Cold forceps biopsies were taken of the right and left side of the colon to rule out microscopic colitis. Protruding lesions: One sessile polyp of size 4 mm noted in cecum. Cold snare polypectomy was performed. The polyp was completely removed and retrieved. Two sessile polyps of size 2-6 mm noted in transverse colon. Cold snare polypectomy was performed. The polyps were completely removed and retrieved. Medium internal hemorrhoids without stigmata of recent bleeding. Excavated lesions: Mild diverticulosis of sigmoid colon. Impression: 1. Normal esophagus 2. Gastritis (biopsy) 3. Normal duodenum (biopsy) 4. Normal colon and terminal ileum mucosa (biopsy) 5. Total 3 polyps removed 6. Diverticulosis 7. Internal hemorrhoids Recommendations: Follow-up path results Avoid NSAIDs H Pylori treatment if biopsies + Cont PPI Repeat colonoscopy in 3 years if all 3 polyps are adenomas, otherwise 7 years. PATHOLOGY: Collected: 03/25/25 Location: [facility] Received: 03/25/25 Diagnosis A. Duodenum, biopsy: Duodenal mucosa with preserved villi and no specific change. B. Gastric antrum, biopsy: Scant gastric antral mucosa with congestion and focal minimal chronic inactive inflammation; no H. pylori seen; negative intestinal metaplasia and dysplasia. C. Gastric body, biopsy: Gastric body mucosa with features suggesting proton pump inhibitor effect and focal minimal chronic inactive inflammation; negative for H. pylori, intestinal metaplasia and dysplasia. D. Colon, transverse, polyps: Sessile serrated lesion/polyp without dysplasia (1 piece), and multiple fragments consistent with hyperplastic polyps. E. Colon, cecal polyp: Tubular adenoma, inflamed; negative for high-grade dysplasia and carcinoma. F. Colon, right, biopsy: Colonic mucosa with minor crypt distortion, otherwise no specific change; no evidence of microscopic colitis. Clinical History Pre-Op Dx: GERD, change in bowel habits Post-Op Dx: Gastritis, diverticulosis, colon polyps, hemorrhoids Assessment & Plan Assessment & Plan (1) Chronic GERD: Comment: 03/25/25 EGD1 -normal esophagus, Gastritis , Normal duodenum Code(s): K21.9 - Gastro-esophageal reflux disease without esophagitis Category: Medical Plan: improving, sxs resolved on omeprazole 40mg; famotidine rarely needed. Additional Testing: None at present. Medications: Continue omeprazole 40mg QAM; famotidine 20mg HS prn. Lifestyle Recommendations: Reinforce avoidance of late night eating, promote gradual adoption of GERD prevention diet as previously discussed. Referrals / Coordination of Care: None needed. F/U Plan: Return in 3 months unless recurrence of sxs. (2) Colon polyp: Comment: 03/25/25 colonoscopy complete with adequate prep-Normal colon and terminal ileum mucosa , diverticulosis (sigmoid), 2-6 mm SSP without dysplasia (1 piece) + mx fragments c/w HP ( transverse),4 mm TA ( cecum), medium internal hemorrhoids. Recommendations for repeat in 3 years (2027). Code(s): K63.5 - Polyp of colon Category: Medical Qualifiers: Colon polyp type: adenomatous Colon location: transverse Qualified Code(s): D12.3 - Benign neoplasm of transverse colon Plan: All polyps removed, no evidence of carcinoma/dysplasia. Additional Testing: None now. Surveillance interval 3 years, due 2027 Medications: None specific. Lifestyle Recommendations: Reinforce CRC prevention: maintain diet high in fruit/fiber, minimize processed foods. Referrals / Coordination of Care: As per GI. F/U Plan: as above (3) Diverticulosis: Code(s): K57.90 - Diverticulosis of intestine, part unspecified, without perforation or abscess without bleeding Category: Medical Plan: Asymptomatic, found incidentally. Focus on prevention. Additional Testing: None unless sxs develop. Medications: None. Lifestyle Recommendations: Increase dietary fiber (fruits/veggies), maintain adequate hydration; educational handout provided re: fiber introduction. Referrals / Coordination of Care: None. F/U Plan: Routine GI follow-up. (4) Elevated fecal calprotectin: Code(s): R19.5 - Other fecal abnormalities Category: Medical Plan: Previous testing showed elevated marker, but colonoscopy NL; repeat indicated. Additional Testing: Repeat stool for inflammation (fecal calprotectin) ? kit ordered, to be submitted when formed stools available. If elevated, will proceed w/ CT enterography to r/o small bowel disease. Medications: None specific. Lifestyle Recommendations: Continue current regimen; no changes. Referrals / Coordination of Care: Radiology if future imaging needed. F/U Plan: Await stool test results; call with results and plan. F/u office in 3 months. (5) Constipation: Code(s): K59.00 - Constipation, unspecified Category: Medical Qualifiers: Constipation type: unspecified constipation type Qualified Code(s): K59.00 - Constipation, unspecified Plan: Mild, acute, likely dietary; no pain, alarming sxs. Additional Testing: None if resolves; monitor until end of week, notify if persists. Medications: None at this time. Lifestyle Recommendations: Increase fruits, vegetables, water intake; physical activity; consider OTC fiber supplement if no improvement. Referrals / Coordination of Care: None. F/U Plan: Report persistent constipation or new sxs. Plan Follow-up in 3 months or sooner as needed Time: I spent a total of 30 minutes on the date of encounter which includes: Preparing to see the patient (reviewed previous documentation, test results and medical history) Performing a medically appropriate exam and/or evaluation Ordering medications, tests, and procedures Documenting clinical information in the health record Orders: Orders Calprotectin, Fecal 05/05/25 R19.5 - Other fecal abnormalities Coding Level of Care Code Established Pt Est Pt Level 3 (99324) Patient Type Established Diagnoses Chronic GERD K21.9 Adenomatous polyp of transverse colon D12.3 Colon polyp type: adenomatous Colon location: transverse Diverticulosis K57.90 Elevated fecal calprotectin R19.5 Constipation, unspecified constipation type K59.00 Constipation type: unspecified constipation type
[2025-05-05 10:46] VITALS: BP 108/69; PULSE 72; O2SAT 96; BMI 36.0
== END 2025-05-05 11:44 | disposition home or self-care (01) ==
LOC: HO.HGI 10:42
PROVIDERS: PCP Internal Medicine; Visit Provider Nurse Practitioner Family
DX: K21.9 Gastro-esophageal reflux disease without esophagitis (principal); D12.3 Benign neoplasm of transverse colon; K57.90 Diverticulosis of intestine, part unspecified, without perforation or abscess without bleeding; R19.5 Other fecal abnormalities; K59.00 Constipation, unspecified
CPT/HCPCS: 99213

== ENCOUNTER → 2025-05-05 10:42 | Outpatient (BNVA) | payer MEDICARE, SELFPAY | PROVIDERS: PCP Internal Medicine; Visit Provider Nurse Practitioner Family | DX: K21.9 Gastro-esophageal reflux disease without esophagitis (principal); D12.3 Benign neoplasm of transverse colon; K57.90 Diverticulosis of intestine, part unspecified, without perforation or abscess without bleeding; R19.5 Other fecal abnormalities; K59.00 Constipation, unspecified; Z79.899 Other long term (current) drug therapy | CPT/HCPCS: 99212 ==

== ENCOUNTER 2025-05-06 12:42 | Outpatient (REF) | payer MEDICARE, SELFPAY | END 2025-05-06 12:43 | disposition home or self-care (01) | LOC: HO.LNP 12:42 | PROVIDERS: Visit Provider Nurse Practitioner Family | DX: R19.5 Other fecal abnormalities (principal) | CPT/HCPCS: 83993 ==